=== PATIENT | female | born 1980 | race Two or more races ===

== ENCOUNTER 2020-10-05 13:57 | Outpatient (REF) | payer OTHER, SELFPAY ==
[2020-10-05 15:02] LABS: Albumin Level 4.6 g/dL (3.5-5.0); Calcium 9.5 mg/dL (8.4-10.2); Phosphorus 3.1 mg/dL (2.7-4.5)
[2020-10-05 15:25] LABS: Free T4 (Free Thyroxine) 1.21 ng/dL (0.71-1.85); Thyroid Stimulating Hormone 0.86 uIU/mL (0.32-4.0)
[2020-10-06 17:17] LABS: Calcium (PTHI) 9.5 mg/dL (8.6-10.2); PTHI 55 pg/mL (14-64)
== END 2020-10-05 13:58 | disposition home or self-care (01) ==
LOC: HO.LAB 13:57
PROVIDERS: PCP Nurse Practitioner Family; Visit Provider Internal Medicine
DX: E03.9 Hypothyroidism, unspecified (principal)
CPT/HCPCS: 36415; 82040; 82310; 83970; 84100; 84439; 84443

== ENCOUNTER → 2020-10-06 13:21 | Outpatient (BNVA) | payer OTHER, SELFPAY | PROVIDERS: PCP Nurse Practitioner Family; Visit Provider Surgery | DX: N64.52 Nipple discharge (principal); Z80.3 Family history of malignant neoplasm of breast | CPT/HCPCS: 99212 ==

== ENCOUNTER 2020-10-12 11:15 | Outpatient (REF) | payer OTHER, SELFPAY ==
--- NOTE | 2020-10-12 | MM_ITS ---
EXAMINATION: MM DIAGNOSTIC DIGITAL BREAST TOMOSYNTHESIS, BILATERAL US DIAGNOSTIC ULTRASOUND BREAST, BILATERAL CLINICAL INFORMATION: 39-year-old with chronic history bilateral nipple discharge for many years with recent bilateral retroareolar mastodynia and periareolar erythema. Remote history bilateral reduction mammoplasty and bilateral nipple piercing, both over 15 years ago. The remote history benign left breast biopsy. Family history breast cancer mother, age 58 and breast cancer history and 4 maternal aunts. Mother and aunts BRCA negative by patient history. The lifetime risk of breast cancer based on the Tyrer-Cuzick Model is 25%. COMPARISON: Mammography: 05/12/2019, 05/27/2016 TECHNIQUE: Digital breast tomosynthesis is performed in both the craniocaudal and mediolateral oblique views along with computer-aided detection (CAD). Synthesized 2D images are generated from the tomosynthesis. Ultrasound of both breasts is performed using grayscale imaging and color Doppler without and with harmonics. Both breasts are imaged retroareolar and periareolar region as well as lower outer quadrant right breast. FINDINGS: There are scattered areas of fibroglandular density (ACR BI-RADS breast composition Category b). Breast parenchymal pattern is similar to prior study. There is a stable mass with adjacent biopsy clip marker posterior 6:30 o'clock left breast. Scattered bilateral anterior breast calcifications are present and minor bilateral scarring consistent with the prior history reduction mammoplasty. There is no developing density or interval mass or architectural abnormality or abnormal calcifications. No focal skin thickening or coarsening of the Mikael's ligaments. Ultrasound of each breast demonstrates no architectural abnormality, focal duct ectasia, or intraductal lesion. There is no solid mass, skin thickening, or edema tracking in soft tissue planes. No abnormal color flow. There is a right retroareolar cyst measuring 0.5 cm. There is a left retroareolar cyst measuring 0.7 cm with fine incomplete avascular internal septations. Results are discussed with the patient at time of visit. Patient has appointment with Dr. Velazquez to follow today. Results called to medical representative (Ofe) for Dr. Velazquez at time of imaging. MM/MM diagnostic mammo BI IMPRESSION: 1. Mammography without significant change from prior studies. 2. Targeted ultrasound shows no solid mass, abscess, or focal duct ectasia. ASSESSMENT: BI-RADS 2: Benign RECOMMENDATION: 1. Patient should be managed based on the clinical impression. Decision to proceed with biopsy should be based on clinical grounds and degree of clinical concern. 2. The lifetime risk of breast cancer based on the Tyrer-Cuzick Model is 25%. Additional annual adjunct screening with breast MRI may be of benefit in women with a risk score of 20% or greater. 3. Otherwise, routine annual screening digital breast tomosynthesis. This patient's information was entered into a reminder system with a target due date for their next mammogram.
--- NOTE | 2020-10-12 11:29 | US_ITS ---
EXAMINATION: MM DIAGNOSTIC DIGITAL BREAST TOMOSYNTHESIS, BILATERAL US DIAGNOSTIC ULTRASOUND BREAST, BILATERAL CLINICAL INFORMATION: 39-year-old with chronic history bilateral nipple discharge for many years with recent bilateral retroareolar mastodynia and periareolar erythema. Remote history bilateral reduction mammoplasty and bilateral nipple piercing, both over 15 years ago. The remote history benign left breast biopsy. Family history breast cancer mother, age 58 and breast cancer history and 4 maternal aunts. Mother and aunts BRCA negative by patient history. The lifetime risk of breast cancer based on the Tyrer-Cuzick Model is 25%. COMPARISON: Mammography: 05/12/2019, 05/27/2016 TECHNIQUE: Digital breast tomosynthesis is performed in both the craniocaudal and mediolateral oblique views along with computer-aided detection (CAD). Synthesized 2D images are generated from the tomosynthesis. Ultrasound of both breasts is performed using grayscale imaging and color Doppler without and with harmonics. Both breasts are imaged retroareolar and periareolar region as well as lower outer quadrant right breast. FINDINGS: There are scattered areas of fibroglandular density (ACR BI-RADS breast composition Category b). Breast parenchymal pattern is similar to prior study. There is a stable mass with adjacent biopsy clip marker posterior 6:30 o'clock left breast. Scattered bilateral anterior breast calcifications are present and minor bilateral scarring consistent with the prior history reduction mammoplasty. There is no developing density or interval mass or architectural abnormality or abnormal calcifications. No focal skin thickening or coarsening of the Mikael's ligaments. Ultrasound of each breast demonstrates no architectural abnormality, focal duct ectasia, or intraductal lesion. There is no solid mass, skin thickening, or edema tracking in soft tissue planes. No abnormal color flow. There is a right retroareolar cyst measuring 0.5 cm. There is a left retroareolar cyst measuring 0.7 cm with fine incomplete avascular internal septations. Results are discussed with the patient at time of visit. Patient has appointment with Dr. Velazquez to follow today. Results called to medical device assembler (Ofe) for Dr. Velazquez at time of imaging. US/US breast LT limited IMPRESSION: 1. Mammography without significant change from prior studies. 2. Targeted ultrasound shows no solid mass, abscess, or focal duct ectasia. ASSESSMENT: BI-RADS 2: Benign RECOMMENDATION: 1. Patient should be managed based on the clinical impression. Decision to proceed with biopsy should be based on clinical grounds and degree of clinical concern. 2. The lifetime risk of breast cancer based on the Tyrer-Cuzick Model is 25%. Additional annual adjunct screening with breast MRI may be of benefit in women with a risk score of 20% or greater. 3. Otherwise, routine annual screening digital breast tomosynthesis. This patient's information was entered into a reminder system with a target due date for their next mammogram.
== END 2020-10-12 11:16 | disposition home or self-care (01) ==
LOC: HO.MAMMO 11:15
PROVIDERS: Visit Provider Surgery
DX: N64.52 Nipple discharge (principal); N64.4 Mastodynia; Z80.3 Family history of malignant neoplasm of breast
CPT/HCPCS: 76642; 77066; 99212

== ENCOUNTER → 2020-10-18 13:32 | Outpatient (BNVA) | payer OTHER, SELFPAY | PROVIDERS: PCP Nurse Practitioner Family; Visit Provider Surgery | DX: N61.1 Abscess of the breast and nipple (principal) | CPT/HCPCS: 99212 ==

== ENCOUNTER 2020-10-20 08:06 | Day surgery (SDC) | payer OTHER, SELFPAY ==
[2020-10-19 10:03] VITALS: BMI 24.2
--- NOTE | 2020-10-19 12:32 | HO.ANESPROP2 ---
HPI - Anesthesia Eval Consult details Narrative: 39yo F for I&D Abscess of bilateral breast s/p thyroidectomy 08/30/2020 for tx of Graves ds PMFSH Past Medical History Medical History (Updated 10/19/20 @ 12:37 by Yakelin Fox) Graves disease Hypothyroidism Interstitial cystitis Nipple discharge Family History Family History Mother Graves disease Heart disease Breast cancer Maternal Aunt History of kidney cancer Maternal Aunt Breast cancer History of carcinoma Surgical History Surgical History (Updated 10/19/20 @ 12:37 by Yakelin Fox) History of kidney surgery History of partial hysterectomy Hx of breast reduction, elective Hx of knee surgery Hx of lumpectomy S/P thyroidectomy (~08/2020) Social History Social History Alcohol intake: never Smoking Status: Current every day smoker Meds Allergies Allergy/AdvReac Type Severity Reaction Status Date / Time cephalexin [Keflex] Allergy Unknown syncope Verified 05/19/20 00:00 ciprofloxacin [Cipro] Allergy Unknown dizziness Verified 05/19/20 00:00 penicillin V Allergy Unknown Hives Verified 10/20/20 09:12 Sun Allergy Unknown Hives Uncoded 04/28/19 00:00 Home Medications Medication Instructions Recorded Confirmed Type diazepam 10 mg tablet 10 mg VAGINAL DAILY 10/06/20 10/18/20 History hydroxyzine HCl 50 mg tablet 50 mg PO BEDTIME 10/06/20 10/18/20 History Exam Exam Date and Time: October 19, 2020 1232 Height,Weight and Vital Signs: Height 5 ft 2 in Weight 60 kg Assessment and Plan Assessment Anesthesia Assessment: Chart Reviewed
--- NOTE | 2020-10-20 09:05 | MHC.SHP ---
Pre-Procedural Eval Section A The patient is an INPATIENT: No Changes since office visit: Yes Patient answered all questions; No Cold of Flu in the past 2 weeks, No New Medical Problems and No Changes in Medication The History & Physical has been completed within 30 days and I have reviewed it.: Yes Section B Chief Complaint: breast abscess Allergies: Allergies Allergy/AdvReac Type Severity Reaction Status Date / Time cephalexin [Keflex] Allergy Unknown syncope Verified 05/19/20 00:00 ciprofloxacin [Cipro] Allergy Unknown dizziness Verified 05/19/20 00:00 penicillin V Allergy Unknown Hives Unverified 05/19/20 00:00 Sun Allergy Unknown Hives Uncoded 04/28/19 00:00 Plan Diagnosis/Plan: Unchanged I have reviewed the history and physical and performed a pertinent physical examination on my patient. No changes have occurred unless specified.
[2020-10-20 09:09] VITALS: BP 102/55; PULSE 69; RESP 18; TEMP 36.6; O2SAT 99
[2020-10-20] MEDS: Lactated Ringers 1,000 ML 100 ML IVCONT (09:16)
[2020-10-20] MEDS: vancomycin HCL 1,000 MG in 0.9 % Sodium Chloride 250 ML 270 MG IV (09:16)
[2020-10-20 10:09] VITALS: BP 139/89; PULSE 109; RESP 12; TEMP 36; O2SAT 100
[2020-10-20 10:14] VITALS: BP 141/85; PULSE 94; RESP 14; O2SAT 98
[2020-10-20 10:19] VITALS: BP 122/73; PULSE 91; RESP 16; O2SAT 99
--- NOTE | 2020-10-20 10:20 | PM.OP ---
Brief Operative Note Date of Service: 10/20/20 Pre-op diagnosis: Bilateral breast abscess Post-op diagnosis: same Procedure: Incision and drainage bilateral breast abscess Implants: Non Surgeon: Chuy Velazquez MD Anesthesia: GLMA Supervisor [employer]: Shu Rucker Estimated blood loss (mL): 5 Pathology: none sent Condition: stable Disposition: PACU
--- NOTE | 2020-10-20 10:21 | P.OP_ITS ---
Operative Note Operative Note Date of Service: 10/20/20 Narrative: Preoperative diagnosis: Bilateral breast abscess Postoperative diagnosis: Same Procedure: Incision and drainage bilateral breast abscess Surgeon: Chuy Velazquez MD Senior Network Security Architect: Shu Rucker PA-C Anesthesia: General LMA Indication for procedure 39-year-old female patient presenting with recurrent bilateral breast infections found to have purulence discharge from the areola. She has a prior history of breast reduction and nipple piercings. Operative findings: Patient was found to have bilateral subareolar cavities with minimal. The material some granulation tissue. This was opened and drained. Cultures were obtained of the space and Arlington drains left in place. Specimen: Wound cultures Estimated blood loss 5 mL Complications: None Procedure details: Patient was brought to the OR and placed in a supine position. After administering general anesthesia the patient's breasts were prepped with ChloraPrep and draped in a sterile fashion. A surgical time-out was called the consent confirmed. Patient received preoperative antibiotics and Venodyne boots were placed. Local anesthesia consisting of 0.75% Sensorcaine was then infiltrated and ed areolar location in both breasts. Incision was made in the left breast at the 9 to 10 o'clock position at the nipple-areolar complex. Incision was carried down through subcutaneous tissue and retroareolar. A large cavity was identified. Cultures were obtained of this location. The granulation tissue was noted. Discharge is also noted from the previous piercing tract. This was probed with a lacrimal probe in the openings gently debrided. Wounds were then further anesthetized with the Sensorcaine. A quarter-inch Arlington drain was then placed within the hollows of this cavity and secured to the skin with a 4-0 nylon sutur e. Attention was then directed to the right breast were again a circumareolar incision was made the scalpel at the 2 to 3 o'clock position. This was carried out through subcutaneous tissue into the retroareolar space. Similar findings were noted on the right side. Wounds were further anesthetized and a Meg drain placed within the cavity. This was then secured to the skin with a 4-0 nylon suture. Sterile dressings consisting of gauze and ABD pads were then applied to both breasts followed by paper tape. Patient was woken from anesthesia and transported to PACU in stable condition. The patient tolerated the procedure well. Sponge, instrument, needle counts reported as correct.
[2020-10-20 10:24] VITALS: BP 116/67; PULSE 79; RESP 18; O2SAT 100
[2020-10-20 10:39] VITALS: BP 110/61; PULSE 81; RESP 18; TEMP 37.3; O2SAT 100
--- NOTE | 2020-10-20 11:17 | HO.POSTANES ---
Post Anesthesia Evaluation Post Anesthesia Evaluation Vital Signs: Vital Signs Temp Pulse Resp BP Pulse Ox 10/20/20 10:39 99.2 F 81 18 110/61 100 10/20/20 10:24 79 18 116/67 100 10/20/20 10:19 91 16 122/73 99 10/20/20 10:14 94 14 141/85 H 98 10/20/20 10:09 96.8 F 109 H 12 139/89 100 10/20/20 09:09 97.8 F 69 18 102/55 L 99 Anesthesia: General Mental Status: Awake Pain Control: Satisfactory Nausea/Vomiting: None Hydration: Adequate Anesthesia-Related Issues: No Anes. Related Issues
--- NOTE | 2020-10-20 11:20 | P.POSTANES_ITS ---
Post Anesthesia Evaluation Post Anesthesia Evaluation Vital Signs: Vital Signs Temp Pulse Resp BP Pulse Ox 10/20/20 10:39 99.2 F 81 18 110/61 100 10/20/20 10:24 79 18 116/67 100 10/20/20 10:19 91 16 122/73 99 10/20/20 10:14 94 14 141/85 H 98 10/20/20 10:09 96.8 F 109 H 12 139/89 100 10/20/20 09:09 97.8 F 69 18 102/55 L 99 Anesthesia: General LMA Mental Status: Awake Pain Control: Satisfactory Nausea/Vomiting: None Hydration: Adequate Anesthesia-Related Issues: No Anes. 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 Some minor bleeding noted.)
== END 2020-10-20 11:18 | disposition home or self-care (01) ==
PROVIDERS: PCP Nurse Practitioner Family; Visit Provider Surgery
PROC: (CPT 19120; principal; 2020-10-20 09:30)
DX: N61.1 Abscess of the breast and nipple (principal); Z98.890 Other specified postprocedural states
CPT/HCPCS: 19120; 87071; 87205; J1100; J2250; J2405; J3370

== ENCOUNTER → 2020-10-27 08:58 | Outpatient (BNVA) | payer MEDICAID, SELFPAY | PROVIDERS: PCP Nurse Practitioner Family; Visit Provider Internal Medicine ==

== ENCOUNTER → 2020-10-28 10:18 | Outpatient (BNVA) | payer OTHER, SELFPAY | PROVIDERS: PCP Nurse Practitioner Family; Visit Provider Surgery | DX: N61.1 Abscess of the breast and nipple (principal) | CPT/HCPCS: 99212 ==

== ENCOUNTER → 2020-11-02 15:50 | Outpatient (BNVA) | payer OTHER, SELFPAY | PROVIDERS: PCP Nurse Practitioner Family; Visit Provider Surgery | DX: N61.0 Mastitis without abscess (principal) | CPT/HCPCS: 99212 ==

== ENCOUNTER → 2020-11-25 09:55 | Outpatient (BNVA) | payer OTHER, SELFPAY | PROVIDERS: PCP Nurse Practitioner Family; Visit Provider Surgery | DX: L08.9 Local infection of the skin and subcutaneous tissue, unspecified (principal) | CPT/HCPCS: 99212 ==

== ENCOUNTER 2021-02-01 11:10 | Outpatient (REF) | payer OTHER, SELFPAY ==
[2021-02-01 12:58] LABS: Free T4 (Free Thyroxine) 0.94 ng/dL (0.71-1.85); Thyroid Stimulating Hormone 0.25 uIU/mL (0.32-4.0); Vitamin D 25-OH Total 20.9 ng/mL (>30)
[2021-02-02 09:11] LABS: Thyroglobulin Antibodies 3 IU/mL (< or = 1)
[2021-02-02 17:41] LABS: Thyroglobulin <0.1 ng/mL
== END 2021-02-01 11:11 | disposition home or self-care (01) ==
LOC: HO.LAB 11:10
PROVIDERS: Visit Provider Internal Medicine
DX: C73 Malignant neoplasm of thyroid gland (principal); E55.9 Vitamin D deficiency, unspecified
CPT/HCPCS: 36415; 82306; 84432; 84439; 84443; 86800

== ENCOUNTER → 2021-02-02 11:47 | Outpatient (BNVA) | payer OTHER, SELFPAY | PROVIDERS: PCP Nurse Practitioner Family; Visit Provider Internal Medicine ==

== ENCOUNTER 2021-02-09 14:11 | Outpatient (REF) | payer OTHER, SELFPAY ==
--- NOTE | ~2021-02-09 | US_ITS ---
EXAMINATION: US SOFT TISSUE NECK CLINICAL INFORMATION: Malignant neoplasm of thyroid gland. Status post total thyroidectomy 08/30/2020. COMPARISON: Ultrasound soft tissue head/neck thyroid dated 04/16/2019. TECHNIQUE: Ultrasound of the neck soft tissues is performed with high- frequency kirby-scale imaging and color Doppler. FINDINGS: THYROID BED: Prior thyroidectomy. No residual thyroid tissue demonstrated in the thyroid bed. No cystic or solid nodules demonstrated in the thyroid bed. RIGHT NECK SOFT TISSUES: Scattered architecturally normal nodes are present. The nodes show normal fatty hilus, normal cortical thickness, and no cystic change or calcification. No abnormal color flow. The largest nodes are as follows: Level 2: 3.0 x 0.6 x 2.1 cm. Abnormal raul architecture, likely cystic. Level 2: 0.9 x 0.3 x 0.7 cm. Normal raul architecture. Level 3:1.1 x 0.3 x 0.5 cm. Normal raul architecture. Level 5A: 0.5 x 0.3 x 0.6 cm. Normal raul architecture. LEFT NECK SOFT TISSUES: Scattered architecturally normal nodes are present. The nodes show normal fatty hilus, normal cortical thickness, and no cystic change or calcification. No abnormal color flow. The largest nodes are as follows: Level 1B: 0.8 x 0.5 x 0.9 cm. Abnormal raul architecture. Level 1B: 1.1 x 0.4 x 0.6 cm. Normal raul architecture. Level 2: 1.1 x 0.7 x 1.5 cm. Abnormal raul architecture. Internal cystic texture. Level 2:1.3 x 0.8 x 1.2 cm. Abnormal raul architecture with internal cystic texture. Level 2:1.9 x 0.7 x 1.2 cm. Abnormal raul architecture with thickened cortex and cystic texture. Level 5A: 1.4 x 0.3 x 1.2 cm. Abnormal architecture. US/US soft tiss head and/or neck IMPRESSION: 1. Total thyroidectomy with no residual thyroid seen in the thyroid bed. 2. If clinically indicated further evaluation of the neck soft tissues and nodes may be performed with CT soft tissue neck with intravenous contrast. 3. Several right and left lymph nodes with abnormal texture most of them appearing cystic. No solid lesions seen.
== END 2021-02-09 14:12 | disposition home or self-care (01) ==
LOC: HO.HMGCX 14:11
PROVIDERS: PCP Nurse Practitioner Family; Visit Provider Internal Medicine
DX: C73 Malignant neoplasm of thyroid gland (principal); E03.9 Hypothyroidism, unspecified
CPT/HCPCS: 76536

== ENCOUNTER 2021-02-22 11:21 | Outpatient (REF) | payer OTHER, SELFPAY ==
--- NOTE | ~2021-02-22 | US_ITS ---
EXAMINATION: ULTRASOUND-GUIDED LYMPH NODE BIOPSY CLINICAL INFORMATION: Thyroid cancer. COMPARISON: Previous soft tissue head and neck ultrasound most recent 02/09/2021 TECHNIQUE: Procedure and risks and benefits including bleeding and infection were discussed with the patient and informed consent was obtained. Initially, the right neck prepped and draped in usual sterile fashion. The skin and soft tissues of the right submandibular region were prepped and draped in usual sterile fashion. Using ultrasound guidance and a 25-gauge needle, access to the prominent right level 2 lymph node was obtained. 2 25-gauge FNA specimens were obtained. Subsequently, the left submandibular region was prepped and draped in the usual sterile fashion. The skin and soft tissues were anesthetized with 1% lidocaine plain. Using ultrasound guidance and a 25-gauge needle, both prominent left level 2 lymph nodes were sampled, one from the more inferior lymph node and 2 from the more superior lymph node. FINDINGS: There are prominent bilateral level 2 lymph nodes, one on the right and two on the left that were targeted for ultrasound-guided fine-needle aspiration. US/US biopsy lymph node IMPRESSION: Ultrasound-guided bilateral cervical lymph node fine-needle aspiration.
[2021-02-22] MEDS: Lidocaine HCl 1 % MPF 5 ML VIAL SUBCUT (12:54)
[2021-02-25 03:46] LABS: Thyroglobulin, Fine Needle Asp <0.1 ng/mL
== END 2021-02-22 11:22 | disposition home or self-care (01) ==
LOC: HO.US 11:21
PROVIDERS: Radiology Diagnostic Radiology; PCP Internal Medicine; Visit Provider Internal Medicine
DX: C73 Malignant neoplasm of thyroid gland (principal)
CPT/HCPCS: 36415; 38505; 76942; 88172; 88173

== ENCOUNTER 2021-04-26 13:03 | Outpatient (REF) | payer OTHER, SELFPAY ==
[2021-04-26 17:22] LABS: Free T4 (Free Thyroxine) 0.88 ng/dL (0.71-1.85); Thyroid Stimulating Hormone 29.04 uIU/mL (0.32-4.0); Vitamin D 25-OH Total 23.4 ng/mL (>30)
[2021-04-27 12:22] LABS: Thyroglobulin 0.2 ng/mL; Thyroglobulin Antibodies 1 IU/mL (< or = 1)
== END 2021-04-26 13:04 | disposition home or self-care (01) ==
LOC: HO.LAB 13:03
PROVIDERS: PCP Nurse Practitioner Family; Visit Provider Internal Medicine
DX: C73 Malignant neoplasm of thyroid gland (principal); E89.0 Postprocedural hypothyroidism; E55.9 Vitamin D deficiency, unspecified; R59.0 Localized enlarged lymph nodes; Z79.899 Other long term (current) drug therapy
CPT/HCPCS: 36415; 82306; 84432; 84439; 84443; 86800

== ENCOUNTER 2021-05-09 13:46 | Outpatient (REF) | payer OTHER, SELFPAY ==
--- NOTE | ~2021-05-09 | XR_ITS ---
EXAMINATION: XR KNEE, RIGHT CLINICAL INFORMATION: Pain. COMPARISON: None TECHNIQUE: Two views of the right knee. FINDINGS: Bones and soft tissues are normal. No fracture or joint effusion. Alignment is anatomic. Joint spaces are well maintained. No abnormal soft tissue calcification. XR/XR knee RT 2V IMPRESSION: Normal right knee.
--- NOTE | ~2021-05-09 | XR_ITS ---
EXAMINATION: XR HAND, RIGHT CLINICAL INFORMATION: Pain. COMPARISON: Right wrist March 29, 2020 TECHNIQUE: Three views of the right hand. FINDINGS: The bones and soft tissues are normal. No fracture. Alignment is anatomic. Joint spaces are maintained. No erosions or soft tissue calcifications. XR/XR hand RT min 3V IMPRESSION: Normal right hand.
--- NOTE | ~2021-05-09 | XR_ITS ---
EXAMINATION: XR HAND, LEFT CLINICAL INFORMATION: Pain. COMPARISON: None TECHNIQUE: Three views of the left hand. FINDINGS: The bones and soft tissues are normal. No fracture. Alignment is anatomic. Joint spaces are maintained. No erosions or soft tissue calcifications. XR/XR hand LT min 3V IMPRESSION: Normal left hand.
--- NOTE | ~2021-05-09 | XR_ITS ---
EXAMINATION: XR KNEE, LEFT CLINICAL INFORMATION: Pain. COMPARISON: None TECHNIQUE: Two views of the left knee. FINDINGS: Bones and soft tissues are normal. No fracture or joint effusion. Alignment is anatomic. Joint spaces are well maintained. No abnormal soft tissue calcification. XR/XR knee LT 2V IMPRESSION: Normal left knee.
[2021-05-09 16:26] LABS: MANUAL DIFF FLAG NO
[2021-05-09 16:33] LABS: Basophils Absolute Auto 0.1 X10*3/uL (0.0-0.2); Eosinophils Absolute Auto 0.2 X10*3/uL (0.0-0.4); Eosinophils Percent Auto 2.8 % (0-4); Hematocrit 37.8 % (37-47); Hemoglobin 12.5 g/dl (12.0-16.0); Imm Gran Abs Auto 0.03 X10*3/uL (0.00-0.03); Imm Gran Pct Auto 0.4 % (0.0-0.4); Lymphocytes Absolute Auto 3.1 X10*3/uL (1.2-4.9); Mean Corpuscular HGB Conc 33.1 g/dl (31.0-35.0); Mean Corpuscular Hemoglobin 31.9 pg (27.0-33.0); Mean Corpuscular Volume 96.4 fL (80-98); Mean Platelet Volume 10.7 fL (9.4-12.3); Monocytes Absolute Auto 0.4 X10*3/uL (0.1-1.2); Monocytes Percent Auto 4.7 % (2-11); Neutrophils Absolute Auto 4.3 X10*3/uL (2.0-8.3); Neutrophils Percent Auto 53.1 % (45-73); Platelet Count 313 X10*3/uL (160-400); Red Blood Count 3.92 X10*6/uL (4.20-5.50); Red Cell Distribution Width 13.2 % (11.0-16.0); White Blood Count 8.1 X10*3/uL (4.8-10.8)
[2021-05-09 16:43] LABS: Alanine Aminotransferase 9 U/L (0-31); Albumin Level 4.8 g/dL (3.5-5.0); Alkaline Phosphatase 54 U/L (39-117); Anion Gap 13 (12-20); Aspartate Amino Transferase 14 U/L (5-31); Bilirubin Total 0.4 mg/dL (0.0-1.0); Blood Urea Nitrogen 15 mg/dL (9-16); C Reactive Protein 0.06 mg/dL (< or = 0.50); Calcium 9.3 mg/dL (8.4-10.2); Carbon Dioxide 24 mmol/L (22-29); Chloride 106 mmol/L (96-108); Estimated Glomerular Filt Rate > 60; Glucose Random 111 mg/dL (60-115); Potassium 4.1 mmol/L (3.3-5.1); Sodium 139 mmol/L (135-145); Total Protein 7.3 g/dL (6.5-8.0)
[2021-05-09 17:10] LABS: Erythrocyte Sedimentation Rate 6 MM/HR (0-20)
[2021-05-09 17:56] LABS: Rheumatoid Factor < 15.0 IU/mL (<15.0)
[2021-05-10 08:12] LABS: HIV AB/AG Nonreactive (Nonreactive); HIV Num 1 0.08 S/CO (0.00-0.99)
[2021-05-10 09:51] LABS: Syphilis Screen Nonreactive (Nonreactive)
[2021-05-10 10:15] LABS: CT PCR NOT DETECTED (Not Detect.); NG PCR NOT DETECTED (Not Detect.)
[2021-05-10 21:06] LABS: Lyme Abs Screen <0.90 index
[2021-05-11 08:37] LABS: Cyclic Citrullinated Peptide <16 UNITS
[2021-05-11 14:37] LABS: Anti Nuclear Antibody Screen NEGATIVE (NEGATIVE)
[2021-05-12 14:12] LABS: Antibody to SS-A Antigen <1.0 NEG AI (<1.0 NEG); Antibody to SS-B Antigen <1.0 NEG AI (<1.0 NEG)
== END 2021-05-09 13:47 | disposition home or self-care (01) ==
LOC: HO.HMGCX 13:46
PROVIDERS: PCP Nurse Practitioner Family; Visit Provider Nurse Practitioner Family
DX: M25.50 Pain in unspecified joint (principal); Z11.3 Encounter for screening for infections with a predominantly sexual mode of transmission
CPT/HCPCS: 73130; 73560; 80053; 85025; 85652; 86038; 86039; 86140; 86200; 86235; 86431; 86617; 86618; 86780; 87389; 87491; 87591

== ENCOUNTER 2021-08-15 14:40 | Outpatient (REF) | payer OTHER, SELFPAY ==
--- NOTE | ~2021-08-15 | US_ITS ---
EXAMINATION: US SOFT TISSUE NECK CLINICAL INFORMATION: Malignant neoplasm of thyroid gland. Post total thyroidectomy. Follow up lymphadenopathy. COMPARISON: Previous neck ultrasound January 2021. TECHNIQUE: Ultrasound of the neck soft tissues is performed with high- frequency kirby-scale imaging and color Doppler. Comparison with previous exam is difficult. FINDINGS: THYROID BED: Prior thyroidectomy. No residual thyroid tissue demonstrated in the thyroid bed. No cystic or solid nodules demonstrated in the thyroid bed. RIGHT NECK SOFT TISSUES: There are 4 right cervical lymph nodes seen. The largest lymph node demonstrates abnormal morphology with slit-like are absent hilum. Remainder the lymph nodes demonstrate normal ultrasound morphology and flow. There is a newly appreciated right level 5 a lymph node. Previously identified right level 1A lymph node on January 2021 exam is not appreciated. The largest nodes are as follows: Level 1B: 2.7 x 0.6 x 1.8 cm. previous: 2.9 x 0.6 x 2.1 cm. Abnormal raul architecture with slit-like or absent hilum. Level 5A: 1.7 x 0.4 x 1.3 cm. Normal raul architecture. LEFT NECK SOFT TISSUES: There are 4 left cervical lymph nodes that were seen on previous exam. The largest lymph node demonstrates abnormal morphology with slit-like or absent hilum. The remainder of the lymph nodes demonstrate normal ultrasound morphology and flow. The largest nodes are as follows: Level 2: 1.8 x 0.7 x 1.7 cm, previous: 1.1 x 0.7 x 1.5 cm. Abnormal node architecture with slit-like or absent hilum. Level 1B: 1.7 x 0.4 x 1.4 cm, previous: 1.8 x 0.7 x 1.2. Normal raul architecture. US/US soft tiss head and/or neck IMPRESSION: Bilateral cervical lymph nodes. Comparison with prior exam is difficult. Largest right cervical lymph node that was previously sampled does not appear appreciably changed. Largest left cervical lymph node that was previously sampled is slightly increased in size.
[2021-08-15 17:29] LABS: Free T4 (Free Thyroxine) 0.88 ng/dL (0.71-1.85); Thyroid Stimulating Hormone 7.35 uIU/mL (0.32-4.0)
== END 2021-08-15 14:41 | disposition home or self-care (01) ==
LOC: HO.HMGCX 14:40
PROVIDERS: PCP Nurse Practitioner Family; Visit Provider Internal Medicine
DX: R59.0 Localized enlarged lymph nodes (principal); E89.0 Postprocedural hypothyroidism
CPT/HCPCS: 36415; 76536; 84439; 84443

== ENCOUNTER 2021-09-13 12:17 | Outpatient (REF) | payer OTHER, SELFPAY ==
[2021-09-13 13:50] LABS: MANUAL DIFF FLAG NO
[2021-09-13 13:57] LABS: Basophils Absolute Auto 0.1 X10*3/uL (0.0-0.2); Basophils Percent Auto 1.2 % (0-2); Eosinophils Absolute Auto 0.3 X10*3/uL (0.0-0.4); Eosinophils Percent Auto 4.2 % (0-4); Hematocrit 38.9 % (37.0-47.0); Hemoglobin 12.5 g/dl (12.0-16.0); Imm Gran Abs Auto 0.03 X10*3/uL (0.00-0.03); Imm Gran Pct Auto 0.4 % (0.0-0.4); Lymphocytes Absolute Auto 2.4 X10*3/uL (1.2-4.9); Lymphocytes Percent Auto 33.4 % (20-40); Mean Corpuscular HGB Conc 32.1 g/dl (31.0-35.0); Mean Corpuscular Hemoglobin 32.4 pg (27.0-33.0); Mean Corpuscular Volume 100.8 fL (80.0-98.0); Mean Platelet Volume 10.7 fL (9.4-12.3); Monocytes Absolute Auto 0.4 X10*3/uL (0.1-1.2); Monocytes Percent Auto 5.6 % (2-11); Neutrophils Percent Auto 55.2 % (45-73); Platelet Count 283 X10*3/uL (160-400); Red Blood Count 3.86 X10*6/uL (4.20-5.50); Red Cell Distribution Width 12.6 % (11.0-16.0); White Blood Count 7.3 X10*3/uL (4.8-10.8)
[2021-09-13 14:25] LABS: Alanine Aminotransferase 7 U/L (0-31); Albumin Level 4.2 g/dL (3.5-5.0); Alkaline Phosphatase 40 U/L (39-117); Anion Gap 10 (12-20); Aspartate Amino Transferase 12 U/L (5-31); Bilirubin Total 0.6 mg/dL (0.0-1.0); Blood Urea Nitrogen 12 mg/dL (9-16); Calcium 9.4 mg/dL (8.4-10.2); Carbon Dioxide 28 mmol/L (22-29); Chloride 108 mmol/L (96-108); Estimated Glomerular Filt Rate > 60; Glucose Random 60 mg/dL (60-115); Potassium 4.4 mmol/L (3.3-5.1); Sodium 142 mmol/L (135-145); Total Protein 6.3 g/dL (6.5-8.0)
[2021-09-13 14:42] LABS: Syphilis Screen Nonreactive (Nonreactive)
[2021-09-13 14:44] LABS: Free T4 (Free Thyroxine) 1.28 ng/dL (0.71-1.85)
[2021-09-13 14:47] LABS: Thyroid Stimulating Hormone 0.22 uIU/mL (0.32-4.0)
[2021-09-14 01:29] LABS: CT PCR NOT DETECTED (Not Detect.); NG PCR NOT DETECTED (Not Detect.)
[2021-09-14 08:34] LABS: HIV AB/AG Nonreactive (Nonreactive); HIV Num 1 0.08 S/CO (0.00-0.99)
[2021-09-15 05:42] LABS: Thyroglobulin <0.1 ng/mL; Thyroglobulin Antibodies 1 IU/mL (< or = 1)
== END 2021-09-13 12:18 | disposition home or self-care (01) ==
LOC: HO.HMGCLDS 12:17
PROVIDERS: Internal Medicine; PCP Nurse Practitioner Family; Visit Provider Nurse Practitioner Family
DX: Z11.4 Encounter for screening for human immunodeficiency virus [HIV] (principal); Z11.3 Encounter for screening for infections with a predominantly sexual mode of transmission; R59.0 Localized enlarged lymph nodes; E89.0 Postprocedural hypothyroidism
CPT/HCPCS: 36415; 80053; 84432; 84439; 84443; 85025; 86780; 86800; 87389; 87491; 87591

== ENCOUNTER 2021-10-16 14:56 | Outpatient (REF) | payer OTHER, SELFPAY ==
--- NOTE | ~2021-10-16 | XR_ITS ---
EXAMINATION: XR HIP, LEFT XR SI JOINTS CLINICAL INFORMATION: Left hip pain. M25.552 COMPARISON: Radiographs lumbar spine 08/21/2017 TECHNIQUE: Left hip is imaged in AP and frog-lateral projections. The sacroiliac joints are imaged in total of 3 views. There are 5 views between the 2 procedures. FINDINGS: Left hip: No fracture or dislocation or destructive process. There is no joint narrowing or erosive change or chondrocalcinosis. There is punctate mineralization in the superior lateral acetabular labrum. SI joints: The SI joints show no diastases, ankylosis, or other arthropathy. There is no erosive change or subchondral sclerosis. No visible L5 spondylolysis. XR/XR hip LT min 2V IMPRESSION: Unremarkable left hip and SI joints.
--- NOTE | ~2021-10-16 | XR_ITS ---
EXAMINATION: XR HIP, LEFT XR SI JOINTS CLINICAL INFORMATION: Left hip pain. M25.552 COMPARISON: Radiographs lumbar spine 08/21/2017 TECHNIQUE: Left hip is imaged in AP and frog-lateral projections. The sacroiliac joints are imaged in total of 3 views. There are 5 views between the 2 procedures. FINDINGS: Left hip: No fracture or dislocation or destructive process. There is no joint narrowing or erosive change or chondrocalcinosis. There is punctate mineralization in the superior lateral acetabular labrum. SI joints: The SI joints show no diastases, ankylosis, or other arthropathy. There is no erosive change or subchondral sclerosis. No visible L5 spondylolysis. XR/XR sacroiliac joint 1-2V IMPRESSION: Unremarkable left hip and SI joints.
[2021-10-16 16:25] LABS: Appearance Urine HAZY; Color Urine YELLOW; Glucose Urine UA NEG (NEG); Leukocyte Esterase Urine NEG (NEG); Nitrite Urine NEG (NEG); Specific Gravity - Urine 1.025 (1.005-1.025); Urine Blood NEG (NEG); Urine Ketones NEG (NEG); Urine Protein NEG (NEG-TRACE)
[2021-10-16 16:37] LABS: Bacteria Urine 2+ /LPF; RBC Urine 0 /HPF (0); Squamous Epithelial Cell Urine 3+ /LPF; WBC Urine 0 /HPF (0-4)
== END 2021-10-16 14:57 | disposition home or self-care (01) ==
LOC: HO.HMGCX 14:56
PROVIDERS: PCP Nurse Practitioner Family; Visit Provider Nurse Practitioner Family
DX: R30.0 Dysuria (principal); M25.562 Pain in left knee
CPT/HCPCS: 72200; 73502; 81001; 87086

== ENCOUNTER 2021-10-20 14:49 | Outpatient (REF) | payer OTHER, SELFPAY ==
--- NOTE | ~2021-10-20 | US_ITS ---
EXAMINATION: US SOFT TISSUE NECK CLINICAL INFORMATION: Thyroid cancer COMPARISON: Previous exams most recent July 2021 TECHNIQUE: Ultrasound of the neck soft tissues is performed with high- frequency kirby-scale imaging and color Doppler. FINDINGS: THYROID BED: Prior thyroidectomy. No residual thyroid tissue demonstrated in the thyroid bed. No cystic or solid nodules demonstrated in the thyroid bed. RIGHT NECK SOFT TISSUES: 2 right cervical lymph nodes are identified. These do not appear appreciably changed from previous exam. The nodes show normal fatty hilus, normal cortical thickness, and no cystic change or calcification. No abnormal color flow. Level 1B : 0.7 x 0.3 x 0.7 cm. Normal raul architecture. Level 1B : 3 x 0.5 x 2 cm. Normal raul architecture. LEFT NECK SOFT TISSUES: 3 left cervical lobe lymph nodes are identified. 2 lymph nodes do not appear appreciably changed. The nodes show normal fatty hilus, normal cortical thickness, and no cystic change or calcification. No abnormal color flow. Level 5A: 1.1 x 0.3 x 0.3 cm. Normal raul architecture. Level 2: 1.6 x 0.5 x 1.1 cm. Normal raul architecture. There is a new left level 2 lymph node measuring 0.9 x 0.7 x 1.3 cm. This demonstrates normal ultrasound morphology and flow. In the area indicated by the patient in the left occipital area there is a small superficial subcutaneous cystic lesion measuring 0.6 x 1.2 x 0.5 cm. US/US soft tiss head and/or neck IMPRESSION: Newly appreciated normal-appearing left level 2 cervical lymph node. Otherwise lymph nodes do not appear appreciably changed. Palpable abnormality in the left occipital area corresponds to a small subcutaneous cystic lesion measuring 6 x 2 x 5 mm.
[2021-10-20 17:06] LABS: Thyroid Stimulating Hormone 0.09 uIU/mL (0.32-4.0)
[2021-10-23 17:32] LABS: Thyroglobulin <0.1 ng/mL; Thyroglobulin Antibodies <1 IU/mL (< or = 1)
== END 2021-10-20 14:50 | disposition home or self-care (01) ==
LOC: HO.US 14:49
PROVIDERS: Absent Provider Internal Medicine; PCP Nurse Practitioner Family; Visit Provider Internal Medicine
DX: C73 Malignant neoplasm of thyroid gland (principal)
CPT/HCPCS: 36415; 76536; 84432; 84443; 86800

== ENCOUNTER 2022-01-04 09:48 | Outpatient (REF) | payer OTHER, SELFPAY ==
--- NOTE | ~2022-01-04 | CT_ITS ---
EXAMINATION: CT HEAD WITHOUT CONTRAST CLINICAL INFORMATION: Dizziness and giddiness. COMPARISON: There are no prior studies available comparison. TECHNIQUE: Contiguous axial imaging was performed from the skull base to vertex without intravenous administration of contrast. Coronal and sagittal reformatted images were generated at the technologist workstation. This CT examination was performed using dose optimization techniques as appropriate, variously including the following: *Automated exposure control *Adjustment of mA and/or kV according to patient size (this includes techniques or standardized protocols for targeted exams where dose is matched to indication/reason for exam; i.e. extremities or head) *Use of iterative reconstruction technique DLP: 680 mGy-cm FINDINGS: There is no evidence of acute intracranial hemorrhage or territorial infarction. No abnormal mass effect or midline shift is seen. Roman to white matter differentiation is well preserved. No extra-axial fluid collections are identified. The ventricles are normal in size. There is no abnormal attenuation within the brain parenchyma. The osseous structures and soft tissues are normal. The mastoid air cells and visualized portions of the paranasal sinuses are well aerated. CT/CT head/brain wo con IMPRESSION: 1. There are no acute bleeds or infarcts. No masses are demonstrated.
== END 2022-01-04 09:49 | disposition home or self-care (01) ==
LOC: HO.CT 09:48
PROVIDERS: PCP Nurse Practitioner Family; Visit Provider Nurse Practitioner Family
DX: R42 Dizziness and giddiness (principal)
CPT/HCPCS: 70450

== ENCOUNTER 2022-01-12 13:00 | Outpatient (RCR) | payer OTHER, SELFPAY ==
[2022-01-01 08:53] VITALS: BP 108/70
--- NOTE | 2022-01-01 10:08 | MHC.PT.EP ---
[facility] [place] Office [place] Office [place] Office [address] Tod Faith [address] [phone] F: [phone] F: [phone] F: [phone] F: [phone] Physical Therapy Plan of Care Date of Evaluation: Date of Surgery: Diagnosis: vertigo Assessment: 41 y/o F referred to PT with dizziness and giddiness. Insidious onset of dizziness began mid-September. She describes dizziness as being 'drunk' and feels like things are spinning. It can last a few minutes to all day. She has associated nausea with it and R ear 'drainage.' Reports difficulty wtih lying supine, looking up/down, looking R/L, and everything. Examination shows normal oculomotor tests, normal head thrust, impaired balance, 20/24 DGI, and (+) R BPPV. She was treated with Carleen maneuver x 2 rolls and on second roll was negative for sx and nystagmus. Will re-assess next visit. Recommend PT 3x/week for 4 weeks for vestibular rehab. Frequency and Duration: The patient will be seen 3x/week for 4 weeks Short Term Goals: 1. Compliant and I with HEP Assisted Goals: 1. Pt will be (-) for nystagmus and reports of vertigo in all diagnostic directions with resolution of BPPV in 4 weeks 2. Pt to be able to functionally move in all planes without provocation of dizziness and return to PLOF in 4 weeks 3. Pt to be educated on sx and indications to return to therapy when needed in 4. Eliminate BPPV in order to reduce risk of falls Treatment Plan: Modalities to reduce pain, spasms and effusion. Manual therapy to restore motion and function. Therapeutic exercise to improve strength and flexibility. Neuromuscular re-education for posture and balance. Therapeutic activities to return to functional activities of daily living. Electronically signed by: Dominga Barriga PT Please sign and return to therapist. Thank you for your referral.
--- NOTE | 2022-02-12 10:33 | MHC.PT.DC ---
[facility] [place] Office [place] Office [place] Office [address] Tod Faith [address] [phone] F: [phone] F: [phone] F: [phone] F: [phone] Physical Therapy Discharge Report Diagnosis: vertigo Date of Surgery: Date of Evaluation: 01/01/22 Date of Discharge: 02/12/22 Treatments to Date: 4 Cancellations to Date: 0 No Shows to Date: 2 Discharge Status: Achieved Goals Improved Function Independent with HEP Discharge Summary: At time of last visit, Re-assessed Bro-Hallpike and pt negative for nystagmus and sx all canals. Also re-assessed static balance and WNL. DGI now 23/24 (still uses rail on stairs). We kept chart open for 30 days in case of recurrence of BPPV and now will close chart Electronically signed by: Dominga Barriga PT Please sign and return to therapist. Thank you for your referral.
== END 2022-02-12 10:33 | disposition home or self-care (01) ==
LOC: HO.PTCHIC 13:00
PROVIDERS: PCP Nurse Practitioner Family; Visit Provider Nurse Practitioner Family
DX: R42 Dizziness and giddiness (principal)
CPT/HCPCS: 95992; 97112; 97161

== ENCOUNTER 2022-02-22 12:04 | Outpatient (REF) | payer OTHER, SELFPAY ==
[2022-02-22 13:58] LABS: MANUAL DIFF FLAG NO
[2022-02-22 14:02] LABS: Basophils Absolute Auto 0.1 X10*3/uL (0.0-0.2); Basophils Percent Auto 0.8 % (0-2); Eosinophils Absolute Auto 0.4 X10*3/uL (0.0-0.4); Eosinophils Percent Auto 3.3 % (0-4); Hematocrit 36.9 % (37.0-47.0); Hemoglobin 11.8 g/dl (12.0-16.0); Imm Gran Abs Auto 0.04 X10*3/uL (0.00-0.03); Imm Gran Pct Auto 0.3 % (0.0-0.4); Lymphocytes Absolute Auto 3.4 X10*3/uL (1.2-4.9); Lymphocytes Percent Auto 28.2 % (20-40); Mean Corpuscular Hemoglobin 31.8 pg (27.0-33.0); Mean Corpuscular Volume 99.5 fL (80.0-98.0); Mean Platelet Volume 10.3 fL (9.4-12.3); Monocytes Absolute Auto 0.8 X10*3/uL (0.1-1.2); Monocytes Percent Auto 6.7 % (2-11); Neutrophils Absolute Auto 7.3 x10*3/uL (2.0-8.3); Neutrophils Percent Auto 60.7 % (45-73); Platelet Count 346 X10*3/uL (160-400); Red Blood Count 3.71 X10*6/uL (4.20-5.50); Red Cell Distribution Width 12.8 % (11.0-16.0)
[2022-02-22 14:03] LABS: Appearance Urine CLEAR; Color Urine YELLOW; Glucose Urine UA NEG (NEG); Leukocyte Esterase Urine NEG (NEG); Nitrite Urine NEG (NEG); Specific Gravity - Urine 1.025 (1.005-1.025); Urine Blood NEG (NEG); Urine Ketones NEG (NEG); Urine Protein NEG (NEG-TRACE)
[2022-02-22 14:19] LABS: Alanine Aminotransferase 11 U/L (0-31); Albumin Level 4.2 g/dL (3.5-5.0); Alkaline Phosphatase 42 U/L (39-117); Anion Gap 11 (12-20); Aspartate Amino Transferase 10 U/L (5-31); Bilirubin Total 0.2 mg/dL (0.0-1.0); Blood Urea Nitrogen 18 mg/dL (9-16); Calcium 9.2 mg/dL (8.4-10.2); Carbon Dioxide 27 mmol/L (22-29); Chloride 106 mmol/L (96-108); Cholesterol 168 mg/dL; Estimated Glomerular Filt Rate > 60; Glucose Fasting 83 mg/dL (60-99); HDL Cholesterol 52 mg/dL; LDL Cholesterol Calculated 108 mg/dl; Sodium 139 mmol/L (135-145); Total Protein 6.4 g/dL (6.5-8.0); Triglycerides 40 mg/dL
[2022-02-22 14:33] LABS: Thyroid Stimulating Hormone 17.82 uIU/mL (0.32-4.0)
[2022-02-22 14:35] LABS: Vitamin D 25-OH Total 17.4 ng/mL (>30)
[2022-02-24 00:52] LABS: Thyroglobulin <0.1 ng/mL; Thyroglobulin Antibodies 1 IU/mL (< or = 1)
== END 2022-02-22 12:05 | disposition home or self-care (01) ==
LOC: HO.HMGCLDS 12:04
PROVIDERS: PCP Nurse Practitioner Family; Visit Provider Internal Medicine
DX: E89.0 Postprocedural hypothyroidism (principal); E55.9 Vitamin D deficiency, unspecified; R42 Dizziness and giddiness
CPT/HCPCS: 36415; 80053; 80061; 81003; 82306; 84432; 84439; 84443; 85025; 86800

== ENCOUNTER 2022-02-28 12:39 | Outpatient (REF) | payer OTHER, SELFPAY ==
[2022-02-28 13:44] LABS: MANUAL DIFF FLAG NO
[2022-02-28 14:00] LABS: Basophils Absolute Auto 0.1 X10*3/uL (0.0-0.2); Eosinophils Absolute Auto 0.3 X10*3/uL (0.0-0.4); Eosinophils Percent Auto 3.4 % (0-4); Hemoglobin 12.2 g/dl (12.0-16.0); Imm Gran Abs Auto 0.04 X10*3/uL (0.00-0.03); Imm Gran Pct Auto 0.4 % (0.0-0.4); Immature Retic Fraction 7.2 % (3.0-15.9); Lymphocytes Absolute Auto 3.5 X10*3/uL (1.2-4.9); Lymphocytes Percent Auto 36.9 % (20-40); Mean Corpuscular HGB Conc 32.1 g/dl (31.0-35.0); Mean Corpuscular Hemoglobin 31.9 pg (27.0-33.0); Mean Corpuscular Volume 99.2 fL (80.0-98.0); Mean Platelet Volume 10.2 fL (9.4-12.3); Monocytes Absolute Auto 0.6 X10*3/uL (0.1-1.2); Monocytes Percent Auto 6.2 % (2-11); Neutrophils Absolute Auto 4.9 x10*3/uL (2.0-8.3); Neutrophils Percent Auto 52.1 % (45-73); Platelet Count 314 X10*3/uL (160-400); Red Blood Count 3.83 X10*6/uL (4.20-5.50); Red Cell Distribution Width 12.9 % (11.0-16.0); Retic HGB Equivalent 37.1 pg (30.0-35.0); Reticulocyte Percent 1.2 % (0.5-1.8); Reticulocytes Absolute 0.044 X10*6/uL (0.026-0.095); White Blood Count 9.4 X10*3/uL (4.8-10.8)
[2022-02-28 14:51] LABS: Syphilis Screen Nonreactive (Nonreactive)
[2022-02-28 15:02] LABS: Ferritin 33 ng/mL (10-250); TSH reflex Free T4 40.22 uIU/mL (0.32-4.0)
[2022-02-28 15:06] LABS: Alanine Aminotransferase 9 U/L (0-31); Albumin Level 4.3 g/dL (3.5-5.0); Alkaline Phosphatase 45 U/L (39-117); Anion Gap 12 (12-20); Aspartate Amino Transferase 12 U/L (5-31); Bilirubin Total < 0.2 mg/dL (0.0-1.0); Blood Urea Nitrogen 17 mg/dL (9-16); Calcium 9.3 mg/dL (8.4-10.2); Carbon Dioxide 26 mmol/L (22-29); Chloride 107 mmol/L (96-108); Estimated Glomerular Filt Rate > 60; Glucose Random 97 mg/dL (60-115); Iron 75 mcg/dL (30-160); Lactate Dehydrogenase 156 U/L (122-220); Percent Iron Saturation 23 % (15-50); Potassium 3.7 mmol/L (3.3-5.1); Rheumatoid Factor < 15.0 IU/mL (<15.0); Sodium 141 mmol/L (135-145); Total Iron Binding Capacity 324 mcg/dL (228-428); Total Protein 6.7 g/dL (6.5-8.0); Unsaturated Iron Binding 249 ug/dL
[2022-02-28 15:40] LABS: Free T4 (Free Thyroxine) 0.66 ng/dL (0.71-1.85)
[2022-03-01 08:16] LABS: HBS Num1 106.75 mIU/mL (0-7.99); HBc Num1 0.08 S/CO (0.00-0.79); HBsAGNum1 0.23 S/CO (0.00-0.99); HIV AB/AG Nonreactive (Nonreactive); Hepatitis B Core Antibody Nonreactive (Nonreactive); Hepatitis B Surface Antigen Negative (Negative); ~HepC Num1 0.04 S/CO (0.00-0.79); ~Hepatitis B Surface Antibody REACTIVE (Nonreactive); ~Hepatitis C Antibody Nonreactive (Nonreactive)
[2022-03-02 05:47] LABS: Follicle Stimulating Hormone 8.8 mIU/mL
[2022-03-02 08:07] LABS: ~Hepatitis A Antibody IgM Nonreactive (Nonreactive)
[2022-03-02 22:37] LABS: Cyclic Citrullinated Peptide <16 UNITS
[2022-03-02 22:52] LABS: Lyme Abs Screen <0.90 index
[2022-03-07 16:26] LABS: Estrogen 259.5 pg/mL
== END 2022-02-28 12:40 | disposition home or self-care (01) ==
LOC: HO.HMGCLDS 12:39
PROVIDERS: PCP Nurse Practitioner Family; Visit Provider Nurse Practitioner Family
DX: D64.9 Anemia, unspecified (principal); D72.829 Elevated white blood cell count, unspecified; R79.89 Other specified abnormal findings of blood chemistry; Z11.3 Encounter for screening for infections with a predominantly sexual mode of transmission
CPT/HCPCS: 36415; 80053; 82672; 82728; 83001; 83540; 83615; 84439; 84443; 85025; 85045; 86200; 86431; 86617; 86618; 86704; 86706; 86709; 86780; 86803; 87340; 87389

== ENCOUNTER → 2022-03-01 09:10 | Outpatient (BNVA) | payer OTHER, SELFPAY | PROVIDERS: PCP Nurse Practitioner Family; Visit Provider Internal Medicine | DX: Z13.89 Encounter for screening for other disorder (principal) ==

== ENCOUNTER 2022-03-28 13:55 | Outpatient (REF) | payer OTHER, SELFPAY ==
--- NOTE | ~2022-03-28 | US_ITS ---
EXAMINATION: US SOFT TISSUE OF THE NECK CLINICAL INFORMATION: Malignant neoplasm of thyroid. Cervical lymph node mapping. COMPARISON: Ultrasound soft tissue neck 10/20/2021 and 08/15/2021. TECHNIQUE: Linear transducer grayscale and color Doppler examination of the thyroid bed and surrounding soft tissue. FINDINGS: No residual thyroid tissues are seen within the thyroid bed. The neck lymph nodes appear overall unchanged and within normal limits compared to previous ultrasound. On the right level II there is a 2.5 x 0.6 x 2.0 cm normal-appearing lymph node without thickened or lobular cortex. On the right level II there is a 9 x 3 x 7 mm normal-appearing lymph node. Within level IB on the left there is a 1.1 x 0.4 x 0.6 cm new but normal-appearing lymph node. On left level II there is a 1.1 x 0.6 x 1.4 cm normal-appearing lymph node. On the left level II there is a 1.3 x 0.5 x 1.0 cm new but normal-appearing lymph node. In level II on the left there is a 1.9 x 0.6 x 1.3 cm normal-appearing lymph node which had been previously biopsied with a benign result. On the left level VA there is a new 1.3 x 0.4 x 1.1 cm normal-appearing lymph node. US/US soft tiss head and/or neck IMPRESSION: No new suspicious neck lymph nodes.
[2022-03-28 16:26] LABS: MANUAL DIFF FLAG NO
[2022-03-28 16:43] LABS: Iron 94 mcg/dL (30-160); Percent Iron Saturation 32 % (15-50); Total Iron Binding Capacity 296 mcg/dL (228-428); Unsaturated Iron Binding 202 ug/dL
[2022-03-28 16:46] LABS: Basophils Absolute Auto 0.1 X10*3/uL (0.0-0.2); Basophils Percent Auto 0.9 % (0-2); Eosinophils Absolute Auto 0.1 X10*3/uL (0.0-0.4); Hematocrit 36.9 % (37.0-47.0); Hemoglobin 12.2 g/dl (12.0-16.0); Imm Gran Abs Auto 0.02 X10*3/uL (0.00-0.03); Imm Gran Pct Auto 0.2 % (0.0-0.4); Lymphocytes Absolute Auto 1.8 X10*3/uL (1.2-4.9); Lymphocytes Percent Auto 19.6 % (20-40); Mean Corpuscular HGB Conc 33.1 g/dl (31.0-35.0); Mean Corpuscular Hemoglobin 32.7 pg (27.0-33.0); Mean Corpuscular Volume 98.9 fL (80.0-98.0); Mean Platelet Volume 11.1 fL (9.4-12.3); Monocytes Absolute Auto 0.5 X10*3/uL (0.1-1.2); Neutrophils Absolute Auto 6.5 x10*3/uL (2.0-8.3); Neutrophils Percent Auto 72.3 % (45-73); Platelet Count 296 X10*3/uL (160-400); Red Blood Count 3.73 X10*6/uL (4.20-5.50); Red Cell Distribution Width 12.8 % (11.0-16.0)
[2022-03-28 17:04] LABS: Ferritin 45 ng/mL (10-250); Free T4 (Free Thyroxine) 1.47 ng/dL (0.71-1.85); Thyroid Stimulating Hormone 0.16 uIU/mL (0.32-4.0)
[2022-03-28 17:18] LABS: Folate 13.6 ng/mL (> or = 4.0); Vitamin B12 180 pg/mL (200-900)
[2022-03-30 01:41] LABS: Thyroglobulin <0.1 ng/mL; Thyroglobulin Antibodies 1 IU/mL (< or = 1)
== END 2022-03-28 13:56 | disposition home or self-care (01) ==
LOC: HO.HMGCX 13:55
PROVIDERS: Absent Provider Nurse Practitioner Family; PCP Nurse Practitioner Family; Visit Provider Internal Medicine
DX: D72.829 Elevated white blood cell count, unspecified (principal); C73 Malignant neoplasm of thyroid gland; E89.0 Postprocedural hypothyroidism
CPT/HCPCS: 36415; 76536; 82607; 82728; 82746; 83540; 84432; 84439; 84443; 85025; 86800

== ENCOUNTER 2022-04-30 10:19 | Outpatient (REF) | payer OTHER, SELFPAY ==
[2022-04-30 12:05] LABS: Free T4 (Free Thyroxine) 1.18 ng/dL (0.71-1.85); Thyroid Stimulating Hormone 1.31 uIU/mL (0.32-4.0)
[2022-05-02 01:32] LABS: Thyroglobulin <0.1 ng/mL; Thyroglobulin Antibodies 1 IU/mL (< or = 1)
== END 2022-04-30 10:20 | disposition home or self-care (01) ==
LOC: HO.HMGCLDS 10:19
PROVIDERS: Absent Provider Nurse Practitioner Family; PCP Nurse Practitioner Family; Visit Provider Internal Medicine
DX: E89.0 Postprocedural hypothyroidism (principal)
CPT/HCPCS: 36415; 84432; 84439; 84443; 86800

== ENCOUNTER → 2022-05-02 09:36 | Outpatient (BNVA) | payer OTHER, SELFPAY | PROVIDERS: PCP Nurse Practitioner Family; Visit Provider Internal Medicine | DX: C73 Malignant neoplasm of thyroid gland (principal); E89.0 Postprocedural hypothyroidism; E55.9 Vitamin D deficiency, unspecified; R59.0 Localized enlarged lymph nodes | CPT/HCPCS: 99212 ==

== ENCOUNTER 2022-11-01 10:03 | Outpatient (REF) | payer OTHER, SELFPAY ==
[2022-11-01 11:21] LABS: MANUAL DIFF FLAG NO
[2022-11-01 11:25] LABS: Appearance Urine Clear; Color Urine Yellow; Glucose Urine UA Negative (Negative); Leukocyte Esterase Urine Negative (Negative); Nitrite Urine Negative (Negative); Specific Gravity - Urine 1.015 (1.005-1.025); Urine Blood Negative (Negative); Urine Ketones Negative (Negative); Urine Protein Negative (Neg-Trace)
[2022-11-01 11:41] LABS: Basophils Absolute Auto 0.1 X10*3/uL (0.0-0.2); Basophils Percent Auto 1.2 % (0-2); Eosinophils Absolute Auto 0.2 X10*3/uL (0.0-0.4); Eosinophils Percent Auto 1.7 % (0-4); Hematocrit 39.3 % (37.0-47.0); Hemoglobin 13.1 g/dl (12.0-16.0); Imm Gran Abs Auto 0.03 X10*3/uL (0.00-0.03); Imm Gran Pct Auto 0.3 % (0.0-0.4); Lymphocytes Absolute Auto 2.1 X10*3/uL (1.2-4.9); Lymphocytes Percent Auto 21.5 % (20-40); Mean Corpuscular HGB Conc 33.3 g/dl (31.0-35.0); Mean Corpuscular Hemoglobin 33.3 pg (27.0-33.0); Mean Platelet Volume 10.2 fL (9.4-12.3); Monocytes Absolute Auto 0.5 X10*3/uL (0.1-1.2); Monocytes Percent Auto 5.6 % (2-11); Neutrophils Absolute Auto 6.7 x10*3/uL (2.0-8.3); Neutrophils Percent Auto 69.7 % (45-73); Platelet Count 354 X10*3/uL (160-400); Red Blood Count 3.93 X10*6/uL (4.20-5.50); Red Cell Distribution Width 11.9 % (11.0-16.0); White Blood Count 9.5 X10*3/uL (4.8-10.8)
[2022-11-01 12:21] LABS: Monotest Negative (Negative)
[2022-11-01 12:25] LABS: Alanine Aminotransferase 9 U/L (0-31); Albumin Level 4.8 g/dL (3.5-5.0); Alkaline Phosphatase 40 U/L (39-117); Anion Gap 12 (12-20); Aspartate Amino Transferase 13 U/L (5-31); Bilirubin Total 0.8 mg/dL (0.0-1.0); Blood Urea Nitrogen 14 mg/dL (9-16); Calcium 9.2 mg/dL (8.4-10.2); Carbon Dioxide 25 mmol/L (22-29); Chloride 106 mmol/L (96-108); Estimated Glomerular Filt Rate > 60; Glucose Random 86 mg/dL (60-115); Potassium 4.2 mmol/L (3.3-5.1); Sodium 139 mmol/L (135-145); Total Protein 7.2 g/dL (6.5-8.0)
[2022-11-01 12:29] LABS: TSH reflex Free T4 0.75 uIU/mL (0.32-4.0)
[2022-11-01 15:01] LABS: CT PCR NOT DETECTED (Not Detect.); NG PCR NOT DETECTED (Not Detect.)
[2022-11-02 08:50] LABS: HIV AB/AG Nonreactive (Nonreactive); HIV Num 1 0.04 S/CO (0.00-0.99)
[2022-11-02 08:52] LABS: Syphilis Screen Nonreactive (Nonreactive)
== END 2022-11-01 10:04 | disposition home or self-care (01) ==
LOC: HO.HMGCLDS 10:03
PROVIDERS: PCP Nurse Practitioner Family; Visit Provider Nurse Practitioner Family
DX: Z11.3 Encounter for screening for infections with a predominantly sexual mode of transmission (principal); Z11.4 Encounter for screening for human immunodeficiency virus [HIV]; R42 Dizziness and giddiness
CPT/HCPCS: 0353U; 80053; 81003; 84443; 85025; 86308; 86780; 87389

== ENCOUNTER 2023-02-22 10:03 | Outpatient (REF) | payer OTHER, SELFPAY ==
--- NOTE | ~2023-02-22 | US_ITS ---
EXAMINATION: US SOFT TISSUE NECK CLINICAL INFORMATION: Malignant neoplasm of thyroid gland. Cervical lymph node mapping. Previous right cervical lymph node fine-needle aspiration 02/22/2021. COMPARISON: Ultrasound soft tissue neck 03/28/2022 and 10/20/2021. TECHNIQUE: Ultrasound of the neck soft tissues is performed with high- frequency kirby-scale imaging and color Doppler. FINDINGS: RIGHT NECK SOFT TISSUES: Scattered architecturally normal nodes are present. The nodes show normal fatty hilus, normal cortical thickness, and no cystic change or calcification. No abnormal color flow. The largest nodes are as follows: Level 1:0.5 x 0.4 x 0.5 cm. Normal raul architecture. Level 2: 1.0 x 0.3 x 0.7 cm. Normal raul architecture. Level 3: 2.7 x 0.7 x 2.5 cm. Normal raul architecture. Previously measured 2.5 x 0.6 x 2.0 cm. Level 2: 0.9 x 0.3 x 0.5 cm. Normal raul architecture. Previously measured 0.9 x 0.3 x 0.6 cm. Level 3: 0.9 x 0.2 x 0.5 cm. Normal raul architecture. LEFT NECK SOFT TISSUES: Scattered architecturally normal nodes are present. The nodes show normal fatty hilus, normal cortical thickness, and no cystic change or calcification. No abnormal color flow. The largest nodes are as follows: Level Ib: 1.0 x 0.4 x 0.8 cm. Normal raul architecture. New. Level 2: 1.8 x 0.5 x 1.3 1 cm. Normal raul architecture. Previously measured 1.1 x 0.6 x 1.4 cm. Level 2: 1.0 x 0.7 x 1.0 cm. Normal raul architecture. Previously measured 1.3 x 0.5 x 1.0 cm. Level 2: 1.0 x 0.4 x 0.8 cm. Normal raul architecture. Previously measured 1.9 x 0.6 x 1.3 cm. Level 5A: 1.3 x 0.4 x 1.1 cm. Normal raul architecture. Previously measured 1.3 x 0.4 x 1.1 cm. Level 5B: 0.6 x 0.7 x 0.5 cm. Abnormal raul architecture. New. US/US soft tiss head and/or neck IMPRESSION: 1. Bilateral cervical lymph nodes as described above. These lymph nodes have normal raul architecture and have a benign appearance. It has slightly increased in size since previous ultrasound exam 03/28/2022. 2. If clinically indicated further evaluation of the neck soft tissues and nodes may be performed with CT soft tissue neck with intravenous contrast.
== END 2023-02-22 10:04 | disposition home or self-care (01) ==
LOC: HO.HMGCX 10:03
PROVIDERS: PCP Nurse Practitioner Family; Visit Provider Internal Medicine
DX: C73 Malignant neoplasm of thyroid gland (principal)
CPT/HCPCS: 76536

== ENCOUNTER 2023-03-01 08:09 | Outpatient (REF) | payer OTHER, SELFPAY ==
[2023-03-01 11:24] LABS: MANUAL DIFF FLAG NO
[2023-03-01 11:58] LABS: Basophils Absolute Auto 0.1 X10*3/uL (0.0-0.2); Eosinophils Absolute Auto 0.2 X10*3/uL (0.0-0.4); Eosinophils Percent Auto 2.5 % (0-4); Hematocrit 40.4 % (37.0-47.0); Hemoglobin 13.2 g/dl (12.0-16.0); Imm Gran Abs Auto 0.05 X10*3/uL (0.00-0.03); Imm Gran Pct Auto 0.5 % (0.0-0.4); Lymphocytes Absolute Auto 1.4 X10*3/uL (1.2-4.9); Lymphocytes Percent Auto 15.6 % (20-40); Mean Corpuscular HGB Conc 32.7 g/dl (31.0-35.0); Mean Corpuscular Hemoglobin 32.9 pg (27.0-33.0); Mean Corpuscular Volume 100.7 fL (80.0-98.0); Mean Platelet Volume 10.9 fL (9.4-12.3); Monocytes Absolute Auto 0.8 X10*3/uL (0.1-1.2); Monocytes Percent Auto 8.5 % (2-11); Neutrophils Absolute Auto 6.6 x10*3/uL (2.0-8.3); Neutrophils Percent Auto 71.9 % (45-73); Platelet Count 314 X10*3/uL (160-400); Red Blood Count 4.01 X10*6/uL (4.20-5.50); Red Cell Distribution Width 12.3 % (11.0-16.0); White Blood Count 9.2 X10*3/uL (4.8-10.8)
[2023-03-01 12:00] LABS: Appearance Urine Clear; Color Urine Yellow; Glucose Urine UA Negative (Negative); Leukocyte Esterase Urine Trace (Negative); Nitrite Urine Negative (Negative); UMIC TRIGGER UACC YES; Urine Blood Negative (Negative); Urine Ketones Negative (Negative); Urine Protein Negative (Neg-Trace)
[2023-03-01 12:06] LABS: Bacteria Urine None Seen (None Seen); Hyaline Casts Urine 0-2 /LPF (0-2); RBC Urine 0-2 /HPF (0-2); WBC Urine 0-5 /HPF (0-5)
[2023-03-01 12:50] LABS: Alanine Aminotransferase 8 U/L (0-31); Albumin Level 4.7 g/dL (3.5-5.0); Alkaline Phosphatase 43 U/L (39-117); Anion Gap 15 (12-20); Aspartate Amino Transferase 14 U/L (5-31); Bilirubin Total 0.7 mg/dL (0.0-1.0); Blood Urea Nitrogen 17 mg/dL (9-16); Calcium 9.4 mg/dL (8.4-10.2); Carbon Dioxide 23 mmol/L (22-29); Chloride 104 mmol/L (96-108); Cholesterol 178 mg/dL; Estimated Glomerular Filt Rate > 60; Glucose Fasting 83 mg/dL (60-99); HDL Cholesterol 73 mg/dL; LDL Cholesterol Calculated 89 mg/dl; Potassium 4.5 mmol/L (3.3-5.1); Sodium 137 mmol/L (135-145); Total Protein 7.6 g/dL (6.5-8.0); Triglycerides 83 mg/dL
[2023-03-01 13:06] LABS: Folate 12.4 ng/mL (> or = 4.0); Thyroid Stimulating Hormone 2.81 uIU/mL (0.32-4.0); Vitamin B12 237 pg/mL (200-900)
[2023-03-01 13:15] LABS: CT PCR NOT DETECTED (Not Detect.); NG PCR NOT DETECTED (Not Detect.)
[2023-03-01 14:29] LABS: HBS Num1 99.14 mIU/mL (0-7.99); HBc Num1 0.06 S/CO (0.00-0.79); HBsAGNum1 0.31 S/CO (0.00-0.99); HIV AB/AG Nonreactive (Nonreactive); HIV Num 1 0.06 S/CO (0.00-0.99); Hepatitis A Antibody IgM 0.22 Index (0-0.79); Hepatitis B Core Antibody Nonreactive (Nonreactive); Hepatitis B Surface Antigen Negative (Negative); ~HepC Num1 0.06 S/CO (0.00-0.79); ~Hepatitis A Antibody IgM Nonreactive (Nonreactive); ~Hepatitis B Surface Antibody REACTIVE (Nonreactive); ~Hepatitis C Antibody Nonreactive (Nonreactive)
[2023-03-01 15:18] LABS: Syphilis Screen Nonreactive (Nonreactive)
[2023-03-04 22:29] LABS: Herpes Simplex Type 1 IgG <0.90 index; Herpes Simplex Type 2 IgG 2.24 index
[2023-03-07 06:08] LABS: Thyroglobulin Antibody <1 IU/mL (<=1); Thyroglobulin Level <0.1 ng/mL
== END 2023-03-01 08:10 | disposition home or self-care (01) ==
LOC: HO.HMGCLDS 08:09
PROVIDERS: Absent Provider Internal Medicine; PCP Nurse Practitioner Family; Visit Provider Nurse Practitioner Family
DX: Z00.00 Encounter for general adult medical examination without abnormal findings (principal); E53.8 Deficiency of other specified B group vitamins; Z11.3 Encounter for screening for infections with a predominantly sexual mode of transmission; C73 Malignant neoplasm of thyroid gland
CPT/HCPCS: 0353U; 36415; 80053; 80061; 81001; 81003; 82607; 82746; 84432; 84439; 84443; 85025; 86695; 86696; 86704; 86706; 86709; 86780; 86800; 86803; 87340; 87389

== ENCOUNTER 2023-06-21 08:01 | Outpatient (REF) | payer OTHER, SELFPAY ==
--- NOTE | ~2023-06-21 | US_ITS ---
EXAMINATION: US SOFT TISSUE NECK CLINICAL INFORMATION: Nontoxic multinodular goiter. History of thyroid cancer. Complete thyroidectomy. COMPARISON: Ultrasound soft tissue neck 02/22/2023 and 03/28/2022. TECHNIQUE: Ultrasound of the neck soft tissues is performed with high-frequency kirby-scale imaging and color Doppler. FINDINGS: THYROID BED: Prior thyroidectomy. No residual thyroid tissue demonstrated in the thyroid bed. No cystic or solid nodules demonstrated in the thyroid bed. RIGHT NECK SOFT TISSUES: Scattered architecturally normal nodes are present. The nodes show normal fatty hilus, normal cortical thickness, and no cystic change or calcification. No abnormal color flow. The largest nodes are as follows: Level 3: 2.5 x 0.7 x 2 cm. Previous 2.7 x 0.7 x 2.5 cm. Normal raul architecture. Level 2: 1.1 x 0.3 x 0.9 cm. Normal raul architecture. Newly appreciated. LEFT NECK SOFT TISSUES: Scattered architecturally normal nodes are present. The nodes show normal fatty hilus, normal cortical thickness, and no cystic change or calcification. No abnormal color flow. The largest nodes are as follows: Level 2: 1.1 x 0.5 x 1.4 cm. Previous 1.8 x 0.5 x 1.3 cm Normal raul architecture. Level 2: 1.1 x 0.5 x 1 cm. Previous 1 x 0.7 x 1 Normal raul architecture. US/US soft tiss head and/or neck IMPRESSION: 1. No appreciable change in bilateral cervical lymphadenopathy. Largest lymph node is a right level 3 lymph node.
== END 2023-06-21 08:02 | disposition home or self-care (01) ==
LOC: HO.HMGCX 08:01
PROVIDERS: PCP Nurse Practitioner Family; Visit Provider Internal Medicine Endocrinology, Diabetes & Metabolism
DX: E04.2 Nontoxic multinodular goiter (principal)
CPT/HCPCS: 76536

== ENCOUNTER 2023-06-25 07:52 | Outpatient (AMB) | payer OTHER, SELFPAY ==
[2023-06-25 07:53] VITALS: BP 136/84; PULSE 71; BMI 22.5
--- NOTE | 2023-06-25 07:53 | A.OFFVIS_ITS ---
Intake Vital Signs 06/25/23 07:53 Height 5 ft 2 in Weight 122 lb 12.76 oz BMI 22.5 BP 136/84 Blood Pressure Location Lt brachial Position Sitting Pulse 71 Pulse Source Pulse Oximeter Intake Visit Reasons: F/U Thyroid nods - reminder for 7:45am/LVM Intake Note: Patient present today for thyroid nods follow up visit. Previous Dr. Garay patient. 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 Accompanied by: Self / Same As Patient Allergies cephalexin [Keflex] Allergy (Unknown, Verified 06/25/23 07:59) syncope ciprofloxacin [Cipro] Allergy (Unknown, Verified 06/25/23 07:59) dizziness penicillin V Allergy (Unknown, Verified 06/25/23 07:59) Hives Sun Allergy (Unknown, Uncoded 02/28/23 15:16) Hives Medication List - Last Reviewed 06/25/23 by Chanell Killian diazepam 10 mg vaginal DAILY PRN gabapentin 300 mg PO .4 x a day 30 days levothyroxine 88 mcg PO DAILY meclizine 25 mg PO TID PRN 10 days tizanidine 4 mg PO BID PRN HPI HPI Comments History of Present Illness Details 42 YO F with PMHx Anxiety who is seen in F/U for 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 The patient last saw Dr. Garay on 05/02/2022 She was previously followed for Grave's disease, and underwent a total thyroidectomy 08/30/[address] Aline Diez. Surgical path revealed a 0.2 + 0.1 cm focus of papillary microcarcinoma of the thyroid. There was no evidence of angio, lymphatic or perineural invasion. Margins were negative. 2/2 lymph nodes were negative for metastatic disease. This was staged as [id number]. Popsteratively she was started on Levothyroxine, and is currently taking 88 mcg PO daily. She did have an US of the neck which revealed some abnormal appearing cervical lymph nodes. She underwent FNA biopsy of the largest Right level 2 3.0 cm and Left level 2 1.9 cm lymph nodes, with no evidence of metastatic thyroid cancer. Repeat US head and neck was completed 03/28/2022 with no abnormal appearing lymph nodes identified. She reports good compliance with her thyroid hormone. She was previously taking many vitamins containing biotin, and stopped these. TSH normalized thereafter. TSH currently at goal. US Head and Neck: 03/28/2022 FINDINGS: No residual thyroid tissues are seen within the thyroid bed. The neck lymph nodes appear overall unchanged and within normal limits compared to previous ultrasound. On the right level II there is a 2.5 x 0.6 x 2.0 cm normal-appearing lymph node without thickened or lobular cortex. On the right level II there is a 9 x 3 x 7 mm normal-appearing lymph node. Within level IB on the left there is a 1.1 x 0.4 x 0.6 cm new but normal-appearing lymph node. On left level II there is a 1.1 x 0.6 x 1.4 cm normal-appearing lymph node. On the left level II there is a 1.3 x 0.5 x 1.0 cm new but normal-appearing lymph node. In level II on the left there is a 1.9 x 0.6 x 1.3 cm normal-appearing lymph node which had been previously biopsied with a benign result. On the left level VA there is a new 1.3 x 0.4 x 1.1 cm normal-appearing lymph node. US/US soft tiss head and/or neck IMPRESSION: No new suspicious neck lymph nodes. Labs: Laboratory Tests 04/30/22 04/30/22 10:25 10:25 TSH 1.31 Free T4 1.18 Thyroglobulin <0.1 L Thyroglobulin Anti body 1 feels fatigued on 88 mcg levothyroxine [facility] Medical History Breast implant status Cervical lymphadenopathy Graves disease Hypothyroidism Interstitial cystitis Nipple discharge Postoperative hypothyroidism Thyroid cancer Vitamin D deficiency Surgical History History of bladder surgery History of incision and drainage History of kidney surgery History of partial hysterectomy Hx of bilateral mastectomy Hx of breast reduction, elective Hx of knee surgery Hx of lumpectomy S/P thyroidectomy (~08/2020) Family History Mother Graves disease Heart disease Breast cancer Maternal Aunt History of kidney cancer Maternal Aunt History of carcinoma Breast cancer Maternal Grandmother Colon cancer Social History Household Members: Family Housing: House Alcohol intake: former Patient Tobacco Use Status: Former Tobacco user Quit Date: 5-6 months ago e-Cigarette/Vaping Use: Currently Using Second Hand Smoke Exposure: No Substance Use Type: Marijuana Current occupational status: employed 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 occupational exposures/hazards: Yes Cognitive needs: No Hearing needs: No Vision needs: No Physical Exam Const Other: There is a healed scar status post thyroidectomy . There is no cervical adenopathy palpated Assessment & Plan Assessment & Plan (1) Thyroid cancer: Code(s): C73 - Malignant neoplasm of thyroid gland Plan: This is a 42-year-old white female with a history of papillary microcarcinoma status post total thyroidectomy. She is currently replaced on 88 mcg levothyroxine. She is clinically and biochemically euthyroid. Thyroglobulin levels have been undetectable and ultrasound did not show any evidence of persistence or recurrence of thyroid cancer. Plan is to check neck ultrasound report when is available. Will increase levothyroxine to 100 mcg and recheck TSH and free T4 in 6 weeks time Orders: Orders Thyroid Stimulating Hormone 6 Weeks C73 - Malignant neoplasm of thyroid gland Free T4 (Free Thyroxine) 6 Weeks C73 - Malignant neoplasm of thyroid gland Medications: New levothyroxine 100 mcg PO DAILY 30 tabs 5RF Discontinued levothyroxine Discontinued Reason: Doctor's Order 88 mcg PO DAILY 90 tabs 1RF C73 - Malignant neoplasm of thyroid gland Coding Level of Care Code Est Pt Level 3 (15118) Diagnoses Thyroid cancer C73
== END 2023-06-25 08:17 | disposition home or self-care (01) ==
PROVIDERS: PCP Nurse Practitioner Family; Visit Provider Internal Medicine Endocrinology, Diabetes & Metabolism
DX: C73 Malignant neoplasm of thyroid gland (principal)
CPT/HCPCS: 99213

== ENCOUNTER → 2023-06-25 07:52 | Outpatient (BNVA) | payer OTHER, SELFPAY | PROVIDERS: PCP Nurse Practitioner Family; Visit Provider Internal Medicine Endocrinology, Diabetes & Metabolism | DX: C73 Malignant neoplasm of thyroid gland (principal) | CPT/HCPCS: 99212 ==

== ENCOUNTER 2023-07-12 08:11 | Outpatient (AMB) | payer OTHER, SELFPAY ==
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
[2023-07-12 08:31] VITALS: BP 114/76; PULSE 78; O2SAT 98; BMI 21.4
== END 2023-07-12 09:09 | disposition home or self-care (01) ==
PROVIDERS: PCP Nurse Practitioner Family; Visit Provider Physician Assistant Medical
DX: S05.01XA Injury of conjunctiva and corneal abrasion without foreign body, right eye, initial encounter (principal)
CPT/HCPCS: 99213

== ENCOUNTER 2023-07-22 09:52 | Outpatient (AMB) | payer OTHER, SELFPAY ==
--- NOTE | 2023-07-22 11:04 | AM.OFFWIN_ITS ---
Intake Vital Signs 07/22/23 11:05 Height 5 ft 2 in Weight 122 lb BMI 22.3 BP 120/76 Blood Pressure Location Rt brachial Position Sitting Pulse 73 Pulse Source Pulse Oximeter Temp 98.4 F Temp Source Temporal Artery Scan Pulse Oximetry (%) 98 Oxygen Delivery Method Room Air Intake Visit Reasons: EP, hip pain Intake Note: pt is here for c/o hip pain Patient Tobacco Use Status: Former Tobacco user Quit Date: 5-6 months ago Allergies cephalexin [Keflex] Allergy (Unknown, Verified 07/22/23 11:46) syncope ciprofloxacin [Cipro] Allergy (Unknown, Verified 07/22/23 11:46) dizziness penicillin V Allergy (Unknown, Verified 07/22/23 11:46) Hives Sun Allergy (Unknown, Uncoded 07/22/23 11:46) Hives Do you need a note to return to daycare/school/sports/work: Yes HPI EP, hip pain HPI Details 42-year-old female presents to the [facility] for a sick visit. Patient is in distress due to pain. She is reporting left hip and left knee pain. She says she has been diagnosed with rheumatoid arthritis in the past. 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 In the last 2 days she is complaining of intense pain in the hip and knee. Does not recall any fall or injury. Patient is walking with a slight limp and favoring her left hip. [facility] Medical History Breast implant status Cervical lymphadenopathy Graves disease Hypothyroidism Interstitial cystitis Nipple discharge Postoperative hypothyroidism Thyroid cancer Vitamin D deficiency Surgical History History of bladder surgery Hx of bilateral mastectomy History of incision and drainage S/P thyroidectomy (~08/2020) Hx of breast reduction, elective Hx of lumpectomy Hx of knee surgery History of kidney surgery History of partial hysterectomy Family History Mother Graves disease Heart disease Breast cancer Maternal Aunt History of kidney cancer Maternal Aunt History of carcinoma Breast cancer Maternal Grandmother Colon cancer Social History Household Members: Family Housing: House Alcohol intake: former Patient Tobacco Use Status: Former Tobacco user Quit Date: 5-6 months ago e-Cigarette/Vaping Use: Currently Using Second Hand Smoke Exposure: No Substance Use Type: Marijuana Current occupational status: employed 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 Current occupational exposures/hazards: Yes Cognitive needs: No Hearing needs: No Vision needs: No Physical Exam Vital Signs: Last Vital Signs Temp 98.4 F 07/22/23 11:05 Pulse 73 07/22/23 11:05 BP 120/76 07/22/23 11:05 Pulse Ox 98 07/22/23 11:05 Oxygen Delivery Method Room Air 07/22/23 11:05 BMI result Body Mass Index 22.3 Const General: cooperative and healthy appearing Nutritional Appearance: well nourished Orientation/consciousness: patient oriented x3 Limitations: no limitations HEENT Head: Yes normal to inspection Eyes General: appearance normal, both eyes and all related structures Neck Neck: Yes normal visual inspection Chest Chest palpation & inspection: normal palpation of entire chest wall Resp Effort & Inspection: normal respiratory effort Neuro General: patient oriented x3 Extrem Other: Left knee: Minimal discomfort on the lateral joint line. Pain on flexion. Full extension. Left hip: Internal and external rotation with minimal discomfort. Assessment & Plan Assessment & Plan (1) Arthralgia: Code(s): M25.50 - Pain in unspecified joint Plan: Despite patient's history, there is no definite diagnosis of rheumatoid arthritis. Prednisone will be given for pain relief. She was advised to follow-up with her primary care provider. A note has been sent to the primary care provider asking for a follow-up on the rheumatology appointment. Coding Level of Care Code Est Pt Level 4 (69660) Diagnoses Arthralgia M25.50
[2023-07-22 11:05] VITALS: BP 120/76; PULSE 73; TEMP 36.9; O2SAT 98; BMI 22.3
== END 2023-07-22 12:04 | disposition home or self-care (01) ==
PROVIDERS: PCP Nurse Practitioner Family; Visit Provider Internal Medicine
DX: M25.50 Pain in unspecified joint (principal)
CPT/HCPCS: 99214

== ENCOUNTER 2023-09-10 08:02 | Outpatient (AMB) | payer OTHER, SELFPAY ==
[2023-09-10 09:09] VITALS: BP 122/62; PULSE 72; TEMP 36.5; O2SAT 99; BMI 21.4
--- NOTE | 2023-09-10 09:09 | MHC.OFFWIV ---
Intake Vital Signs 09/10/23 09:09 Height 5 ft 2 in Weight 53.127 kg BMI 21.4 BP 122/62 Blood Pressure Location Rt brachial Position Sitting Pulse 72 Pulse Source Pulse Oximeter Temp 97.7 F Temp Source Temporal Artery Scan Pulse Oximetry (%) 99 Intake Visit Reasons: EP, congestion ([phone]) Intake Note: pt is here for c.o post covid 08/31/23 looking for return to work note Patient Tobacco Use Status: Former Tobacco user Quit Date: 5-6 months ago Allergies cephalexin [Keflex] Allergy (Unknown, Verified 09/10/23 09:10) syncope ciprofloxacin [Cipro] Allergy (Unknown, Verified 09/10/23 09:10) dizziness penicillin V Allergy (Unknown, Verified 09/10/23 09:10) Hives Sun Allergy (Unknown, Uncoded 07/22/23 11:46) Hives Do you need a note to return to daycare/school/sports/work: Yes HPI HPI Comments History of Present Illness Details 09 This is a 42-year-old female presenting to the clinic requesting a work note to return back status post having COVID on 08/31/2023, patient reports she is feeling much better, only having some congestion. Denies chest pain, shortness of breath, fevers, chills, nausea, vomiting, abdominal pain, headache, vision changes, dizziness and weakness Physical exam benign Patient likely recovering from viral illness. No acute findings. Other than congestion. Likely post viral. No signs of pneumonia or respiratory distress Plan at this time will give patient a work note. Educated patient on diagnosis and treatment plan, answered all question, patient verbalizes understanding. At this time patient will be discharged home, advised to return with new or worsening symptoms. Educated on worrisome signs and symptoms and when to return. At this time I feel comfortable discharge home. [facility] Medical History Breast implant status Cervical lymphadenopathy Vitamin D deficiency Postoperative hypothyroidism Thyroid cancer Nipple discharge Hypothyroidism Graves disease Interstitial cystitis Surgical History History of bladder surgery Hx of bilateral mastectomy History of incision and drainage S/P thyroidectomy (~08/2020) Hx of breast reduction, elective Hx of lumpectomy Hx of knee surgery History of kidney surgery History of partial hysterectomy Family History Mother Graves disease Heart disease Breast cancer Maternal Aunt History of kidney cancer Maternal Aunt History of carcinoma Breast cancer Maternal Grandmother Colon cancer Social History Household Members: Family Housing: House Alcohol intake: former Patient Tobacco Use Status: Former Tobacco user Quit Date: 5-6 months ago e-Cigarette/Vaping Use: Currently Using Second Hand Smoke Exposure: No Substance Use Type: Marijuana Current occupational status: 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 occupational 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/hazards: Yes Cognitive needs: No Hearing needs: No Vision needs: No Review of Systems Const Details: Constitutional : No Weight loss, No Fever, No Chills, No Fatigue, No Malaise ENT/Mouth : No sore throat, No Rhinorrhea Eyes: No Eye Pain, No Swelling, No Redness Cardiovascular : No Chest Pain, No SOB, No Dyspnea on Exertion, No Orthopnea, No Edema, No Palpitations Respiratory : No Cough, No Sputum, No Wheezing Gastrointestinal : No Nausea, No Vomiting, No Diarrhea, No Constipation, No abdominal Pain, No Hematochezia, No Melena Genitourinary : No Dysuria, No Urinary Frequency, No Hematuria, Musculoskeletal : No joint pain, No Myalgias, No Joint Swelling Skin : No Skin Lesions, No rash Neuro : No Weakness, No Numbness, No Dizziness, No Headache Psych : No Anxiety/Panic, No Depression All other systems reviewed and are negative All systems reviewed & are unremarkable except as noted in HPI and below Physical Exam Vital Signs: Last Vital Signs Temp 97.7 F 09/10/23 09:09 Pulse 72 09/10/23 09:09 BP 122/62 09/10/23 09:09 Pulse Ox 99 09/10/23 09:09 BMI result Body Mass Index 21.4 Vital signs stable Appearance: Alert.? Oriented X3.? No acute distress.? Head: Normocephalic, atraumatic, no step-offs or deformities Eyes: Pupils equal, round and reactive to light.? ENT: Pharynx normal.? Neck: Normal inspection.? Neck supple.? CVS: Normal heart rate and rhythm.? Pulses normal.? Respiratory: No respiratory distress.? Breath sounds normal.? Abdomen: Soft and nontender.? Skin: Skin warm and dry.? Normal skin color.? Normal skin turgor.? Extremities: No lower extremity edema.? No calf ttp. 5/5 strength to bilateral upper and lower extremities Neuro: Oriented X 3.? No motor deficit.? No sensory deficit. CN 2-12 intact Assessment & Plan Assessment & Plan (1) Nasal congestion: Code(s): R09.81 - Nasal congestion Plan Take your medications as prescribed. If you were prescribed antibiotics today, it is important that you take your medication to their entirety, do not skip any doses, do not finish them early. Follow-up with your primary care provider this week. Return to the emergency department with new or worsening symptoms. Such as fevers, chills, chest pain, shortness of breath, nausea, vomiting, dizziness, headache, vision changes, lethargy In case of emergency call 911 Coding Level of Care Code Est Pt Level 3 (74789) Diagnoses Nasal congestion R09.81
== END 2023-09-10 10:50 | disposition home or self-care (01) ==
PROVIDERS: PCP Nurse Practitioner Family; Visit Provider Physician Assistant
DX: R09.81 Nasal congestion (principal)
CPT/HCPCS: 99213

== ENCOUNTER 2023-10-15 13:57 | Outpatient (AMB) | payer OTHER, SELFPAY ==
[2023-10-15 14:04] VITALS: BP 96/70; PULSE 63; O2SAT 99; BMI 21.8
--- NOTE | 2023-10-15 14:04 | A.OFFVIS_ITS ---
Intake Vital Signs 10/15/23 14:04 Height 5 ft 2 in Weight 119 lb 0.794 oz BMI 21.8 BP 96/70 Blood Pressure Location Rt brachial Position Sitting Pulse 63 Pulse Source Pulse Oximeter Pulse Oximetry (%) 99 Oxygen Delivery Method Room Air Intake Visit Reasons: Joint Pain Intake Note: New pt presents today for consult. 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 Pain started approx 5 years ago. Has tried prednisone. 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 C/o bl hip pain radiating down to knees. 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: No Accompanied by: Self / Same As Patient Allergies cephalexin [Keflex] Allergy (Unknown, Verified 10/15/23 14:10) syncope ciprofloxacin [Cipro] Allergy (Unknown, Verified 10/15/23 14:10) dizziness penicillin V Allergy (Unknown, Verified 10/15/23 14:10) Hives Sun Allergy (Unknown, Uncoded 10/15/23 14:10) Hives Medication List - Last Reconciled 10/15/23 by Ana M Trejo MD diazepam 10 mg vaginal DAILY PRN diclofenac sodium 50 mg PO Q12H PRN 30 days gabapentin 300 mg PO .4 x a day 30 days levothyroxine 100 mcg PO DAILY tizanidine 4 mg PO BID PRN HPI HPI Comments History of Present Illness Details This is a 42-year-old female who presents for evaluation of polyarthralgia. Patient stated that she has had bilateral hip pain for a few years now. Worse on the left. The pain is worse when lying on her sides. On the left side it radiates down the outside of her left hip towards her knee. Tylenol does not provide any relief. She has been prescribed diclofenac which she takes twice a day which takes the edge off. She also has pain in both hands associated with morning stiffness lasting a few hours. 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 She has been having the same job for about 12 years. Patient states that she is generally hyper flexible but does not recall ever dislocating a joint. She has left-sided neck pain that intermittently travels towards her left upper extremity. She has left knee pain, worse with activity, intermittently she feels that her left knee gives out. Both her knees crack. She denies ever injuring her left knee. She has been taking diclofenac Twice daily and her knee pain is not improving. She states that she has some allergy. She developed hives when sun exposed. She denies any history of DVT/PE. She denies any fevers. She believes that her great maternal grandmother had rheumatoid arthritis. She is unaware of any swollen joints. Denies history suggestive of Raynaud's. [facility] Medical History Breast implant status Cervical lymphadenopathy Vitamin D deficiency Postoperative hypothyroidism Thyroid cancer Nipple discharge Hypothyroidism Graves disease Interstitial cystitis Surgical History History of bladder surgery Hx of bilateral mastectomy History of incision and drainage S/P thyroidectomy (~08/2020) Hx of breast reduction, elective Hx of lumpectomy Hx of knee surgery History of kidney surgery History of partial hysterectomy Family History Mother Graves disease Heart disease Breast cancer Maternal Aunt History of kidney cancer Maternal Aunt History of carcinoma Breast cancer Maternal Grandmother Colon cancer Family/Other Family history of autoimmune disorder Social History Household Members: Family Housing: House Alcohol intake: former Patient Tobacco Use Status: Former Tobacco user Quit Date: 5-6 months ago e-Cigarette/Vaping Use: Currently Using Second Hand Smoke Exposure: No Substance Use Type: Marijuana Current occupational status: employed 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 occupational 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/hazards: Yes Cognitive needs: No Hearing needs: No Vision needs: No Female Reproductive History Menstrual Total pregnancies: 3 Number of Living Children: 2 Ectopics: 1 Review of Systems Const Reports headache(s) and Reports weakness ENT Reports headache(s) and Reports neck pain GI Reports heartburn Reports difficulty voiding Musc Reports arthralgias, Reports neck pain and Reports stiffness Skin/Breast Reports photosensitivity Neuro Reports headache(s), Reports memory loss and Reports weakness Psych Reports abnormal sleep pattern, Reports anxiety and Reports memory loss Physical Exam Vital Signs: BMI result Body Mass Index 21.8 Const General: cooperative, healthy appearing and comfortable Nutritional Appearance: average body habitus Orientation/consciousness: patient oriented x3 Limitations: no limitations HEENT Head: Yes normocephalic and Yes atraumatic Mouth: moist mucous membranes Resp Effort & Inspection: normal respiratory effort and able to speak in complete sentences Auscultation: clear to auscultation bilaterally Cardio Rate: regular rate Rhythm: regular rhythm GI Inspection: No distended Palpation (GI): Soft to palpation and nontender Skin General skin exam: no rashes or lesions noted Neuro General: patient oriented x3 Extrem Other: Bilateral hyperextensible elbows Bilateral positive thumb sign Positive resisted wrist extension test on the right No swelling in both hands and wrists. Slight triggering of left hand index Right middle finger flexor tendon tenderness Normal nailfold capillaroscopy Some tingling and numbness traveling up the right forearm into the right medial epicondyle with Tinel's test. Negative Tinel's test on the left Normal range of motion of both shoulders with negative rotator cuff provocative maneuvers bilaterally Positive Spurling's test on the left Negative straight leg raise test bilaterally Right trochanteric bursa area tenderness with negative Baltazar's test Left trochanteric bursa area tenderness with positive Baltazar's test Left knee pain with flexion and extension Equivocal Rebecca's test on the left Negative MTP tenderness bilaterally Assessment & Plan Assessment & Plan (1) Arthralgia: Code(s): M25.50 - Pain in unspecified joint Qualifiers: Joint pain location: unspecified Qualified Code(s): M25.50 - Pain in unspecified joint Plan: This is a 42-year-old female who presents for evaluation of polyarthralgia. I do not see any swollen joints on exam. Patient is hyper flexible on exam. Her symptoms are likely due to mechanical and degenerative arthritis/tendinitis. Previous serologies showed negative LYUDMILA/RF/CCP/SSA/SSB Will refer patient to physical therapy for her hypermobility, greater trochanteric bursitis bilaterally and iliotibial band syndrome on the left (2) Greater trochanteric bursitis of left hip: Code(s): M70.62 - Trochanteric bursitis, left hip Plan: Refer to PT (3) Internal derangement of left knee: Code(s): M23.92 - Unspecified internal derangement of left knee Plan: History of left knee catching and locking, giving out. Left knee pain with range of motion on exam without significant swelling. Patient's symptoms and not improved with diclofenac. Previous knee x-ray was nondiagnostic. Will order left knee MRI to rule out internal derangement such as a meniscal tear (4) Paresthesia of hand, bilateral: Code(s): R20.2 - Paresthesia of skin Plan: Tingling and numbness traveling into the right medial epicondyle with tunnels test on the right hand, positive Spurling's test on the left Will order bilateral upper extremity EMG/NCV Plan I spent 61 minutes reviewing patient's chart, evaluating patient, ordering diagnostic workup, counseling patient and documenting in the chart Orders: Orders MR knee LT wo con Today M23.92 - Unspecified internal derangement of left knee PT Evaluation and Treatment Today M17.12 - Unilateral primary osteoarthritis, left knee, M35.7 - Hypermobility syndrome, M70.62 - Trochanteric bursitis, left hip, M76.32 - Iliotibial band syndrome, left leg NE electromyogram (EMG) Today R20.2 - Paresthesia of skin Coding Level of Care Code New Pt Level 5 (10287) Diagnoses Arthralgia, unspecified joint M25.50 Joint pain location: unspecified Greater trochanteric bursitis of left hip M70.62 Internal derangement of left knee M23.92 Paresthesia of hand, bilateral R20.2
== END 2023-10-15 14:54 | disposition home or self-care (01) ==
PROVIDERS: PCP Nurse Practitioner Family; Visit Provider Student in an Organized Health Care Education/Training Program
DX: M25.59 Pain in other specified joint (principal); M70.62 Trochanteric bursitis, left hip; M23.92 Unspecified internal derangement of left knee; R20.2 Paresthesia of skin
CPT/HCPCS: 99205

== ENCOUNTER → 2023-10-15 13:57 | Outpatient (BNVA) | payer OTHER, SELFPAY | PROVIDERS: PCP Nurse Practitioner Family; Visit Provider Student in an Organized Health Care Education/Training Program | DX: M25.50 Pain in unspecified joint (principal); M70.62 Trochanteric bursitis, left hip; M23.92 Unspecified internal derangement of left knee; R20.2 Paresthesia of skin | CPT/HCPCS: 99202 ==

== ENCOUNTER 2023-11-15 09:26 | Outpatient (REF) | payer OTHER, SELFPAY ==
--- NOTE | 2023-11-15 09:35 | EMG_ITS ---
Chief complaint: Polyarthralgia, hand tremors History of thyroid surgery for Graves disease, history of bilateral mastectomies, no past history of chemotherapy or radiation Reason for referral: Evaluate for ulnar neuropathy versus radiculopathy Referred by: Dr. Trejo Procedure done: Bilateral upper extremities NCS/EMG Precautions and/or limitations: Difficult tolerance of test but she was able to finish. The limb temperature was monitored continuously and remained between 32-36 degrees C during the performance of the NCS. Nerve Conduction Studies Anti Sensory Summary Table ?Stim Site NR Onset (ms) Norm Onset (ms) Peak (ms) Norm Peak (ms) O-P Amp (?V) Norm O-P Amp Site1 Site2 Delta-0 (ms) Dist (cm) Martin (m/s) Norm Martin (m/s) Left Median Anti Sensory (2nd Digit) Wrist ? 2.2 3.0 <3.6 34.8 >10 Wrist 2nd Digit 2.2 14.0 64 Right Median Anti Sensory (2nd Digit) Wrist ? 2.2 3.0 <3.6 35.8 >10 Wrist 2nd Digit 2.2 14.0 64 Right Radial Anti Sensory (Thumb) Forearm ? 1.6 2.2 <3.1 34.7 Forearm Thumb 1.6 0.0 Left Ulnar Anti Sensory (5th Digit) Wrist ? 2.2 3.0 <3.7 38.5 >15.0 Wrist 5th Digit 2.2 14.0 64 Right Ulnar Anti Sensory (5th Digit) Wrist ? 2.3 3.0 <3.7 44.6 >15.0 Wrist 5th Digit 2.3 14.0 61 Motor Summary Table ?Stim Site NR Onset (ms) Norm Onset (ms) O-P Amp (mV) Norm O-P Amp iAmp (mV) Amp (1st) (%) Site1 Site2 Delta-0 (ms) Dist (cm) Martin (m/s) Norm Martin (m/s) Left Median Motor (Abd Poll Brev) Wrist ? 3.0 <3.9 10.3 >4.5 13.3 100.0 Elbow Wrist 3.6 20.0 56 >45 Elbow ? 6.6 11.1 14.0 107.8 Right Median Motor (Abd Poll Brev) Wrist ? 3.0 <3.9 12.2 >4.5 14.9 100.0 Elbow Wrist 3.7 19.0 51 >45 Elbow ? 6.7 12.4 15.1 101.6 Left Ulnar Motor (Abd Dig Minimi) Wrist ? 2.6 <3.0 10.7 >5 13.2 100.0 B Elbow Wrist 3.0 16.5 55 >45 B Elbow ? 5.6 9.2 12.0 86.0 A Elbow B Elbow 1.5 10.0 67 >45 A Elbow ? 7.1 8.8 11.9 82.2 Right Ulnar Motor (Abd Dig Minimi) Wrist ? 3.0 <3.0 11.2 >5 14.4 100.0 B Elbow Wrist 2.9 17.0 59 >45 B Elbow ? 5.9 10.9 14.6 97.3 A Elbow B Elbow 1.7 10.0 59 >45 A Elbow ? 7.6 10.1 13.6 90.2 EMG ?Side Muscle Nerve Root Ins Act Fibs Psw Amp Dur Poly Recrt Int Pat Comment Right 1stDorInt Ulnar C8-T1 Nml Nml Nml Nml Nml 0 Nml Complete Right FlexCarRad Median C6-7 Nml Nml Nml Nml Nml 0 Nml Complete Right Biceps Musculocut C5-6 Nml Nml Nml Nml Nml 0 Nml Complete Right Triceps Radial C6-7-8 Nml Nml Nml Nml Nml 0 Nml Complete Right Deltoid Axillary C5-6 Nml Nml Nml Nml Nml 0 Nml Complete Left 1stDorInt Ulnar C8-T1 Nml Nml Nml Nml Nml 0 Nml Complete Left FlexCarRad Median C6-7 Nml Nml Nml Nml Nml 0 Nml Complete Left Biceps Musculocut C5-6 Nml Nml Nml Nml Nml 0 Nml Complete Left Triceps Radial C6-7-8 Nml Nml Nml Nml Nml 0 Nml Complete Left Deltoid Axillary C5-6 Nml Nml Nml Nml Nml 0 Nml Complete FINDINGS: All motor and sensory nerves tested showed normal latencies, amplitudes and conduction velocities. Concentric needle EMG was performed in selected muscles of the bilateral upper extremities. Study did not reveal signs of electric abnormalities as shown in the table below. IMPRESSION: 1. This is a normal study. 2. There is no electrodiagnostic evidence for median neuropathy, ulnar neuropathy, brachial plexopathy, or cervical radiculopathy. Thank you for your kind referral. Mandi Antunez MD, KATIUSKA Board Certified, [place] Board [employer] and Rehabilitation (ABPMR) Board Certified, [place] Board of Electrodiagnostic Medicine (ABEM) CODIN [id number] x 2 MTDD
== END 2023-11-15 09:27 | disposition home or self-care (01) ==
LOC: HO.NEURO 09:26
PROVIDERS: PCP Nurse Practitioner Family; Visit Provider Student in an Organized Health Care Education/Training Program
DX: R20.2 Paresthesia of skin (principal)
CPT/HCPCS: 95886; 95911

== ENCOUNTER → 2023-11-15 09:35 | Outpatient (BNV) | payer OTHER, SELFPAY | PROVIDERS: PCP Nurse Practitioner Family; Visit Provider Physical Medicine & Rehabilitation | DX: M79.641 Pain in right hand (principal); M79.642 Pain in left hand; R25.1 Tremor, unspecified; M13.0 Polyarthritis, unspecified | CPT/HCPCS: 95886; 95911 ==

== ENCOUNTER 2023-11-22 09:57 | Outpatient (REF) | payer OTHER, SELFPAY ==
[2023-11-22 13:27] LABS: MANUAL DIFF FLAG NO
[2023-11-22 13:37] LABS: Basophils Absolute Auto 0.1 X10*3/uL (0.0-0.2); Basophils Percent Auto 0.9 % (0-2); Eosinophils Absolute Auto 0.2 X10*3/uL (0.0-0.4); Eosinophils Percent Auto 3.1 % (0-4); Hematocrit 34.9 % (37.0-47.0); Hemoglobin 11.5 g/dl (12.0-16.0); Imm Gran Abs Auto 0.01 X10*3/uL (0.00-0.03); Imm Gran Pct Auto 0.1 % (0.0-0.4); Lymphocytes Absolute Auto 2.3 X10*3/uL (1.2-4.9); Mean Corpuscular Hemoglobin 32.7 pg (27.0-33.0); Mean Corpuscular Volume 99.1 fL (80.0-98.0); Mean Platelet Volume 10.6 fL (9.4-12.3); Monocytes Absolute Auto 0.5 X10*3/uL (0.1-1.2); Monocytes Percent Auto 7.1 % (2-11); Neutrophils Absolute Auto 3.7 x10*3/uL (2.0-8.3); Neutrophils Percent Auto 54.8 % (45-73); Platelet Count 293 X10*3/uL (160-400); Red Blood Count 3.52 X10*6/uL (4.20-5.50); Red Cell Distribution Width 12.6 % (11.0-16.0); White Blood Count 6.7 X10*3/uL (4.8-10.8)
[2023-11-22 13:54] LABS: Alanine Aminotransferase 8 U/L (0-31); Albumin Level 4.3 g/dL (3.5-5.0); Alkaline Phosphatase 35 U/L (39-117); Anion Gap 11 (12-20); Aspartate Amino Transferase 11 U/L (5-31); Bilirubin Total 0.5 mg/dL (0.0-1.0); Blood Urea Nitrogen 10 mg/dL (9-16); Calcium 8.8 mg/dL (8.4-10.2); Carbon Dioxide 26 mmol/L (22-29); Chloride 107 mmol/L (96-108); Estimated Glomerular Filt Rate > 60; Glucose Fasting 84 mg/dL (60-99); Iron 105 mcg/dL (30-160); Percent Iron Saturation 43 % (15-50); Potassium 3.9 mmol/L (3.3-5.1); Sodium 140 mmol/L (135-145); Total Iron Binding Capacity 244 mcg/dL (228-428); Total Protein 6.7 g/dL (6.5-8.0); Unsaturated Iron Binding 139 ug/dL
[2023-11-22 14:13] LABS: Ferritin 73 ng/mL (10-250); TSH reflex Free T4 0.05 uIU/mL (0.32-4.0)
[2023-11-22 14:24] LABS: Folate 9.1 ng/mL (> or = 4.0); Vitamin B12 294 pg/mL (200-900)
[2023-11-25 22:48] LABS: A. Phagocytphilium DNA,RT-PCR NOT DETECTED (NOT DETECTED); Babesia Microti DNA, RT-PCR NOT DETECTED (NOT DETECTED); Borrelia Miyamotoi,DNA RT-PCR NOT DETECTED (NOT DETECTED); E.Chaffeensis DNA RT-PCR NOT DETECTED (NOT DETECTED); Lyme(Borrelia ssp)DNA RT-PCR NOT DETECTED (NOT DETECTED)
== END 2023-11-22 09:58 | disposition home or self-care (01) ==
LOC: HO.HMGCLDS 09:57
PROVIDERS: PCP Nurse Practitioner Family; Visit Provider Nurse Practitioner Family
DX: R40.20 Unspecified coma (principal); R20.2 Paresthesia of skin
CPT/HCPCS: 36415; 80053; 82607; 82728; 82746; 83540; 84439; 84443; 85025; 87468; 87469; 87478; 87484; 87798

== ENCOUNTER 2023-12-02 08:46 | Outpatient (AMB) | payer OTHER, SELFPAY ==
--- NOTE | 2023-12-02 09:14 | AM.OFFWIN_ITS ---
Intake Vital Signs 12/02/23 09:17 Height 5 ft 2 in Weight 119 lb BMI 21.8 BP 112/78 Blood Pressure Location Rt brachial Position Sitting Pulse 100 Pulse Source Pulse Oximeter Pulse Oximetry (%) 98 Oxygen Delivery Method Room Air Intake Visit Reasons: EST/backpelvis pain/fell down [phone] Intake Note: patient here because she fell down this morning after her shower and now lower back pain in groin area and goes down the left leg. Patient Tobacco Use Status: Former Tobacco user Quit Date: 5-6 months ago Allergies cephalexin [Keflex] Allergy (Unknown, Verified 12/02/23 09:42) syncope ciprofloxacin [Cipro] Allergy (Unknown, Verified 12/02/23 09:42) dizziness penicillin V Allergy (Unknown, Verified 12/02/23 09:42) Hives Sun Allergy (Unknown, Uncoded 12/02/23 09:42) Hives Medication List - Last Reconciled 12/02/23 by Kev Esqueda MD diazepam 10 mg vaginal DAILY PRN diclofenac sodium 50 mg PO Q12H PRN 30 days gabapentin 300 mg PO .4 x a day 30 days levothyroxine 88 mcg PO DAILY levothyroxine 100 mcg PO DAILY tizanidine 4 mg PO BID PRN Do you need a note to return to daycare/school/sports/work: Yes HPI EST/backpelvis pain/fell down [phone] HPI Details 43-year-old female presents to the [facility] e for a sick visit. Patient reports, that she slipped on clothes left on her stairs inside the house. It was a carpeted stairs. Patient slid down the stairs and feels her left leg jammed upwards into the hip. Able to walk with a limp. [facility] Medical History Breast implant status Cervical lymphadenopathy Vitamin D deficiency Postoperative hypothyroidism Thyroid cancer Nipple discharge Hypothyroidism Graves disease Interstitial cystitis Surgical History History of bladder surgery Hx of bilateral mastectomy History of incision and drainage S/P thyroidectomy (~08/2020) Hx of breast reduction, elective Hx of lumpectomy Hx of knee surgery History of kidney surgery History of partial hysterectomy Family History Mother Graves disease Heart disease Breast cancer Maternal Aunt History of kidney cancer Maternal Aunt History of carcinoma Breast cancer Maternal Grandmother Colon cancer Family/Other Family history of autoimmune disorder Social History Household Members: Family Housing: House Alcohol intake: former Patient Tobacco Use Status: Former Tobacco user Quit Date: 5-6 months ago e-Cigarette/Vaping Use: Currently Using Second Hand Smoke Exposure: No Substance Use Type: Marijuana Current occupational 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 Current occupational exposures/hazards: Yes Cognitive needs: No Hearing needs: No Vision needs: No Physical Exam Vital Signs: Last Vital Signs Pulse 100 12/02/23 09:17 BP 112/78 12/02/23 09:17 Pulse Ox 98 12/02/23 09:17 Oxygen Delivery Method Room Air 12/02/23 09:17 BMI result Body Mass Index 21.8 Const General: cooperative and healthy appearing Nutritional Appearance: well nourished Orientation/consciousness: patient oriented x3 Limitations: no limitations HEENT Head: Yes normal to inspection Eyes General: appearance normal, both eyes and all related structures Neck Neck: Yes normal visual inspection Chest Chest palpation & inspection: normal palpation of entire chest wall Resp Effort & Inspection: normal respiratory effort Neuro General: patient oriented x3 Extrem Other: Examination done with a female electromedical equipment repairer in the room. No visible bruising. Left hip: No pain on internal and external rotation. Pain on flexion of the thigh at the hip. Inguinal area is tender. Assessment & Plan Assessment & Plan (1) Contusion of left hip: Code(s): S70.02XA - Contusion of left hip, initial encounter Plan: X-ray images personally reviewed by me. No fractures seen. Patient was advised to rest and use a heating pad. Continue the anti-inflammatory she takes for her arthritis. Note for work given. Orders: Orders XR hip LT w PEL1V Today S70.02XA - Contusion of left hip, initial encounter Coding Level of Care Code Est Pt Level 4 (35777) Diagnoses Contusion of left hip S70.02XA
[2023-12-02 09:17] VITALS: BP 112/78; PULSE 100; O2SAT 98; BMI 21.8
== END 2023-12-02 10:29 | disposition home or self-care (01) ==
PROVIDERS: PCP Nurse Practitioner Family; Visit Provider Internal Medicine
DX: S70.02XA Contusion of left hip, initial encounter (principal)
CPT/HCPCS: 99214

== ENCOUNTER 2023-12-02 09:42 | Outpatient (REF) | payer OTHER, SELFPAY ==
--- NOTE | ~2023-12-02 | XR_ITS ---
EXAMINATION: XR HIP, LEFT CLINICAL INFORMATION: Contusion of left hip. COMPARISON: 10/16/2021 TECHNIQUE: Two views of the left hip. AP view of the pelvis. FINDINGS: There is discontinuity of the left acetabular roof seen on both projections. This appears symmetric with the contralateral side. The appearance is unchanged relative to 10/16/2021. Sacrum is partially obscured by overlying bowel contents. Joint spaces are maintained. Scattered pelvic phleboliths. Sacroiliac joints and pubic symphysis are intact. XR/XR hip LT w PEL1V IMPRESSION: No acute abnormality.
== END 2023-12-02 09:43 | disposition home or self-care (01) ==
LOC: HO.HMGCX 09:42
PROVIDERS: PCP Nurse Practitioner Family; Referring Provider Nurse Practitioner Family; Visit Provider Internal Medicine
DX: S70.02XA Contusion of left hip, initial encounter (principal)
CPT/HCPCS: 73502

== ENCOUNTER 2023-12-31 15:11 | Outpatient (REF) | payer OTHER, SELFPAY ==
--- NOTE | ~2023-12-31 | US_ITS ---
EXAMINATION: US SOFT TISSUE NECK CLINICAL INFORMATION: Cervical lymphadenopathy status post thyroidectomy. History of 02/22/2021 right cervical lymph node fine-needle aspiration with benign pathology. COMPARISON: 06/21/2023, thought 02/22/2023, 03/28/2022. TECHNIQUE: Ultrasound of the neck soft tissues is performed with high- frequency kirby-scale imaging and color Doppler. FINDINGS: THYROID BED: Prior thyroidectomy. No residual thyroid tissue demonstrated in the thyroid bed. No cystic or solid nodules demonstrated in the thyroid bed. RIGHT NECK SOFT TISSUES: Bilateral lymph nodes again identified. RIGHT: Level 1B: 0.6 x 0.7 x 0.3 cm. Unremarkable morphology. This appears to correspond with 0.7 x 0.9 x 0.3 cm node seen previously. Level II: 1.8 x 3.1 x 0.5 cm. Absence of fatty hilum. Previous measurement was 2.5 x 0.7 x 2.0 cm. Level VA: 0.9 x 1.1 x 0.2 cm. Absence of fatty hilum and slitlike. Not seen previously. LEFT: Level 1A: 0.7 x 0.2 x 0.5 cm. Normal architecture. Not seen previously. Level 1A: 1.9 x 0.4 x 1.0 cm, previously similar appearing lymph node measured 1.0 x 0.4 x 0.9 cm., described as level 2. Level II: 2.1 x 0.5 x 1.3 cm, previously 1.1 x 0.5 x 1.4 cm. Absence of fatty hilum. This appears to correspond with 1.3 x 1.9 x 0.6 cm lymph node seen on 03/28/2022, previously biopsied with benign results. US/US soft tiss head and/or neck IMPRESSION: 1. Redemonstration bilateral cervical lymph nodes. Slight increase in size left left level 1A lymph node. Interval new bilateral lymph nodes, on the right level VA measuring 1.1 cm, on the left level 1A measuring 7 mm. 2. If clinically indicated further evaluation of the neck soft tissues and nodes may be performed with CT soft tissue neck with intravenous contrast.
[2023-12-31 16:18] LABS: MANUAL DIFF FLAG NO
[2023-12-31 16:30] LABS: Appearance Urine Clear; Color Urine Yellow; Glucose Urine UA Negative (Negative); Leukocyte Esterase Urine Negative (Negative); Nitrite Urine Negative (Negative); PH 7.5 (5.0-9.0); Specific Gravity - Urine 1.015 (1.005-1.025); Urine Blood Negative (Negative); Urine Ketones Negative (Negative); Urine Protein Negative (Neg-Trace)
[2023-12-31 16:30] LABS: Basophils Absolute Auto 0.1 X10*3/uL (0.0-0.2); Basophils Percent Auto 0.7 % (0-2); Eosinophils Absolute Auto 0.2 X10*3/uL (0.0-0.4); Eosinophils Percent Auto 2.1 % (0-4); Hematocrit 36.3 % (37.0-47.0); Hemoglobin 12.1 g/dl (12.0-16.0); Imm Gran Abs Auto 0.02 X10*3/uL (0.00-0.03); Imm Gran Pct Auto 0.2 % (0.0-0.4); Lymphocytes Absolute Auto 3.1 X10*3/uL (1.2-4.9); Lymphocytes Percent Auto 31.4 % (20-40); Mean Corpuscular HGB Conc 33.3 g/dl (31.0-35.0); Mean Corpuscular Hemoglobin 31.9 pg (27.0-33.0); Mean Corpuscular Volume 95.8 fL (80.0-98.0); Mean Platelet Volume 10.4 fL (9.4-12.3); Monocytes Absolute Auto 0.6 X10*3/uL (0.1-1.2); Monocytes Percent Auto 6.3 % (2-11); Neutrophils Absolute Auto 5.8 x10*3/uL (2.0-8.3); Neutrophils Percent Auto 59.3 % (45-73); Platelet Count 339 X10*3/uL (160-400); Red Blood Count 3.79 X10*6/uL (4.20-5.50); Red Cell Distribution Width 12.2 % (11.0-16.0); White Blood Count 9.7 X10*3/uL (4.8-10.8)
[2023-12-31 17:14] LABS: TSH reflex Free T4 0.23 uIU/mL (0.32-4.0); Vitamin D 25-OH Total 16.4 ng/mL (>30)
[2023-12-31 17:29] LABS: Folate 7.7 ng/mL (> or = 4.0); Vitamin B12 461 pg/mL (200-900)
[2023-12-31 18:01] LABS: Free T4 (Free Thyroxine) 0.98 ng/dL (0.71-1.85)
[2024-01-01 21:58] LABS: Prot Elec - Albumin 4.5 g/dL (3.8-4.8); Prot Elec - Alpha1 0.3 g/dL (0.2-0.3); Prot Elec - Alpha2 0.7 g/dL (0.5-0.9); Prot Elec - Beta 1 0.4 g/dL (0.4-0.6); Prot Elec - Beta 2 0.3 g/dL (0.2-0.5); Prot Elec - Gamma 0.8 g/dL (0.8-1.7); Prot Elec - Total Protein 6.9 g/dL (6.1-8.1)
[2024-01-03 08:49] LABS: Hematocrit 35.5 % (35.0-45.0); Hemoglobin 11.6 g/dL (11.7-15.5); MCH 31.6 pg (27.0-33.0); MCV 96.7 fL (80.0-100.0); RBC 3.67 Million/uL (3.80-5.10); RDW 12.1 % (11.0-15.0)
[2024-01-03 14:38] LABS: IgA 118 mg/dL (47-310); IgG 950 mg/dL (600-1640); IgM 85 mg/dL (50-300)
== END 2023-12-31 15:12 | disposition home or self-care (01) ==
LOC: HO.HMGCX 15:11
PROVIDERS: PCP Nurse Practitioner Family; Visit Provider Nurse Practitioner Family
DX: D64.9 Anemia, unspecified (principal); R59.0 Localized enlarged lymph nodes
CPT/HCPCS: 36415; 76536; 81003; 82306; 82607; 82746; 82784; 83020; 84165; 84439; 84443; 85014; 85018; 85025; 85041; 86334

== ENCOUNTER 2024-01-10 09:10 | Outpatient (REF) | payer OTHER, SELFPAY ==
--- NOTE | ~2024-01-10 | CT_ITS ---
EXAMINATION: CT SOFT TISSUE NECK WITH CONTRAST CLINICAL INFORMATION: Localized enlarged lymph nodes. COMPARISON: Ultrasound of the soft tissues of the head and neck most recent 12/31/2023. TECHNIQUE: Following the intravenous administration of 60 mL of Omnipaque 350 intravenous contrast, helical imaging was performed in the axial plane with generation of coronal and sagittal reformatted images. This CT examination was performed using dose optimization techniques as appropriate, variously including the following: *Automated exposure control *Adjustment of mA and/or kV according to patient size (this includes techniques or standardized protocols for targeted exams where dose is matched to indication/reason for exam; i.e. extremities or head) *Use of iterative reconstruction technique DLP: 182 mGy-cm FINDINGS: There is bilateral diffuse cervical lymphadenopathy. Larger lymph nodes are upper normal in size. Largest lymph node is a right level III lymph node measuring 1.1 cm in short axis axial image 54 series 2. Visualized intracranial structures are normal. The orbits are normal. Visualized paranasal sinuses, mastoid air cells and middle ears are clear. The temporomandibular joints are normal. The nasal and oropharynx are normal. The larynx is normal. The thyroid gland has been removed. The visualized submandibular gland are normal. The visualized proximal esophagus is normal. Vascular structures are normal. Mild emphysematous changes at the lung apices. 6 mm calcified right upper lobe nodule probably representing a calcified granuloma. Bony structures are normal. CT/CT soft tissue neck w IV con IMPRESSION: Diffuse bilateral cervical lymphadenopathy. Larger lymph nodes are upper normal in size. Largest lymph node is a right level III lymph node measuring 1.1 cm in short axis. Post thyroidectomy. Mild paraseptal emphysema. 6 mm calcified right upper lobe nodule probably representing a calcified granuloma.
[2024-01-10] MEDS: iohexoL 350 MG/ML 100 ML INFUS..BTL 60 ML IV (09:42)
== END 2024-01-10 09:11 | disposition home or self-care (01) ==
LOC: HO.CT 09:10
PROVIDERS: PCP Nurse Practitioner Family; Visit Provider Nurse Practitioner Family
DX: R59.0 Localized enlarged lymph nodes (principal)
CPT/HCPCS: 70491; Q9967

== ENCOUNTER 2024-02-20 06:56 | Outpatient (AMB) | payer OTHER, SELFPAY ==
--- NOTE | 2024-02-20 07:27 | MHC.PC.OV ---
Intake Visit Reasons: Discuss imaging and next steps Allergies cephalexin [Keflex] Allergy (Unknown, Verified 12/02/23 09:42) syncope ciprofloxacin [Cipro] Allergy (Unknown, Verified 12/02/23 09:42) dizziness penicillin V Allergy (Unknown, Verified 12/02/23 09:42) Hives Sun Allergy (Unknown, Uncoded 12/02/23 09:42) Hives Tobacco use date assessed: 02/28/23 HPI Discuss imaging and next steps HPI Details Pt noticed an enlarged lymph node in the left side of her neck in early December. US showed redemonstration bilateral cervical lymph nodes. Slight increase in size left left level 1A lymph node. Interval new bilateral lymph nodes, on the right level VA measuring 1.1 cm, on the left level 1A measuring 7 mm. It was recommended that pt have a CT which showed diffuse bilateral cervical lymphadenopathy. Larger lymph nodes are upper normal in size. Largest lymph node is a right level III lymph node measuring 1.1 cm in short axis. Post thyroidectomy. Mild paraseptal emphysema. 6 mm calcified right upper lobe nodule probably representing a calcified granuloma. Pt was referred to ENT who recommended a biopsy. Radiology did not believe pt needs a biopsy, though according to ENT they want a biopsy. Will reach out to radiology. 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 Denies fever, chills, and dizziness. [facility] Medical History Emphysema of lung Breast implant status Cervical lymphadenopathy Vitamin D deficiency Postoperative hypothyroidism Thyroid cancer Nipple discharge Hypothyroidism Graves disease Interstitial cystitis Surgical History History of bladder surgery Hx of bilateral mastectomy History of incision and drainage S/P thyroidectomy (~08/2020) Hx of breast reduction, elective Hx of lumpectomy Hx of knee surgery History of kidney surgery History of partial hysterectomy Family History Mother Graves disease Heart disease Breast cancer Maternal Aunt History of kidney cancer Maternal Aunt History of carcinoma Breast cancer Maternal Grandmother Colon cancer Family/Other Family history of autoimmune disorder Social History Household Members: Family Housing: House Alcohol intake: former Patient Tobacco Use Status: Former Tobacco user Quit Date: 5-6 months ago e-Cigarette/Vaping Use: Currently Using Second Hand Smoke Exposure: No Substance Use Type: Marijuana 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 Demetrio Mustafa, Cathy Boo, Francesco Zaragoza and colleagues, with an educational audrey from [employer]. Review of Systems Const Reports as per HPI Physical exam (Primary Care) Tobacco/Smoking Status: Tobacco use Status Tobacco use date assessed 02/28/23 02/20/24 07:35 Patient Tobacco Use Status Former Tobacco user 02/20/24 07:35 e-Cigarette/Vaping Use Currently Using 02/20/24 07:35 Thrive Assessment: Date of Thrive Assessment Date Thrive assessed 10/16/21 02/20/24 07:35 Const General: cooperative Orientation/consciousness: patient oriented x3 Neuro General: patient oriented x3 Psych Appearance: grossly normal Mental Status: mental status grossly normal Speech and movement: Clear speech present Affect: normal affect Attitude: cooperative Thought process: Normal thought process present Thought content: Normal thought content present Insight: Good insight present (Psych) Judgement: Good judgement present (Psych) Telehealth Telehealth Telehealth Platform: [facility] Location of provider rendering services: practice address Location of patient: address on file Patient Identification confirmed using: Name, : Yes Telehealth method: video Patient verbally consented to treatment: Yes Patient verbally consented to billing insurance company: Yes Patient informed of any privacy concerns related to visit: Yes Minutes spent on Phone/Video with Pt.: 10 Assessment and Plan Assessment & Plan (1) Cervical lymphadenopathy: Code(s): R59.0 - Localized enlarged lymph nodes Plan The patient agreed to the use of a medical physics researcher for this encounter. Scribed for SHANAE Clement by Mary Meier medical physics researcher, on 02/20/2024 at 07:30 EST. Medications: Refilled levothyroxine 100 mcg PO DAILY 90 tabs 3RF Coding Level of Care Code Tele Est Pt Level 3 (77514) Diagnoses Cervical lymphadenopathy R59.0
== END 2024-02-20 09:30 | disposition home or self-care (01) ==
LOC: HO.HMGC 06:56
PROVIDERS: PCP Nurse Practitioner Family; Visit Provider Nurse Practitioner Family
DX: R59.0 Localized enlarged lymph nodes (principal)
CPT/HCPCS: 99213

== ENCOUNTER 2024-05-22 15:35 | Outpatient (REF) | payer OTHER, SELFPAY ==
--- NOTE | ~2024-05-22 | US_ITS ---
EXAMINATION: US SOFT TISSUE HEAD/NECK CLINICAL INFORMATION: Cervical lymphadenopathy. History of total thyroidectomy. COMPARISON: CT soft tissue neck 01/10/2024. Ultrasound soft tissue neck 12/31/2023 and 06/21/2023. TECHNIQUE: Linear transducer grayscale and color Doppler examination of the thyroid bed and surrounding soft tissue. FINDINGS: THYROID BED: Prior thyroidectomy. No residual thyroid tissue demonstrated in the thyroid bed. No cystic or solid nodules demonstrated in the thyroid bed. RIGHT NECK SOFT TISSUES: Bilateral lymph nodes again identified. RIGHT: 1.1 x 0.3 x 0.8 cm right level 5A, previously 1.1 x 0.2 x 0.9 cm abnormal architecture with absence/minimal fatty hilum. 0.8 x 0.2 x 0.4 cm right level 2 and not previously visualized. 3.1 x 0.7 x 1.6 cm right level 2, previously 3.1 x 0.5 x 1.8 cm, abnormal architecture with absence of fatty hilum. 0.8 x 0.4 x 0.7 cm level 1B, previously 0.7 x 0.3 x 0.6 cm. LEFT: 0.4 x 0.2 x 0.4 cm level 1A, previously 0.7 x 0.2 x 0.5 cm. 0.7 x 0.3 x 0.4 cm level 2 and not previously visualized. 0.7 x 0.4 x 0.5 cm level 2, not previously visualized. 1.8 x 0.5 x 1.5 cm level 2, previously 2.1 x 0.5 x 1.3 cm, abnormal-appearing node with absence of fatty hilum. Correlation with biopsy results recommended to determine further management. 0.7 x 0.4 x 0.5 cm level 1B not previously visualized. US/US soft tiss head and/or neck IMPRESSION: Redemonstration of bilateral cervical lymph nodes as detailed above. There are several nodes, which were not previously measured. 3.1 x 0.7 x 1.6 cm right level 2 previously 3.1 x 0.5 x 1.8 cm abnormal architecture with absence of fatty hilum. 1.8 x 0.5 x 1.5 cm left level 2, previously 2.1 x 0.5 x 1.3 cm abnormal appearing node with absence of fatty hilum. Correlation with biopsy results recommended to determine further management. Additional evaluation with CT scan of the soft tissue neck with intravenous contrast could be obtained if clinically indicated. This study was presented today June 10, 2024 for interpretation. Stat results provided at this time as requested by referring provider. Electronically signed by: Ana Najera MD 06/10/2024 01:54 PM EDT RP
== END 2024-05-22 15:36 | disposition home or self-care (01) ==
LOC: HO.HMGCX 15:35
PROVIDERS: PCP Nurse Practitioner Family; Visit Provider Nurse Practitioner Family
DX: R90.0 Intracranial space-occupying lesion found on diagnostic imaging of central nervous system (principal)
CPT/HCPCS: 76536

== ENCOUNTER 2024-05-25 12:07 | Outpatient (REF) | payer OTHER, SELFPAY ==
[2024-05-25 13:12] LABS: MANUAL DIFF FLAG NO
[2024-05-25 13:23] LABS: Basophils Absolute Auto 0.1 X10*3/uL (0.0-0.2); Basophils Percent Auto 1.2 % (0-2); Eosinophils Absolute Auto 0.1 X10*3/uL (0.0-0.4); Eosinophils Percent Auto 1.8 % (0-4); Hematocrit 36.8 % (37.0-47.0); Hemoglobin 12.1 g/dl (12.0-16.0); Imm Gran Abs Auto 0.05 X10*3/uL (0.00-0.03); Imm Gran Pct Auto 0.6 % (0.0-0.4); Lymphocytes Absolute Auto 2.6 X10*3/uL (1.2-4.9); Lymphocytes Percent Auto 32.7 % (20-40); Mean Corpuscular HGB Conc 32.9 g/dl (31.0-35.0); Mean Corpuscular Hemoglobin 32.2 pg (27.0-33.0); Mean Corpuscular Volume 97.9 fL (80.0-98.0); Mean Platelet Volume 9.7 fL (9.4-12.3); Monocytes Absolute Auto 0.6 X10*3/uL (0.1-1.2); Monocytes Percent Auto 8.2 % (2-11); Neutrophils Absolute Auto 4.3 x10*3/uL (2.0-8.3); Neutrophils Percent Auto 55.5 % (45-73); Platelet Count 389 X10*3/uL (160-400); Red Blood Count 3.76 X10*6/uL (4.20-5.50); Red Cell Distribution Width 12.3 % (11.0-16.0); White Blood Count 7.8 X10*3/uL (4.8-10.8)
[2024-05-25 13:45] LABS: Alanine Aminotransferase 8 U/L (0-31); Alkaline Phosphatase 46 U/L (39-117); Anion Gap 10 (12-20); Aspartate Amino Transferase 12 U/L (5-31); Bilirubin Total 0.2 mg/dL (0.0-1.0); Blood Urea Nitrogen 16 mg/dL (9-16); Calcium 9.2 mg/dL (8.4-10.2); Carbon Dioxide 28 mmol/L (22-29); Chloride 109 mmol/L (96-108); Estimated Glomerular Filt Rate > 60; Glucose Random 88 mg/dL (60-115); Potassium 4.1 mmol/L (3.3-5.1); Sodium 143 mmol/L (135-145); Total Protein 6.5 g/dL (6.5-8.0)
[2024-05-25 13:51] LABS: TSH reflex Free T4 0.68 uIU/mL (0.32-4.0)
== END 2024-05-25 12:08 | disposition home or self-care (01) ==
LOC: HO.HMGCLDS 12:07
PROVIDERS: PCP Nurse Practitioner Family; Visit Provider Nurse Practitioner Family
DX: E03.9 Hypothyroidism, unspecified (principal)
CPT/HCPCS: 36415; 80053; 84443; 85025

== ENCOUNTER → 2024-05-27 14:23 | Outpatient (RCR) | payer OTHER, SELFPAY ==
[2020-10-24 08:15] VITALS: BP 120/68; PULSE 65; RESP 14; TEMP 36.2; O2SAT 98; BMI 27.1
--- NOTE | 2020-10-24 08:51 | PM.HEMONCCN ---
Subjective - Subjective Chief complaint: For family history of breast cancer Patient: new to practice Consult date: 10/24/20 Primary Care Provider: SHANAE Schaffer HPI - Consult Narrative Reason for consult: Family history of breast cancer Narrative: Sherrie Figueroa is a 39 year old female referred for evaluation of genetic counseling and possible chemoprophylaxis for increased personal risk of breast cancer. She had undergone bilateral reduction mammoplasty many years ago and had previously nipple piercings which might have caused infection of her nipple/areolar region. She states that she has had infection/abscesses of both her breasts for many years. She was never diagnosed with breast cancer but she underwent thyroidectomy for Graves disease in August and incidentally found to have tumor/thyroid cancer. Her mother was treated for breast cancer and 4 of her maternal aunts have had cancer. She was age 21 at the time of her 1st . She has never used control pills. She underwent hysterectomy several years ago for precancerous lesion of her cervix. Recent breast imaging with mammogram/ultrasound. She is currently being treated for bilateral breast abscesses and has drains in place. Review of Systems - Constitutional Reports as per HPI, Reports no additional constitutional complaints - Cardiovascular Reports no additional cardiovascular complaints - Respiratory Reports no additional respiratory complaints - Gastrointestinal Reports no additional gastrointestinal complaints Oncology Screenings - ECOG Performance Status ECOG Performance Status: 1 [facility] Medical History: Medical History (Last Updated 10/19/20 @ 12:37 by Yakelin Fox) Graves disease Hypothyroidism Interstitial cystitis Nipple discharge Family History: Family History (Last Updated 10/24/20 @ 08:19 by Sofie Patel) Mother Graves disease Heart disease Breast cancer Maternal Aunt History of kidney cancer Maternal Aunt History of carcinoma Breast cancer Maternal Grandmother Colon cancer Surgical History: Surgical History (Last Updated 10/19/20 @ 12:37 by Yakelin Fox) History of kidney surgery History of partial hysterectomy Hx of breast reduction, elective Hx of knee surgery Hx of lumpectomy S/P thyroidectomy Onset Date: ~08/2020 Social History: Social History (Last Updated 10/24/20 @ 08:20 by Sofie Patel) Alcohol History: Alcohol intake: former Alcohol History Details: Alcohol intake frequency: does not drink Tobacco History: Smoking Status: Current every day smoker Substance Use History: Use of substances other than those prescribed or required for medical reasons: Yes Substance Use Type: Marijuana Smoking status: Current every day smoker Home Medications and Allergies Home Medications Medication Instructions Recorded Confirmed Type diazepam 10 mg tablet 10 mg VAGINAL DAILY 10/06/20 10/24/20 History hydroxyzine HCl 50 mg tablet 50 mg PO BEDTIME 10/06/20 10/24/20 History Allergies Allergy/AdvReac Type Severity Reaction Status Date / Time cephalexin [Keflex] Allergy Unknown syncope Verified 05/19/20 00:00 ciprofloxacin [Cipro] Allergy Unknown dizziness Verified 05/19/20 00:00 penicillin V Allergy Unknown Hives Verified 10/20/20 09:12 Sun Allergy Unknown Hives Uncoded 04/28/19 00:00 Physical Exam Vital signs: Vital Signs Temp 97.2 F 10/24/20 08:15 Pulse 65 10/24/20 08:15 Resp 14 10/24/20 08:15 BP 120/68 10/24/20 08:15 Pulse Ox 98 10/24/20 08:15 Intake & Output 10/23/20 10/24/20 10/24/20 18:59 06:59 18:59 Other: Weight 67.2 kg Weight 67.2 kg - Constitutional Present: mild distress - Routine HEENT Exam Head: Present: normal inspection Eye: Present: EOMI - Routine Neck Exam Absent: lymphadenopathy - Routine Chest/Breast/Axilla Exam Breast: Present: tenderness, swelling, erythema - Routine Respiratory Exam Present: CTAB - Routine Cardiovascular Exam Cardiovascular: Present: S1, S2 - Routine Abdominal Exam Present: soft. Absent: tenderness - Routine Extremities Exam Absent: pedal edema - Routine Skin Exam Present: intact - Routine Neurological Exam Present: oriented X3 Assessment and Plan (1) Family hx-breast malignancy Status: Chronic 1. This is a 39-year-old premenopausal woman with extensive family history of breast and other cancers. Her mother was diagnosed with triple negative breast cancer around the age of 60. Two maternal aunts with breast cancer and 1 maternal aunt with kidney cancer. Patient states that she was diagnosed with papillary thyroid cancer incidentally at thyroidectomy for Graves disease. Based on Shikha model of breast cancer risk assessment, her personal risk of breast cancer is 1.5% for the next 5 years and 22.2% lifetime risk of developing breast cancer. Based on the MELIDA breast cancer risk calculator, her risk is slightly higher at 3.2% for next 5 years and lifetime risk is 22.9%. I briefly discussed tamoxifen for chemoprevention. At this time she would like to proceed with genetic counseling and testing for inherited breast/ovarian cancer syndromes. Based on those results, she will decide about chemoprophylaxis. She had a telephone interview with genetic counselor today. A blood sample was sent for testing. She has been made aware that the test will be performed only after getting insurance prior authorization. She will be seen in 6 weeks to discuss results.
--- NOTE | 2020-10-24 09:49 | MHC.HEMONCMA ---
Patient came in for a consult because of her family history of breast cancer, she currently has issues with her breasts due to abbesses and nipple drainage. Patients chart was reviewed, medications, allergies and medical/family history gone through to make sure it was accurate. Dr Garza wanted patient to have genetic testing done, I set patient up with the video, had her give her blood sample and sign all documents needed. Dr Garza signed and the sample was placed in outgoing mail. We will call the patient back in for a follow up to discuss her results when they come in. Patient agrees with the plan.
== END | disposition home or self-care (01) ==
LOC: HO.ONC 10-24 08:00
PROVIDERS: PCP Nurse Practitioner Family; Referring Provider Nurse Practitioner Family; Visit Provider Internal Medicine
DX: Z85.850 Personal history of malignant neoplasm of thyroid (principal); Z90.710 Acquired absence of both cervix and uterus; Z80.3 Family history of malignant neoplasm of breast
CPT/HCPCS: 99204

== ENCOUNTER 2024-06-11 13:18 | Outpatient (REF) | payer OTHER, SELFPAY ==
[2024-06-11 16:05] LABS: MANUAL DIFF FLAG NO
[2024-06-11 16:24] LABS: Basophils Absolute Auto 0.1 X10*3/uL (0.0-0.2); Eosinophils Absolute Auto 0.1 X10*3/uL (0.0-0.4); Eosinophils Percent Auto 1.5 % (0-4); Hematocrit 35.2 % (37.0-47.0); Hemoglobin 11.5 g/dl (12.0-16.0); Imm Gran Abs Auto 0.04 X10*3/uL (0.00-0.03); Imm Gran Pct Auto 0.4 % (0.0-0.4); Lymphocytes Absolute Auto 2.2 X10*3/uL (1.2-4.9); Lymphocytes Percent Auto 24.3 % (20-40); Mean Corpuscular HGB Conc 32.7 g/dl (31.0-35.0); Mean Corpuscular Hemoglobin 32.8 pg (27.0-33.0); Mean Corpuscular Volume 100.3 fL (80.0-98.0); Mean Platelet Volume 9.8 fL (9.4-12.3); Monocytes Absolute Auto 0.5 X10*3/uL (0.1-1.2); Monocytes Percent Auto 5.7 % (2-11); Neutrophils Absolute Auto 6.1 x10*3/uL (2.0-8.3); Neutrophils Percent Auto 67.1 % (45-73); Platelet Count 360 X10*3/uL (160-400); Red Blood Count 3.51 X10*6/uL (4.20-5.50); Red Cell Distribution Width 13.2 % (11.0-16.0); White Blood Count 9.2 X10*3/uL (4.8-10.8)
[2024-06-11 16:37] LABS: Alanine Aminotransferase 12 U/L (0-31); Albumin Level 4.1 g/dL (3.5-5.0); Alkaline Phosphatase 43 U/L (39-117); Anion Gap 13 (12-20); Aspartate Amino Transferase 15 U/L (5-31); Bilirubin Total 0.2 mg/dL (0.0-1.0); Blood Urea Nitrogen 14 mg/dL (9-16); Calcium 9.2 mg/dL (8.4-10.2); Carbon Dioxide 26 mmol/L (22-29); Chloride 105 mmol/L (96-108); Estimated Glomerular Filt Rate > 60; Glucose Random 75 mg/dL (60-115); Lactate Dehydrogenase 247 U/L (122-220); Potassium 4.2 mmol/L (3.3-5.1); Sodium 140 mmol/L (135-145); Total Protein 6.6 g/dL (6.5-8.0)
[2024-06-12 21:33] LABS: IgA 123 mg/dL (47-310); IgG 905 mg/dL (600-1640); IgM 73 mg/dL (50-300)
[2024-06-15 17:10] LABS: Hematocrit 34.6 % (35.0-45.0); Hemoglobin 11.4 g/dL (11.7-15.5); MCH 33.1 pg (27.0-33.0); MCV 100.6 fL (80.0-100.0); RBC 3.44 Million/uL (3.80-5.10); RDW 12.1 % (11.0-15.0)
== END 2024-06-11 13:19 | disposition home or self-care (01) ==
LOC: HO.HMGCLDS 13:18
PROVIDERS: PCP Nurse Practitioner Family; Visit Provider Nurse Practitioner Family
DX: M25.50 Pain in unspecified joint (principal); D72.829 Elevated white blood cell count, unspecified
CPT/HCPCS: 36415; 80053; 82784; 83020; 83615; 84550; 85014; 85018; 85025; 85041; 86334

== ENCOUNTER 2024-06-25 07:57 | Outpatient (AMB) | payer OTHER, SELFPAY ==
--- NOTE | 2024-06-25 07:02 | A.OFFPC_ITS ---
Intake Visit Reasons: Discuss biopsy options Allergies cephalexin [Keflex] Allergy (Unknown, Verified 12/02/23 09:42) syncope ciprofloxacin [Cipro] Allergy (Unknown, Verified 12/02/23 09:42) dizziness penicillin V Allergy (Unknown, Verified 12/02/23 09:42) Hives Sun Allergy (Unknown, Uncoded 12/02/23 09:42) Hives Medication List - Last Reconciled 06/25/24 by SHANAE Andrews diazepam 10 mg vaginal DAILY PRN diclofenac sodium 50 mg PO Q12H PRN 30 days gabapentin 300 mg PO .4 x a day 30 days levothyroxine 100 mcg PO DAILY levothyroxine 88 mcg PO DAILY tizanidine 4 mg PO BID PRN Tobacco use date assessed: 02/28/23 HPI Discuss biopsy options HPI Details cervical lymphadenopathy: Pt is seeing ENT. It was recommended that she have a biopsy. She is waiting for this to be scheduled. Pt describes right cervical lymphadenopathy and left posterior cervical lyphadenopathy. Pt was seeing hematology/oncology due to high risk of breast cancer previously. Will refer back to hematology/oncology for consult for anemia high risk carcinoma. Pt further requested seeing hematology/oncology. Will cont to follow labs. Denies fever, dizziness, and N/V. She does report chills, i'm always cold . Currently watching tsh levels as well. [facility] Medical History Emphysema of lung Breast implant status Cervical lymphadenopathy Vitamin D deficiency Postoperative hypothyroidism Thyroid cancer Nipple discharge Hypothyroidism Graves disease Interstitial cystitis Surgical History History of bladder surgery Hx of bilateral mastectomy History of incision and drainage S/P thyroidectomy (~08/2020) Hx of breast reduction, elective Hx of lumpectomy Hx of knee surgery History of kidney surgery History of partial hysterectomy Family History Mother Graves disease Heart disease Breast cancer Maternal Aunt History of kidney cancer Maternal Aunt History of carcinoma Breast cancer Maternal Grandmother Colon cancer Family/Other Family history of autoimmune disorder Social History Household Members: Family Housing: House Alcohol intake: former Patient Tobacco Use Status: Former Tobacco user e-Cigarette/Vaping Use: Currently Using Second Hand Smoke Exposure: No Substance Use Type: Marijuana Current occupational status: employed 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 occupational exposures/hazards: Yes Cognitive needs: No Hearing needs: No Vision needs: No Questionnaire Thrive Questionnaire Date Thrive assessed: 10/16/21 What is your living situation today?: I have a steady place to live Within the past 12 months, did the food you bought not last and you didn't have the money to get more?: Never true Within the past 12 months, did you worry whether your food would run out before you got money to buy more?: Never true Do you have trouble paying for medicines?: No Do you have trouble getting transportation to medical appointments?: No Do you have trouble paying your heating and electricity bill?: No Do you have trouble taking care of your child, family member or friend?: No Do you have trouble with day-to-day activities such as bathing, preparing meals, shopping, managing finances, etc.?: No Are you currently unemployed and looking for a job?: Yes Are you interested in more education?: No Please select the resources that you would like help with: None Currently or been in a relationship where the following occur: No concerns reported THRIVE Score: 0 BLESSING-7 AMB Questionnaire BLESSING-7 Date BLESSING - 7 assessed: 10/16/21 Source: Developed by Drs. Demetrio Mustafa, Cathy Boo, Francesco Zaragoza and colleagues, with an educational audrey from [employer]. Review of Systems Const Reports as per HPI Physical exam (Primary Care) Tobacco/Smoking Status: Tobacco use Status Tobacco use date assessed 02/28/23 06/25/24 07:05 Patient Tobacco Use Status Former Tobacco user 06/25/24 07:05 e-Cigarette/Vaping Use Currently Using 06/25/24 07:05 Thrive Assessment: Date of Thrive Assessment Date Thrive assessed 10/16/21 06/25/24 07:05 Currently or been in a relationship where the following occur: No concerns reported Const General: cooperative Orientation/consciousness: patient oriented x3 Neuro General: patient oriented x3 Psych Appearance: grossly normal Mental Status: mental status grossly normal Speech and movement: Clear speech present Affect: normal affect Attitude: cooperative Thought process: Normal thought process present Thought content: Normal thought content present Insight: Good insight present (Psych) Judgement: Good judgement present (Psych) Telehealth Telehealth Telehealth Platform: [employer] Location of provider rendering services: practice address Location of patient: address on file Patient Identification confirmed using: Name, : Yes Telehealth method: video Patient verbally consented to treatment: Yes Patient verbally consented to billing insurance company: Yes Patient informed of any privacy concerns related to visit: Yes Minutes spent on Phone/Video with Pt.: 15 Assessment and Plan Assessment & Plan (1) Cervical lymphadenopathy: Code(s): R59.0 - Localized enlarged lymph nodes Plan: Referred to hematology/oncology, seeing ENT, awaiting biopsy date. Pt will contact me via portal if she doesn't hear of a date and time within the next 2 weeks (2) Anemia: Code(s): D64.9 - Anemia, unspecified Plan: Labs ordered, will cont to monitor, referral to oncology/hematology placed as requested Plan The patient agreed to the use of a medical support specialist for this encounter. Scribed for LORETO Clement-HOA by Mary Meier medical support specialist, on 06/25/2024 at 07:00 EST. Orders: Orders Complete Blood Count Auto Diff Today R59.0 - Localized enlarged lymph nodes Vitamin B12 and Folate Today R59.0 - Localized enlarged lymph nodes Ferritin Today D64.9 - Anemia, unspecified, R59.0 - Localized enlarged lymph nodes IRON PROFILE Today D64.9 - Anemia, unspecified, R59.0 - Localized enlarged lymph nodes Reticulocyte Count Today D64.9 - Anemia, unspecified, R59.0 - Localized enlarged lymph nodes Referrals Hematology & Oncology Referral D64.9 - Anemia, unspecified, R59.0 - Localized enlarged lymph nodes Coding Level of Care Code Tele Est Pt Level 3 (08120) Diagnoses Cervical lymphadenopathy R59.0 Anemia D64.9
== END 2024-06-25 12:48 | disposition home or self-care (01) ==
LOC: HO.HMCC 07:57
PROVIDERS: PCP Nurse Practitioner Family; Visit Provider Nurse Practitioner Family
DX: R59.0 Localized enlarged lymph nodes (principal); D64.9 Anemia, unspecified

== ENCOUNTER → 2024-06-25 07:57 | Outpatient (BNVA) | payer OTHER, SELFPAY | PROVIDERS: PCP Nurse Practitioner Family; Visit Provider Nurse Practitioner Family | DX: R59.0 Localized enlarged lymph nodes (principal); D64.9 Anemia, unspecified ==

== ENCOUNTER 2024-07-01 13:45 | Outpatient (REF) | payer OTHER, SELFPAY ==
[2024-07-01 16:02] LABS: MANUAL DIFF FLAG NO
[2024-07-01 16:31] LABS: Basophils Absolute Auto 0.1 X10*3/uL (0.0-0.2); Eosinophils Absolute Auto 0.2 X10*3/uL (0.0-0.4); Eosinophils Percent Auto 1.9 % (0-4); Hemoglobin 11.8 g/dl (12.0-16.0); Imm Gran Abs Auto 0.03 X10*3/uL (0.00-0.03); Imm Gran Pct Auto 0.4 % (0.0-0.4); Immature Retic Fraction 4.1 % (3.0-15.9); Lymphocytes Absolute Auto 2.4 X10*3/uL (1.2-4.9); Lymphocytes Percent Auto 30.5 % (20-40); Mean Corpuscular HGB Conc 32.8 g/dl (31.0-35.0); Mean Corpuscular Hemoglobin 32.8 pg (27.0-33.0); Mean Platelet Volume 10.3 fL (9.4-12.3); Monocytes Absolute Auto 0.6 X10*3/uL (0.1-1.2); Neutrophils Absolute Auto 4.7 x10*3/uL (2.0-8.3); Neutrophils Percent Auto 59.2 % (45-73); Platelet Count 307 X10*3/uL (160-400); Red Cell Distribution Width 12.6 % (11.0-16.0); Retic HGB Equivalent 35.4 pg (30.0-35.0); Reticulocytes Absolute 0.037 X10*6/uL (0.026-0.095); White Blood Count 7.9 X10*3/uL (4.8-10.8)
[2024-07-01 16:37] LABS: Iron 115 mcg/dL (30-160); Percent Iron Saturation 38 % (15-50); Total Iron Binding Capacity 305 mcg/dL (228-428); Unsaturated Iron Binding 190 ug/dL
[2024-07-01 16:42] LABS: Ferritin 62 ng/mL (10-250)
[2024-07-01 16:56] LABS: Folate 7.6 ng/mL (> or = 4.0); Vitamin B12 275 pg/mL (200-900)
== END 2024-07-01 13:46 | disposition home or self-care (01) ==
LOC: HO.HMGCLDS 13:45
PROVIDERS: PCP Nurse Practitioner Family; Visit Provider Nurse Practitioner Family
DX: R59.0 Localized enlarged lymph nodes (principal); D64.9 Anemia, unspecified
CPT/HCPCS: 36415; 82607; 82728; 82746; 83540; 85025; 85045

== ENCOUNTER 2024-07-17 10:48 | Outpatient (REF) | payer OTHER, SELFPAY ==
--- NOTE | ~2024-07-17 | US_ITS ---
Ultrasound-guided right cervical lymph node fine-needle aspiration Indication: History of micropapillary thyroid cancer. Persistent bilateral cervical adenopathy Procedure: Informed consent was obtained from the patient prior to the procedure. During this process, the procedure and potential alternatives were explained, along with the intended outcome and benefits. The risks of the procedure, as well as the risks of not doing the procedure, were discussed. The patient was given the opportunity to ask questions regarding the procedure and appeared competent to make medical decisions. A signed consent form which documents this discussion was placed in the medical record. A timeout was performed in the room. The patient was placed in a supine position with the neck extended. The right side of the neck and chest was prepped and draped in routine sterile fashion. 1% lidocaine was used as anesthetic. Under real-time ultrasound guidance, a 25-gauge hypodermic needle was placed into the right cervical lymph node and aspiration was performed. A total of 3 aspirations were performed. The specimens were placed in CytoLyt and RPMI. Postprocedure images showed no hematoma. A Band-Aid was applied to the access site. The patient tolerated the procedure well with no immediate complications. Permanent ultrasound images were archived to the procedure. US/US guided fine needle asp Impression: Ultrasound-guided right cervical lymph node fine-needle aspiration This procedure was performed by Steve Hester PA-C, and directly supervised by Dr. Smith Electronically signed by: Alberto Sharma MD 07/27/2024 02:33 PM EDT
[2024-07-17] MEDS: Lidocaine HCl 1 % MPF 5 ML VIAL SUBCUT (12:07)
== END 2024-07-17 10:49 | disposition home or self-care (01) ==
LOC: HO.US 10:48
PROVIDERS: Pathology Anatomic Pathology & Clinical Pathology; PCP Nurse Practitioner Family; Visit Provider Otolaryngology
DX: R59.0 Localized enlarged lymph nodes (principal); E89.0 Postprocedural hypothyroidism; Z85.850 Personal history of malignant neoplasm of thyroid
CPT/HCPCS: 10005; 36415; 88173; 88184; 88185; 88300; J2003

== ENCOUNTER → 2024-07-17 10:50 | Outpatient (BNV) | payer OTHER, SELFPAY | PROVIDERS: PCP Nurse Practitioner Family; Visit Provider Physician Assistant Surgical | DX: R59.0 Localized enlarged lymph nodes (principal); Z85.850 Personal history of malignant neoplasm of thyroid | CPT/HCPCS: 10005 ==

== ENCOUNTER → 2024-08-18 15:24 | Outpatient (BNV) | payer OTHER, SELFPAY | PROVIDERS: PCP Nurse Practitioner Family; Referring Provider Nurse Practitioner Family; Visit Provider Internal Medicine | DX: D64.9 Anemia, unspecified (principal); Z85.850 Personal history of malignant neoplasm of thyroid; Z80.3 Family history of malignant neoplasm of breast | CPT/HCPCS: 99204 ==

== ENCOUNTER 2024-11-18 13:30 | Outpatient (REF) | payer OTHER, SELFPAY ==
--- OUTSIDE RECORDS SUMMARY | 2024-11-18 13:56 | XMS_ITS | Clinical Summary ---
Author Organization [facility] Address [phone] Formerly [facility] [place] [address] Care Team Providers Care Nut Tapper Name Role Phone Bryanna Norris MD Primary Care Provider [phone] Allergies Active Allergy Reactions Criticality Noted Date Comments Ibuprofen Other (See Comments) 03/21/2018 Kidney disease Penicillins 03/14/2018 Medications Medication Sig Dispensed Refills Start Date End Date Status butalbital-acetaminophe n-caff 50-300-40 mg Cap TK 1 C PO BID PRN 0 02/21/2018 Active diazePAM (VALIUM) 10 MG tablet TK 1 T PO QD 4 02/16/2018 Active tiZANidine (ZANAFLEX) 4 MG tablet TK 1 T PO BID PRN 0 03/17/2018 Active methocarbamol (ROBAXIN) 750 MG tablet TK 1 T PO BID PRN 0 01/04/2019 Acti ve CHANTIX STARTING MONTH BOX 0.5 mg (11)- 1 mg (42) tablet 11/13/2018 Active citalopram (CELEXA) 40 MG tablet TK 1 T PO QD 4 03/09/2019 Active ciprofloxacin HCl (CIPRO ORAL) Take by mouth. Active Active Problems No known active problems Social History Tobacco Use Types Packs/Day Years Used Date Smoking Tobacco: Every Day Smokeless Tobacco: Never Alcohol Use Standard Drinks/Week Comments No 0 (1 standard drink = 0.6 oz pur e alcohol) Education Answer Date Recorded Are you interested in more education? Not on elizabet e 01/25/2023 Are you concerned about learning? Not on file 01/25/2023 No 01/25/2023 No 01/25/2023 Digital Access Answer Date Recorded No 02/22/2023 No 02/22/2023 No 02/22/2023 Reliable internet access at home? Not on file 02/22/2023 Device with a working camera? Not on file Sex and Gender Information Value Date Recorded Sex Assigned at Female 01/20/2019 11:06 PM EDT Gender Identity Female 01/20/2019 11:06 PM EDT Sexual Orientation Bisexual 01/20/2019 11 :06 PM EDT Last Filed Vital Signs Vital Sign Reading Time Taken Comments Blood Pressure 160/91 04/23/2019 9:41 AM EDT Pulse 70 04/23/2019 9:41 AM EDT Temperature 36.5 ??C (97.7 ??F) 04/23/2019 9:41 AM ED T Respiratory Rate 18 04/23/2019 9:41 AM EDT Oxygen Saturation 100% 04/23/2019 9:41 AM EDT Inhaled Oxygen Concentration - - Weight 48.1 kg (106 lb) 04/23/2019 9:41 AM EDT Height 160 cm (5' 3 ) 04/23/2019 9:41 AM EDT Body Mass Index 18.78 04/23/2019 9:41 AM EDT Plan of Treatment Health Maintenance Due Date Last Done Comments DEPRESSION SCREENING 1992 SMOKING Hx and SMOKELESS TOBACCO SCREENING 1993 HEPATITIS B SCREENING 1998 HEPATITIS C SCREENING 1998 HIV ONE-TIME SCREENING (18-6 5 YEARS) 1998 PNEUMOCOCCAL VACCINES (0-49 years) (1 of 2 - PCV) 1999 PAP SMEAR 2001 MAMMOGRAM 2020 INFLUENZA VACCINE (#1) 2024 COVID-19 VACCINE (2 - 2023-2 5 season) 2024 08/22/2021 Adult Td,Tdap Booster 06/19/2026 06/19/2016 , 12/08/2012 HEPATITIS B VACCINES Completed 03/08/2017, 09/28/2016, 08/29/2016 HEPATITIS A VACCINES Aged Out No long er eligible based on patient's age to complete this topic HIB VACCINES Aged Out No longer eligi ble based on patient's age to complete this topic MENINGOCOCCAL VACCINES (ACWY) Aged Out No longer eligible based on patient's age to complete this topic Medical Devices Not on file Care Teams Nut Tapper Relationship Specialty Start Date End Date Bryanna Norris MD [address] [place] [id number] PCP - General Internal Medicine 04/23/19 Additional Source Comments The information contained in this document represents components of the legal health record. It is not the complete legal health record.[facility]
--- OUTSIDE RECORDS SUMMARY | 2024-11-18 13:56 | XMS_ITS | Clinical Summary ---
Author Organization [facility] [employer] [facility] Address [address] [facility] [place] [address] Care Team Providers Care Clinical Resource Director Name Role Phone Pcp, No Primary Care Provider [phone] Social History Tobacco Use Types Packs/Day Years Used Date Smoking Tobacco: Never Assessed Comments Unknown Sex and Gender Information Value Date Recorded Sex Assigned at Not on file Legal Sex Female 6:43 PM EDT Gender Identity Not on file Sexual Orientation Not on file Plan of Treatment Health Maintenance Due Date Last Done Comments Depression: Screening Annual ly using PHQ-2/9 in Adults 18 yrs or above (or HM Modifier)([facility]) 1998 Hepatitis C Virus Infection in Adolescents and Adults: Screening (or Modifier) ([facility]) 1998 [facility] Screening Reminder: Char de la o for all adults ([facility]) 1998 Tobacco Smoking Cessation: i n Adults excluding Women: Behavioral and Pharmacotherapy Interventions ([facility]) 1998 DTaP/Tdap/Td Vaccines ([facility]) (1 - Tdap) 1999 Lipid Screening: Once for Wo men aged 20 to 45 yrs ([facility]) 2000 Cervical Cancer Screenin 1-65 yrs of age (or Modifier) 2001 Cervical Cancer Screening: P ap every 3 yrs pts age 21-65 2001 Cervical Cancer: Pap Screeni ng with Modifier timing ([facility]) 2001 Cervical Cancer: hrHPV alone or with cotesting Pap for Pts 30-65yrs screening every 5yrs ([facility]) 2001 Flu Vaccination: Yearly for ages 18mos through 64 years (or Modifier)([facility]) 04/30/2024 COVID-19 Vaccine Screening: Initial Series and Booster Status ([facility]) (2023- season) 2024 Zoster/Shingles Vaccine Seri es Screening: Adults aged 18+ yrs (or HM Modifiers)([facility]) (1 of 2) 2030 Pneumococcal Vaccination Scr eening: Pts 0-19 & 19-64 yrs of age ([facility]) Aged Out No longer eligible based on patient's age to complete this topic Medical Devices Not on file Insurance [place] [address] Care Teams Clinical Resource Director Relationship Specialty Start Date End Date Pcp, No PCP - General Family Medicine 12/16/20
--- OUTSIDE RECORDS SUMMARY | 2024-11-18 13:56 | XMS_ITS | Clinical Summary ---
Author Organization [facility] Address [address] [place] [address] Care Team Providers Care Sales Service Professional Name Role Phone Chuy Petty NP Primary Care Provider Social History Tobacco Use Types Packs/Day Years Used Date Smoking Tobacco: Never Assessed Comments Unknown Sex and Gender Information Value Date Recorded Sex Assigned at Not on file Legal Sex Female 10:29 AM EST Gender Identity Not on file Sexual Orientation Not on file Plan of Treatment Health Maintenance Due Date Last Done Comments Breast Cancer Screening 1980 DTaP,Tdap,and Td Vaccines (1 - Tdap) 1999 Hepatitis B Vaccines (1 of 3 - 19+ 3-dose series) 1999 Cervical Cancer Screening: P ap Smear 2001 Depression Screening 08/28/2022 HIV Screening 08/28/2022 Hepatitis C Screening 08/28/2022 Social Influencers of Health Screening 08/28/2022 COVID-19 Vaccine ( - 2023-2 5 season) 2024 Influenza Vaccine (#1) 2024 HIB Vaccines Aged Out No longer eligi ble based on patient's age to complete this topic HPV Vaccines Aged Out No longer eligi ble based on patient's age to complete this topic Hepatitis A Vaccines Aged Out No long er eligible based on patient's age to complete this topic IPV Vaccines Aged Out No longer eligi ble based on patient's age to complete this topic MMR Vaccines Aged Out No longer eligi ble based on patient's age to complete this topic Meningococcal ACWY Vaccine Aged Out N o longer eligible based on patient's age to complete this topic Meningococcal B Vacine Aged Out No lo nger eligible based on patient's age to complete this topic Pneumococcal Vaccine: Pediat rics (0 to 5 Years) and At-Risk Patients (6 to 64 Years) Aged Out No longer eligible b ased on patient's age to complete this topic RSV Immunization Patients Un julianne 20 months Aged Out No longer eligible b ased on patient's age to complete this topic Varicella Vaccines Aged Out No longer eligible based on patient's age to complete this topic Care Teams Sales Service Professional Relationship Specialty Start Date End Date Chuy Petty NP [address] [facility] [place], [place] PCP - General Family Medicine 09/16/17
[2024-11-18 17:05] LABS: TSH reflex Free T4 2.47 uIU/mL (0.32-4.0)
[2024-11-19 03:05] LABS: CT PCR NOT DETECTED (Not Detect.); NG PCR NOT DETECTED (Not Detect.)
[2024-11-19 08:02] LABS: Syphilis Screen Nonreactive (Nonreactive)
[2024-11-19 08:16] LABS: HBS Num1 82.62 mIU/mL (0-7.99); HBc Num1 0.07 S/CO (0.00-0.79); HIV AB/AG Nonreactive (Nonreactive); HIV Num 1 0.06 S/CO (0.00-0.99); Hepatitis B Core Antibody Nonreactive (Nonreactive); Hepatitis B Surface Antigen Negative (Negative); ~HepC Num1 0.04 S/CO (0.00-0.79); ~Hepatitis B Surface Antibody REACTIVE (Nonreactive); ~Hepatitis C Antibody Nonreactive (Nonreactive)
== END 2024-11-18 13:31 | disposition home or self-care (01) ==
LOC: HO.HMGCLDS 13:30
PROVIDERS: PCP Nurse Practitioner Family; Visit Provider Internal Medicine
DX: Z11.3 Encounter for screening for infections with a predominantly sexual mode of transmission (principal); E03.9 Hypothyroidism, unspecified
CPT/HCPCS: 36415; 84443; 86704; 86706; 86780; 86803; 87340; 87389; 87491; 87591

== ENCOUNTER 2025-03-05 11:04 | Outpatient (AMB) | payer MEDICAID, SELFPAY ==
--- NOTE | 2025-03-05 11:07 | A.OFFVIS_ITS ---
Vital Signs 3 03/05/25 11:18 Height 5 ft 2 in Weight 105 lb BMI 19.2 BP 173/104 H Blood Pressure Location Lt brachial Position Sitting Pulse 84 Intake Visit Reasons: Bilateral cervical lymphadenopathy Intake Note: Patient is seen in office for evaluation of Bilateral cervical lymphadenopathy. Pt c/o: per pt all the lymph nodes are inflamed, getting lumps all over the skin, difficult breathing, tired, not feeling well, nausea, vomit, diarrhea, constipation, night sweats, onset of symptoms couple of months Manager Labor Relations Required: No Accompanied by: Family/Other Allergies cephalexin [Keflex] Allergy (Unknown, Verified 03/05/25 11:19) syncope ciprofloxacin [Cipro] Allergy (Unknown, Verified 03/05/25 11:19) dizziness penicillin V Allergy (Unknown, Verified 03/05/25 11:19) Hives Sun Allergy (Unknown, Uncoded 03/05/25 11:19) Hives Medication List - Last Reconciled 03/05/25 by Chuy Velazquez MD cyanocobalamin (vitamin B-12) (Vitamin B-12) 1,000 mcg PO DAILY diazepam 10 mg vaginal DAILY PRN diclofenac sodium 50 mg PO Q12H PRN 30 days gabapentin 300 mg PO .4 x a day 30 days levothyroxine 88 mcg PO DAILY levothyroxine 100 mcg PO DAILY ofloxacin 0.3% (Ocuflox) put 1-2 drps into affected eye(s) every 2-4 h x 2 days, then 1-2 drps 4 times/day days 3-7 ophthalmic (eye) tizanidine 4 mg PO BID PRN HPI Comments Details: 44-year-old female patient presenting for evaluation of bilateral cervical lymphadenopathy. She presents today complaining of multiple cutaneous lesions which reports come and go. This includes in bilateral upper and lower extremities. She previously underwent a cervical node needle biopsy which was benign without evidence of metastatic disease. She is still very concerned and on the verge of tears regarding the continued lymphadenopathy which includes in the bilateral groins especially the right groin. She presents to discuss possible cervical node biopsy. She reports fever, chills, anorexia, night sweats. She previously underwent bilateral prophylactic mastectomy with reconstruction which was complicated by an infection of the barrel planer. This was treated with antibiotics without the need to remove the barrel planer. Genetic testing revealed no clinically significant mutations and no variance of unknown significance. Her Tyrer-Zoraida remaining lifetime risk of breast cancer was above 20% although since she is s/p bilateral mastectomy, there is no role for either mammography or breast MRI. [facility] Medical History Emphysema of lung Breast implant status Cervical lymphadenopathy Vitamin D deficiency Postoperative hypothyroidism Thyroid cancer Nipple discharge Hypothyroidism Graves disease Interstitial cystitis Surgical History History of bladder surgery Hx of bilateral mastectomy History of incision and drainage S/P thyroidectomy (~08/2020) Hx of breast reduction, elective Hx of lumpectomy Hx of knee surgery History of kidney surgery History of partial hysterectomy Family History Mother Graves disease Heart disease Breast cancer Maternal Aunt History of kidney cancer FH: kidney cancer Maternal Aunt History of carcinoma Breast cancer Maternal Grandmother Colon cancer Family/Other Family history of autoimmune disorder Mother Triple negative breast carcinoma Maternal Aunt History of rectal or anal cancer Social History Household Members: Significant Other Housing: House Alcohol intake: former Patient Tobacco Use Status: Current everyday Tobacco user Tobacco use type: Cigarette e-Cigarette/Vaping Use: Currently Using Second Hand Smoke Exposure: No Substance Use Type: Marijuana Current occupational status: employed 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 occupational exposures/hazards: Yes Gender identity: Female Cognitive needs: No Hearing needs: No Vision needs: No Review of Systems Const All systems reviewed & are unremarkable except as noted in HPI and below Skin/Breast Reports changing lesions Psych Reports anxiety Simeon/Lymph Reports lymphadenopathy Physical Exam Vital Signs: Last Vital Signs Pulse 84 03/05/25 11:18 BP 173/104 H 03/05/25 11:18 BMI result Body Mass Index 19.2 Const General: no acute distress and anxious Nutritional Appearance: thin Orientation/consciousness: patient oriented x3 Limitations: no limitations HEENT Head: Yes normocephalic and Yes atraumatic Ears: hearing grossly normal bilaterally Neck Other: Several small shotty nodes palpable right greater than left. No skin changes appreciated. Trachea midline. No JVD Resp Effort & Inspection: normal respiratory effort, no audible wheezes, no cough and no respiratory distress GI Palpation (GI): Soft to palpation, nontender, no guarding, not rigid and no masses Skin Other: Multiple small soft tissue masses within the subcutaneous tissue suggestive of underlying lipoma or neurofibroma. Also noted is a fibrotic appearing skin lesion located in the left upper outer thigh measuring 2 cm in diameter. There was an underlying mass associated with this. Full body images: 2 1. Site of palpable subcutaneous mass and overlying fibroma left upper outer thigh, 2 cm diameter 2. Palpable node right groin Neuro General: patient oriented x3 Extrem Other: Normal range of motion, no edema. Examination in the groin right side is a palpable lymph node measuring approximately 2.5 cm, mobile within the subcutaneous tissue. No tenderness noted to palpation. Assessment & Plan Assessment & Plan (1) Inguinal lymphadenopathy: Code(s): R59.0 - Localized enlarged lymph nodes Category: Medical (2) Cervical lymphadenopathy: Code(s): R59.0 - Localized enlarged lymph nodes Category: Medical (3) Subcutaneous mass: Code(s): R22.9 - Localized swelling, mass and lump, unspecified Category: Medical Plan 44-year-old female patient presenting with multiple complaints of subcutaneous skin lesions which seemed to wax and wane in size with the associated lymphadenopathy noted diffusely. Patient is very concerned about lymphoma or other cancers and as a result is very anxious. I recommended excision of 1 of the skin/subcutaneous lesions as well as 1 of the enlarged lymph nodes, the largest of which I feel in the right groin. This could be performed as a short- stay surgery at her earliest convenience. After discussion of the procedure, risks, and alternatives, she consents to excision of a left thigh skin lesion and right inguinal lymph node. Coding Level of Care Code Est Pt Level 4 (39391) Diagnoses Inguinal lymphadenopathy R59.0 Cervical lymphadenopathy R59.0 Subcutaneous mass R22.9
[2025-03-05 11:18] VITALS: BP 173/104; PULSE 84; BMI 19.2
--- OUTSIDE RECORDS SUMMARY | 2025-03-05 11:57 | XMS_ITS | Clinical Summary ---
Author Organization [facility] it Address [address] [place] [address] Care Team Providers Care Manugrapher Name Role Phone Chuy Petty NP Primary [...] - 2023-2 5 season) 2024 Influenza Vaccine (Season Ended) 2025 HIB Vaccines Aged Out No longer eligi [...] age to complete this topic Meningococcal B Vaccine Aged Out No l onger eligible based on patient's age to complete [...] age to complete this topic Care Teams Manugrapher Relationship Specialty Start Date End Date [facility] [address] [facility] [place] [facility] - General Family Medicine 09/16/17
== END 2025-03-05 11:35 | disposition home or self-care (01) ==
LOC: HO.HGS 11:05
PROVIDERS: PCP Nurse Practitioner Family; Visit Provider Surgery
DX: R59.0 Localized enlarged lymph nodes (principal)
CPT/HCPCS: 99214

== ENCOUNTER → 2025-03-05 11:04 | Outpatient (BNVA) | payer OTHER, SELFPAY | PROVIDERS: PCP Nurse Practitioner Family; Visit Provider Surgery | DX: R59.0 Localized enlarged lymph nodes (principal) | CPT/HCPCS: 99212 ==

== ENCOUNTER 2025-03-16 07:15 | Outpatient (AMB) | payer OTHER, SELFPAY ==
--- OUTSIDE RECORDS SUMMARY | 2025-03-16 07:18 | XMS_ITS | Clinical Summary ---
Author Organization [facility] it Address [address] [place] [address] Care Team Providers Care Cyber Intel Planner Name Role Phone Chuy Petty NP Primary [...] age to complete this topic Care Teams Cyber Intel Planner Relationship Specialty Start Date End Date [facility]ty [facility] [place] PCP - General Family Medicine 09/16/17
--- NOTE | 2025-03-16 07:52 | A.OFFPC_ITS ---
Intake Visit Reasons: Follow Up- Biopsy Allergies cephalexin [Keflex] Allergy (Intermediate, Verified 03/16/25 07:54) syncope ciprofloxacin [Cipro] Allergy (Intermediate, Verified 03/16/25 07:54) dizziness penicillin V Allergy (Intermediate, Verified 03/16/25 07:54) Hives Sun Allergy (Intermediate, Uncoded 03/16/25 07:54) Hives from direct sunlight Medication List - Last Reconciled 03/16/25 [facility] albuterol sulfate 90 mcg/actuation (Ventolin HFA) 2 puffs inhalation Q4-6H PRN cyanocobalamin (vitamin B-12) (Vitamin B-12) 1,000 mcg PO DAILY gabapentin 300 mg PO .4 x a day PRN levothyroxine 88 mcg PO DAILY levothyroxine 100 mcg PO DAILY tizanidine 4 mg PO BID PRN Tobacco use date assessed: 02/28/23 HPI Follow Up- Biopsy HPI Details History of Present Illness The patient is a 44-year-old female presenting with cervical and inguinal lymphadenopathy. She was previously evaluated by an ENT in the fall, where a needle biopsy of the cervical lymph nodes was performed, yielding negative results. Despite this, the patient reports that the lymph nodes have increased in size, and she is experiencing tenderness in the inguinal region. Recently, the patient consulted with a general surgeon who recommended excision of the lymph nodes for further examination, scheduled to occur in two days (inguinal nodes). The patient also experienced a new onset seizure three days ago, which was witnessed by her friend and boyfriend. During the episode, she appeared catatonic, exhibited foaming at the mouth, and had convulsions. She was taken to the hospital, where extensive blood work was performed, but no CT scans or EEGs were conducted (according to pt). Postictally, the patient was disoriented and unable to recognize her friend, but she has since returned to her baseline state. She denies any further seizure activity, fevers, chills, blurred vision, headaches, or aura preceding the seizure. Review of Systems - Neurological: Reports seizure activity . Denies further seizures, blurred vision, headaches, or aura. - Lymphatic: Reports enlargement and ten derness of cervical and inguinal lymph nodes. - General: Denies fevers or chills. Plan The patient will undergo surgical excision of the lymph nodes for further pathological examination, as recommended by the general surgeon. Given the recent seizure, further neurological evaluation is considered, including the possibility of ordering additional tests such as CT scans or EEGs to investigate the cause. The patient is advised to refrain from work until further evaluation is com pleted, and FMLA paperwork will be completed to support this. Discussion Notes I discussed with the patient the need for further evaluation of her lymphadenopathy through surgical excision and the importance of investigating the recent seizure activity. We talked about the potential need for neurological consultation and additional testing, such as CT scans or EEGs, to determine the cause of the seizure. I advised her to refrain from work until these issues are further evaluated and assured her that I would complete the necessary FMLA paperwork. Patient Instructions - Follow up with the general surgeon for lymph node excision as scheduled. - Monitor for any new or worsening sympt oms and report them immediately. - Refrain from work until further evalua tion is completed. - Await further instructions regarding n eurological evaluation and potential testing. [facility] Medical History Rheumatoid arthritis Medullary sponge kidney Anxiety Emphysema of lung Breast implant status Cervical lymphadenopathy Vitamin D deficiency Postoperative hypothyroidism Thyroid cancer Graves disease Interstitial cystitis Surgical History History of bladder surgery Hx of bilateral mastectomy History of incision and drainage S/P thyroidectomy (~08/2020) Hx of breast reduction, elective Hx of lumpectomy Hx of knee surgery History of kidney surgery History of partial hysterectomy Family History Mother Graves disease Heart disease Breast cancer Maternal Aunt History of kidney cancer FH: kidney cancer Maternal Aunt History of carcinoma Breast cancer Maternal Grandmother Colon cancer Family/Other Family history of autoimmune disorder Mother Triple negative breast carcinoma Maternal Aunt History of rectal or anal cancer Social History Household Members: Significant Other Housing: House Are you a primary janitor caretaker to a significant other at home: No Do you presently have visiting nurse or other home services: No Alcohol intake: former Patient Tobacco Use Status: Current someday Tobacco user Tobacco use type: Cigarette Cigarettes Per Day: 2 Years Smoked: 29 e-Cigarette/Vaping Use: Currently Using Second Hand Smoke Exposure: No Substance Use Type: Marijuana Current occupational status: employed 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 Demetrio Mustafa, Cathy Boo, Francesco Zaragoza and colleagues, with an educational audrey from [employer]. Physical exam (Primary Care) Tobacco/Smoking Status: Tobacco use Status Tobacco use date assessed 02/28/23 06/25/24 07:05 Patient Tobacco Use Status Current someday Tobacco 03/11/25 10:27 Tobacco use type Cigarette 03/11/25 10:27 e-Cigarette/Vaping Use Currently Using 06/25/24 07:05 Thrive Assessment: Date of Thrive Assessment Date Thrive assessed 03/08/25 03/08/25 11:42 Telehealth Telehealth Telehealth Platform: Y[employer] Location of provider rendering services: practice address Location of patient: address on file Patient Identification confirmed using: Name, : Yes Telehealth method: video Patient verbally consented to treatment: Yes Patient verbally consented to billing insurance company: Yes Patient informed of any privacy concerns related to visit: Yes Minutes spent on Phone/Video with Pt.: 15 Coding Level of Care Code Tele Est Pt Level 3 (19274) Diagnoses Inguinal lymphadenopathy R59.0 LOC (loss of consciousness) R40.20 Cervical lymphadenopathy R59.0 Assessment & Plan Assessment & Plan (1) Inguinal lymphadenopathy: Code(s): R59.0 - Localized enlarged lymph nodes Category: Medical (2) LOC (loss of consciousness): Code(s): R40.20 - Unspecified coma Category: Medical (3) Cervical lymphadenopathy: Code(s): R59.0 - Localized enlarged lymph nodes Category: Medical Plan .
== END 2025-03-16 08:59 | disposition home or self-care (01) ==
LOC: HO.HMCC 07:15
PROVIDERS: PCP Nurse Practitioner Family; Visit Provider Nurse Practitioner Family
DX: R59.0 Localized enlarged lymph nodes (principal); R40.20 Unspecified coma

== ENCOUNTER → 2025-03-16 07:15 | Outpatient (BNVA) | payer OTHER, SELFPAY | PROVIDERS: PCP Nurse Practitioner Family; Visit Provider Nurse Practitioner Family | DX: Z13.89 Encounter for screening for other disorder (principal) ==

== ENCOUNTER 2025-03-17 15:36 | Outpatient (REF) | payer OTHER, SELFPAY ==
--- NOTE | ~2025-03-17 | US_ITS ---
CLINICAL HISTORY: Bilateral cervical lymphadenopathy --- Additional Notes or Special Instructions: Bilateral cervical lymphadenopathy. US neck nonvascular Comparison: 05/22/2024 per technologist worksheet Findings: Slightly bulbous cervical lymph nodes with central flow, reniform shape, cortical thickening without cortical disruption as follows: Right: Level II: 2.3 x 0.5 x 1.4 cm previously measuring 3.1 x 0.7 x 1.6 cm Level IA: 0.9 x 0.7 x 0.5 cm Left: Left IA: 0.6 x 0.5 x 0.2 cm previously measuring 0.4 x 0.2 x 0.4 cm Impression: Bulbous cervical lymph nodes as described This document has been electronically signed by: Blaise West MD on 03/18/2025 09:33:53
--- OUTSIDE RECORDS SUMMARY | 2025-03-17 17:47 | XMS_ITS | Clinical Summary ---
Author Organization [facility] it Address [address] [place] [address] Care Team Providers Care Social Services Analyst Name Role Phone Chuy Petty NP Primary Care Provider [phone] Social History Tobacco Use Types Packs/Day Years [...] age to complete this topic Care Teams Social Services Analyst Relationship Specialty Start Date End Date [facility] Petty [facility] [place] P[facility] - General Family Medicine 09/16/17
== END 2025-03-17 15:37 | disposition home or self-care (01) ==
LOC: HO.HMGCX 15:36
PROVIDERS: PCP Nurse Practitioner Family; Visit Provider Nurse Practitioner Family
DX: R59.0 Localized enlarged lymph nodes (principal); Z85.850 Personal history of malignant neoplasm of thyroid
CPT/HCPCS: 76536

== ENCOUNTER → 2025-03-17 15:43 | Outpatient (BNV) | payer OTHER, SELFPAY | PROVIDERS: PCP Nurse Practitioner Family; Visit Provider Radiology Diagnostic Radiology | DX: R59.0 Localized enlarged lymph nodes (principal) | CPT/HCPCS: 76536 ==

== ENCOUNTER → 2025-03-18 10:21 | Day surgery (SDC) | payer OTHER, SELFPAY ==
[2025-03-11 10:27] VITALS: BMI 19.6
[2025-03-11 10:34] VITALS: BP 130/90; PULSE 71; RESP 20; O2SAT 98
--- NOTE | 2025-03-11 10:43 | P.CONAN_ITS ---
HPI - Anesthesia Eval Consult details Narrative: 44yo F for Excision RIGHT inguinal Lymph node and excision LEFT leg skin lesion No recent illness Some AHN with walking, No CP. Activity limited d/t fatigue. s/p prophylactic bilateral mastectomy Graves ds s/p thyroidectomy PMFSH Active Problems Active Problems: All Active Problems Subcutaneous mass (Acute) Inguinal lymphadenopathy (Acute) LOC (loss of consciousness) (Acute) Paresthesia of hand, bilateral (Acute) Greater trochanteric bursitis of left hip (Acute) Internal derangement of left knee (Acute) Acute joint pain (Acute) Physical exam (Acute) Screening for STD (sexually transmitted disease) (Acute) B12 deficiency (Acute) Elevated TSH (Acute) Screening for STD (sexually transmitted disease) (Acute) Anemia (Acute) Leukocytosis (Acute) Vertigo (Acute) Otalgia, left ear (Acute) Left hip pain (Acute) Dysuria (Acute) Screening for STD (sexually transmitted disease) (Acute) Arthralgia (Acute) Whole body pain (Acute) Skin infection (Acute) Cyclical mastalgia (Acute) Acute mastitis of left breast (Acute) Breast abscess (Acute) Nipple discharge (Acute) Family hx-breast malignancy (Chronic) Hypothyroidism (Acute) Cervical lymphadenopathy (Acute) Vitamin D deficiency (Acute) Postoperative hypothyroidism (Acute) Thyroid cancer (Acute) Past Medical History Medical History Rheumatoid arthritis Medullary sponge kidney Anxiety Emphysema of lung Breast implant status Cervical lymphadenopathy Vitamin D deficiency Postoperative hypothyroidism Thyroid cancer Graves disease Interstitial cystitis Family History Family History Mother Graves disease Heart disease Breast cancer Maternal Aunt History of kidney cancer FH: kidney cancer Maternal Aunt History of carcinoma Breast cancer Maternal Grandmother Colon cancer Family/Other Family history of autoimmune disorder Mother Triple negative breast carcinoma Maternal Aunt History of rectal or anal cancer Family history of problems with anesthesia: No Surgical History Surgical History History of bladder surgery Hx of bilateral mastectomy History of incision and drainage S/P thyroidectomy (~08/2020) Hx of breast reduction, elective Hx of lumpectomy Hx of knee surgery History of kidney surgery History of partial hysterectomy History of Problems with Anesthesia: No Social History Social History Household Members: Significant Other Housing: House Are you a primary youth care specialist to a significant other at home: No Do you presently have visiting nurse or other home services: No Alcohol intake: former Patient Tobacco Use Status: Current someday Tobacco user Tobacco use type: Cigarette Cigarettes Per Day: 2 Years Smoked: 29 Packs per year/per ci.90 e-Cigarette/Vaping Use: Currently Using Second Hand Smoke Exposure: No Substance Use Type: Marijuana Current occupational status: employed 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 Current occupational exposures/hazards: Yes Gender identity: Female Cognitive needs: No Hearing needs: No Vision needs: No Meds Allergies Allergy/AdvReac Type Severity Reaction Status Date / Time cephalexin (Keflex) Allergy Intermediate syncope Verified 03/16/25 07:54 ciprofloxacin (Cipro) Allergy Intermediate dizziness Verified 03/16/25 07:54 penicillin V Allergy Intermediate Hives Verified 03/16/25 07:54 Sun Allergy Intermediate Hives from Uncoded 03/16/25 07:54 direct sunlight Home Medications ?Medication ?Instructions ?Recorded ?Confirmed ?Last Taken ?Type albuterol sulfate 90 mcg/actuation 2 puff inhalation Q 4-6H PRN 03/11/25 03/16/25 Unknown History aerosol inhaler (Ventolin HFA) Shortness Of Breath gabapentin 300 mg capsule 300 mg PO .4 x a day PRN Georgette n 03/11/25 03/16/25 Unknown History Exam Height,Weight and Vital Signs: Height 5 ft 2 in Weight 48.534 kg Last Vital Signs Pulse 71 03/11/25 10:34 Resp 20 03/11/25 10:34 BP 130/90 H 03/11/25 10:34 Pulse Ox 98 03/11/25 10:34 O2 Del Method Room Air 03/11/25 10:34 Pertinent Lab Results Pertinent Lab Results: Laboratory Tests 06/11/24 02/17/25 13:25 15:22 WBC 9.0 Hgb 14.2 D Hct 40.9 Plt Count 374 Sodium 140 Potassium 4.2 Chloride 105 Carbon Dioxide 26 BUN 14 Creatinine 0.71 Airway Mallampati Class: II TM Dist: >3cm Neck ROM: Full Loose/Missing/Broken Teeth: Yes (#9 loose, #8 chipped) Heart: RRR Lungs: CTAB Assessment and Plan Assessment Anesthesia Assessment: Anesthesia Plan Discussed, Smoking Cess. Discussed and PAT Visit Final Anesthetic Review Family History of Problems with Anesthesia: No History of Problems with Anesthesia: No
[2025-03-18 11:14] VITALS: BMI 20.3
[2025-03-18 11:36] VITALS: BP 117/82; PULSE 75; RESP 16; TEMP 36; O2SAT 98
--- NOTE | 2025-03-18 11:52 | PC.NURSE ---
no iv started. patient canceled due to not being medically cleared or seen by a neurologist for her seizure on Saturday. instructed patient to go back to [facility] to get her labs drawn that were ordered and to call to see where her mri will be peformed at. and needs to be cleared by a neurologist and then can be rescheduled for her procedure.
== END ==
LOC: HO.SSS 10:22
PROVIDERS: PCP Nurse Practitioner Family; Visit Provider Surgery
DX: R59.0 Localized enlarged lymph nodes (principal); Z53.8 Procedure and treatment not carried out for other reasons; L98.9 Disorder of the skin and subcutaneous tissue, unspecified

== ENCOUNTER → 2025-03-22 09:11 | Outpatient (BNV) | payer OTHER, SELFPAY | PROVIDERS: PCP Nurse Practitioner Family; Visit Provider Radiology Diagnostic Radiology | DX: R56.9 Unspecified convulsions (principal) | CPT/HCPCS: 70551 ==

== ENCOUNTER 2025-03-22 09:13 | Outpatient (REF) | payer OTHER, SELFPAY ==
--- NOTE | ~2025-03-22 | MR_ITS ---
EXAMINATION: MR BRAIN WITHOUT CONTRAST CLINICAL INFORMATION: Unspecified convulsions. 44-year-old female. New onset seizures with blurry vision. COMPARISON: None available. Correlation made with CT head 01/04/2022. TECHNIQUE: MRI of the brain was obtained using routine sequences without contrast. Examination performed on a 1.5 Elsie Siemens high-field unit. FINDINGS: There is no diffusion restriction. There is no intracranial hemorrhage, acute infarction, mass effect, or edema. Ventricles, sulci, and cisterns are normal in size and configuration for patient age. No shift of midline. No abnormal hemosiderin deposition is identified. There are no significant white matter signal abnormalities. The hippocampal formations have normal signal and volume. No evidence of hippocampal atrophy. Normal-appearing mesial temporal lobes. Temporal horns are symmetric and nondilated. No evidence of heterotopic kirby matter, or gross cortical dysplasia. Midline structures appear normally formed. Normal corpus callosum. The pituitary gland appears normal. Posterior fossa structures appear normal. Cerebellar tonsils are appropriately located. Major flow voids are preserved within the skull base. The globes and orbital contents demonstrate no abnormalities. Paranasal sinuses are clear bilaterally. Nasal septum is midline without spur. The mastoids and tympanic cavities are normally aerated. Extracranial soft tissues demonstrate no abnormalities. No suspicious bone marrow changes are evident. Atlantoaxial joint is normal. MR/MR head/brain wo con IMPRESSION: 1. No evidence of intracranial hemorrhage, acute infarction, mass effect, or edema. 2. Mesial temporal lobes are normal in signal and appearance. No atrophy. 3. No heterotopic kirby matter identified. No evidence of cortical dysplasia. 4. No significant white matter signal abnormality. Electronically signed by: Minor Yan MD 03/22/2025 11:07 AM EDT
--- OUTSIDE RECORDS SUMMARY | 2025-03-22 10:01 | XMS_ITS | Clinical Summary ---
Author Organization [facility] Address [address] [place] [address] Care Team Providers Care Gaming Pit Boss Name Role Phone Chuy Petty NP Primary [...] age to complete this topic Care Teams Gaming Pit Boss Relationship Specialty Start Date End Date Chuy Petty NP [address] [facility] [place] PCP - General Family Medicine 09/16/17
== END 2025-03-22 09:14 | disposition home or self-care (01) ==
LOC: HO.MRI 09:13
PROVIDERS: PCP Nurse Practitioner Family; Visit Provider Nurse Practitioner Family
DX: R56.9 Unspecified convulsions (principal); R40.20 Unspecified coma
CPT/HCPCS: 70551

== ENCOUNTER 2025-06-09 14:34 | Outpatient (REF) | payer OTHER, SELFPAY ==
--- NOTE | 2025-06-09 14:37 | EEG_ITS ---
Roomed Performed: 1st floor Reason:Seizure like activity History: H/O rheumatoid arthritis, medullary sponge kidney, anxiety, breast implant status, cervical lymphadenopathy, vit D deficiency, thyroid cancer, postoperative hypothyroidism, Graves disease,interstitial cystitis, h/o bilateral mastectomy, partial hysterectomy Medication:albuterol, vit b12, gabapentin, levothyroxine, tizanidine Technical Description Photic stimulation: completed Hyperventilation: performed- good effort Behavioral state: tense at times but cooperative State of Consciousness: awake with periods of brief sleep Skull defect: no Sedation: no Handedness: Right Duration of study: 33 min 20 sec Description: This is a 16 channel EEG with an EKG lead. Patient is awake with periods of sleep. Background EEG rhythm during wakefulness is about 10 hertz 5- 50 microvolt posteriorly and lower amplitude fast anteriorly. Some lead and muscle artifacts are noted. Photic stimulation does not produce any significant driving. Hyperventilation is unremarkable. Cardiac lead does not reveal any significant abnormality. No definite sharp wave spikes or paroxysmal tendency noted. Impression: No significant abnormality noted on this EEG. MTDD
== END 2025-06-09 14:35 | disposition home or self-care (01) ==
LOC: HO.NEURO 14:34
PROVIDERS: PCP Nurse Practitioner Family; Visit Provider Nurse Practitioner Family
DX: R56.9 Unspecified convulsions (principal)
CPT/HCPCS: 95816

== ENCOUNTER → 2025-06-09 14:37 | Outpatient (BNV) | payer OTHER, SELFPAY | PROVIDERS: PCP Nurse Practitioner Family; Visit Provider Psychiatry & Neurology Neurology | DX: R56.9 Unspecified convulsions (principal) | CPT/HCPCS: 95819 ==

== ENCOUNTER 2025-06-30 09:48 | Outpatient (AMB) | payer OTHER, SELFPAY ==
[2025-06-30 09:55] VITALS: BP 122/76; PULSE 95; TEMP 37.1; O2SAT 101; BMI 21.6
--- NOTE | 2025-06-30 09:55 | AM.OFFWIN_ITS ---
Intake Vital Signs 06/30/25 09:55 Height 5 ft 2 in Weight 118 lb BMI 21.6 BP 122/76 Blood Pressure Location Lt brachial Position Sitting Pulse 95 Pulse Source Pulse Oximeter Temp 98.8 F Temp Source Oral Pulse Oximetry (%) 101 H Oxygen Delivery Method Room Air Intake Visit Reasons: EP Lump on right side of body Intake Note: pt presents with a lump on left rib rib cage, sometimes aches. also c/o irritated lesion right posterior scalp. Patient Tobacco Use Status: Current everyday Tobacco user Allergies cephalexin (Keflex) Allergy (Intermediate, Verified 06/30/25 10:05) syncope ciprofloxacin (Cipro) Allergy (Intermediate, Verified 06/30/25 10:05) dizziness penicillin V Allergy (Intermediate, Verified 06/30/25 10:05) Hives Sun Allergy (Intermediate, Uncoded 03/16/25 07:54) Hives from direct sunlight Medication List - Last Reconciled 06/30/25 by Arnol Simon MD albuterol sulfate 90 mcg/actuation (Ventolin HFA) 2 puffs inhalation Q4-6H PRN cyanocobalamin (vitamin B-12) (Vitamin B-12) 1,000 mcg PO DAILY gabapentin 300 mg PO .4 x a day PRN levothyroxine 88 mcg PO DAILY levothyroxine 100 mcg PO DAILY tizanidine 4 mg PO BID PRN Do you need a note to return to daycare/school/sports/work: No HPI EP Lump on right side of body HPI Details History of Present Illness The patient is a 44-year-old female presenting with respiratory issues and a lump on the side. Left side Respiratory issues: - The patient reports experiencing a per sistent cough for four days. - The patient describes a heavy feeling in the chest but denies any sputum production. - The patient has a smoking history and mentions having COPD and emphysema. . Lump on the side: - The patient reports having a lump on h er side lateral chest left side for a while, which causes discomfort. Off and on and has been present chronically On examination it feels like a lipoma Patient has a history of thyroid cancer she also have a enlarged lymph node behind right ear that need to be re-evaluated after treatment with antibiotic Medical History: - Chronic Obstructive Pulmonary Disease (COPD) - Emphysema - Thyroid cancer with a history of surge ry - Seizures Surgical History: - Thyroidectomy Social History: - The patient smokes. Problem list COPD exacerbation with chest infection Lymphadenopathy behind right ear History of thyroid cancer with thyroidectomy Lipoma left chest Patient Instructions - Take the prescribed steroid and antibi otics as directed. - Use the prescribed inhaler for difficu lty breathing. - Schedule an appointment with your [facility] physician for further examination of the lump. - Follow up with the neurologist for dean pena as planned. - Return for a checkup if symptoms do no t improve after taking medications. Review of Systems - Neurological: No headaches no dizziness - Ear nose throat: No sore throat no hearing difficulty no ear pain - Cardiovascular: No syncope, no chest pain, no palpitations - Gastrointestinal: No nausea vomiting or diarrhea Physical Exam General: No acute distress HEENT: Single enlarged lymph node behind right ear Neck: Supple, Respiratory system: Breathing comfortably mild wheezing present posteriorly no audible wheeze Chest small area of fat accumulation lateral left side lower chest Gastrointestinal: No pain Extremities: No new findings SECOND FACING BASTER: Alert awake oriented x3 motor intact Skin: Normal turgor PFSH Medical History Seizure Rheumatoid arthritis Medullary sponge kidney Anxiety Emphysema of lung Breast implant status Cervical lymphadenopathy Vitamin D deficiency Postoperative hypothyroidism Thyroid cancer Graves disease Interstitial cystitis Surgical History History of bladder surgery Hx of bilateral mastectomy History of incision and drainage S/P thyroidectomy (~08/2020) Hx of breast reduction, elective Hx of lumpectomy Hx of knee surgery History of kidney surgery History of partial hysterectomy Family History Mother Graves disease Heart disease Breast cancer Maternal Aunt History of kidney cancer FH: kidney cancer Maternal Aunt History of carcinoma Breast cancer Maternal Grandmother Colon cancer Family/Other Family history of autoimmune disorder Mother Triple negative breast carcinoma Maternal Aunt History of rectal or anal cancer Social History Household Members: Significant Other Housing: House Are you a primary home care administrator to a significant other at home: No Do you presently have visiting nurse or other home services: No Alcohol intake: former Patient Tobacco Use Status: Current everyday Tobacco user Tobacco use type: Smokeless Tobacco Cigarettes Per Day: 2 Years Smoked: 29 e-Cigarette/Vaping Use: Currently Using Second Hand Smoke Exposure: No Substance Use Type: Marijuana Current occupational status: employed 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 occupational exposures/hazards: Yes Gender identity: Female Cognitive needs: No Hearing needs: No Vision needs: No Physical Exam Vital Signs: Last Vital Signs Temp 98.8 F 06/30/25 09:55 Pulse 95 06/30/25 09:55 BP 122/76 06/30/25 09:55 Pulse Ox 101 H 06/30/25 09:55 Oxygen Delivery Method Room Air 06/30/25 09:55 BMI result Body Mass Index 21.6 Assessment & Plan Assessment & Plan (1) COPD exacerbation: Code(s): J44.1 - Chronic obstructive pulmonary disease with (acute) exacerbation (2) Lymphadenopathy: Code(s): R59.1 - Generalized enlarged lymph nodes Plan History of Present Illness The patient is a 44-year-old female presenting with respiratory issues and a lump on the side. Left side Respiratory issues: - The patient reports experiencing a persistent cough for four days. - The patient describes a heavy feeling in the chest but denies any sputum production. - The patient has a smoking history and mentions having COPD and emphysema. . Lump on the side: - The patient reports having a lump on her side lateral chest left side for a while, which causes discomfort. Off and on and has been present chronically On examination it feels like a lipoma Patient has a history of thyroid cancer she also have a enlarged lymph node behind right ear that need to be re-evaluated after treatment with antibiotic Medical History: - Chronic Obstructive Pulmonary Disease (COPD) - Emphysema - Thyroid cancer with a history of surgery - Seizures Surgical History: - Thyroidectomy Social History: - The patient smokes. Problem list COPD exacerbation with chest infection Lymphadenopathy behind right ear History of thyroid cancer with thyroidectomy Lipoma left chest Patient Instructions - Take the prescribed steroid and antibiotics as directed. - Use the prescribed inhaler for difficulty breathing. - Schedule an appointment with your primary care physician for further examination of the lump. - Follow up with the neurologist for seizures as planned. - Return for a checkup if symptoms do not improve after taking medications. Medications: New azithromycin Take 2 tablets today then 1 daily 250 mg PO ONCE 6 tabs 0RF 5 days J06.9 - Acute upper respiratory infection, unspecified prednisone 20 mg PO DAILY 5 tabs 0RF 5 days Coding Level of Care Code Est Pt Level 4 (59502) Diagnoses COPD exacerbation J44.1 Lymphadenopathy R59.1
== END 2025-06-30 10:40 | disposition home or self-care (01) ==
PROVIDERS: PCP Nurse Practitioner Family; Visit Provider Internal Medicine
DX: J44.1 Chronic obstructive pulmonary disease with (acute) exacerbation (principal); R59.1 Generalized enlarged lymph nodes

== ENCOUNTER → 2025-06-30 09:48 | Outpatient (BNVA) | payer OTHER, SELFPAY | PROVIDERS: PCP Nurse Practitioner Family; Visit Provider Internal Medicine | DX: R59.1 Generalized enlarged lymph nodes (principal); J44.9 Chronic obstructive pulmonary disease, unspecified | CPT/HCPCS: 99212 ==

== ENCOUNTER 2025-07-13 09:29 | Outpatient (AMB) | payer OTHER, SELFPAY ==
--- NOTE | 2025-07-13 09:49 | MHC.OFFVIS ---
Vital Signs 07/13/25 09:50 Height 5 ft 2 in Weight 118 lb BMI 21.6 BP 112/68 Blood Pressure Location Rt brachial Position Sitting Respiration 16 Pulse 71 Pulse Source Pulse Oximeter Pulse Oximetry (%) 98 Oxygen Delivery Method Room Air Intake Visit Reasons: Seizure like activities Allergies cephalexin (Keflex) Allergy (Intermediate, Verified 07/13/25 09:49) syncope ciprofloxacin (Cipro) Allergy (Intermediate, Verified 07/13/25 09:49) dizziness penicillin V Allergy (Intermediate, Verified 07/13/25 09:49) Hives Sun Allergy (Intermediate, Uncoded 07/13/25 09:49) Hives from direct sunlight HPI Comments Details: Sherrie is a 44-year-old female patient with a past medical history of thyroid CA, bilateral mastectomy, who was here for evaluation of new onset seizures starting in January of 2025. In addition to the seizure activity, she brings concerns for new onset of lymphadenopathy and masses on her skin of unknown etiology that started after onset of her seizures. She tells me that starting in January, she had episodes of tonic-clonic events that started with the prodrome of confusion/cognitive slowing and developed into whole-body shaking with foaming at the mouth lasting 7-8 minutes as witnessed by others around her. She does have postictal confusion. This happened a few times and aside from this she has had other ?partial seizure events that include a strange sensation and sense of impending doom with shaking of her whole-body afterward. The shaking is bilateral and she is aware during this event though she tells me that she can not respond to others during this event. This lasts several minutes and afterwards she will feel extremely tired. In total, she has had an average of 10 seizure-like events since January. She has had a workup here including an EEG and an MRI of the brain both of which have been unrevealing. She continues to have intermittent lymph swelling to the neck, axilla, and groin as well as new arising small areas of skin lesion with brown/dark discoloration which are typically round and slightly raised. They are painless. She plans to have excision of some of the lump/lesions by our general surgeon however she needs clearance from Neurology to have these surgical procedures performed. Seizure background information: Onset of seizures: January of 2025 Seizure type:Tonic-clonic Aura/warning signs:Cogitative slowing Postictal period:Confusion Triggers: Stress Last brain imagin02/2025 Last EE02/2025 History of brain infection:None History of significant illness or hospitalization: Age 15 for kidney disease. History of stroke of brain bleed: None History of pre-term :None History of learning disability:Does have dyslexia Family history of seizure: Not that she is aware of Prior workup: MRI brain 02/2025 IMPRESSION: 1. No evidence of intracranial hemorrhage, acute infarction, mass effect, or edema. 2. Mesial temporal lobes are normal in signal and appearance. No atrophy. 3. No heterotopic kirby matter identified. No evidence of cortical dysplasia. 4. No significant white matter signal abnormality. 06/09/2025 EEG Description: This is a 16 channel EEG with an EKG lead. Patient is awake with periods of sleep. Background EEG rhythm during wakefulness is about 10 hertz 5-50 microvolt posteriorly and lower amplitude fast anteriorly. Some lead and muscle artifacts are noted. Photic stimulation does not produce any significant driving. Hyperventilation is unremarkable. Cardiac lead does not reveal any significant abnormality. No definite sharp wave spikes or paroxysmal tendency noted. Impression: No significant abnormality noted on this EEG. [facility] Medical History Seizure Rheumatoid arthritis Medullary sponge kidney Anxiety Emphysema of lung Breast implant status Cervical lymphadenopathy Vitamin D deficiency Postoperative hypothyroidism Thyroid cancer Graves disease Interstitial cystitis Surgical History History of bladder surgery Hx of bilateral mastectomy History of incision and drainage S/P thyroidectomy (~08/2020) Hx of breast reduction, elective Hx of lumpectomy Hx of knee surgery History of kidney surgery History of partial hysterectomy Family History Mother Graves disease Heart disease Breast cancer Maternal Aunt History of kidney cancer FH: kidney cancer Maternal Aunt History of carcinoma Breast cancer Maternal Grandmother Colon cancer Family/Other Family history of autoimmune disorder Mother Triple negative breast carcinoma Maternal Aunt History of rectal or anal cancer Social History Household Members: Significant Other Housing: House Are you a primary career services coordinator to a significant other at home: No Do you presently have visiting nurse or other home services: No Alcohol intake: former Patient Tobacco Use Status: Current everyday Tobacco user Tobacco use type: Smokeless Tobacco Cigarettes Per Day: 2 Years Smoked: 29 e-Cigarette/Vaping Use: Currently Using Second Hand Smoke Exposure: No Substance Use Type: Marijuana Current occupational status: employed 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 occupational exposures/hazards: Yes Gender identity: Female Cognitive needs: No Hearing needs: No Vision needs: No Review of Systems Const All systems reviewed & are unremarkable except as noted in HPI and below Physical Exam Vital Signs: Last Vital Signs Pulse 71 07/13/25 09:50 Resp 16 07/13/25 09:50 BP 112/68 07/13/25 09:50 Pulse Ox 98 07/13/25 09:50 Oxygen Delivery Method Room Air 07/13/25 09:50 BMI result Body Mass Index 21.6 Const General: cooperative, healthy appearing, comfortable and no acute distress Nutritional Appearance: well nourished Orientation/consciousness: patient oriented x3 Limitations: no limitations HEENT Head: Yes normal to inspection and Yes normocephalic Eyes General: appearance normal, both eyes and all related structures Visual Cueva: normal visual cueva by confrontation Alignment and Position: alignment normal Periorbital: periorbital findings normal Eyelids: Yes eyelids normal Conjunctivae: conjunctivae normal Sclerae: sclerae normal Skin Other: Some notable small dark/hyperpigmented raised lesions of the skin Neuro General: patient oriented x3, tone normal and deep tendon reflexes 2+ bilaterally Cranial nerves: Yes CN's II-XII intact bilaterally and Yes Facial sensation intact/muscles of mastication intact Cognition (Neuro): normal cognition Gait exam (Neuro): Normal gait present Motor exam (neuro): 5/5 motor strength present throughout and no tremor noted Sensory Exam: double simultaneous stimulation for sensation normal Romberg Test: Negative Pupils: Normal pupillary reactivity/response: bilateral Psych Appearance: grossly normal Mental Status: mental status grossly normal Speech and movement: Normal speech and movement present and Clear speech present Affect: normal affect Attitude: cooperative Thought process: Normal thought process present Thought content: Normal thought content present Insight: Good insight present (Psych) Judgement: Good judgement present (Psych) Assessment & Plan Assessment & Plan (1) Seizure-like activity: Code(s): R56.9 - Unspecified convulsions Category: Medical Plan Sherrie is a 44-year-old female patient with a past medical history of thyroid CA, bilateral mastectomy, who was here for evaluation of new onset seizures starting in January of 2025. In addition to the seizure activity, she brings concerns for new onset of lymphadenopathy and masses on her skin of unknown etiology that started after onset of her seizures. Her seizure workup has so far been normal though EEG was a routine study and we could perform an ambulatory study in efforts to capture some of these events. Her brain MRI was within normal limits though not performed with IV contrast. We could consider IV contrast MRI to evaluate for any possibility of smaller lesions not otherwise identified on her initial MRI of the brain. We did discuss together the possibility of an underlying functional neurological disorder/possible psychogenic nonepileptic seizure events. I think reasonably, before making this determination, it is fair to pursue a more in-depth workup to rule out seizure events. If this more in-depth workup is normal, I do not think there would be any reason to hold off on her surgical procedures. -48 hour ambulatory EEG -MRI of the brain with and without contrast Coding Level of Care Code New Pt Level 4 (17649) Diagnoses Seizure-like activity R56.9
[2025-07-13 09:50] VITALS: BP 112/68; PULSE 71; RESP 16; O2SAT 98; BMI 21.6
== END 2025-07-13 10:30 | disposition home or self-care (01) ==
LOC: HO.HSM 09:30
PROVIDERS: PCP Nurse Practitioner Family; Visit Provider Nurse Practitioner
DX: R56.9 Unspecified convulsions (principal)
CPT/HCPCS: 99204

== ENCOUNTER → 2025-07-13 09:29 | Outpatient (BNVA) | payer OTHER, SELFPAY | PROVIDERS: PCP Nurse Practitioner Family; Visit Provider Nurse Practitioner | DX: R56.9 Unspecified convulsions (principal); Z85.850 Personal history of malignant neoplasm of thyroid | CPT/HCPCS: 99202 ==

== ENCOUNTER → 2025-08-23 10:34 | Outpatient (BNV) | payer OTHER, SELFPAY | PROVIDERS: PCP Nurse Practitioner Family; Visit Provider Radiology Diagnostic Radiology | DX: R56.9 Unspecified convulsions (principal) | CPT/HCPCS: 70553 ==

== ENCOUNTER 2025-08-23 10:41 | Outpatient (REF) | payer OTHER, SELFPAY ==
--- NOTE | ~2025-08-23 | MR_ITS ---
EXAMINATION: MR BRAIN WITHOUT AND WITH CONTRAST CLINICAL INFORMATION: Unspecified convulsions. Seizures started in last January. Grand mal minimally seizures. 44-year-old female. COMPARISON: 03/22/2025 MRI brain without contrast. TECHNIQUE: Multiplanar, multisequence MRI of the brain was obtained before and after the intravenous administration of 5 mL Gadavist. Examination performed on a 1.5 Elsie Siemens high-field unit, utilizing standard sequences. FINDINGS: There is no diffusion restriction. There is no intracranial hemorrhage, acute infarction, mass effect, or edema. Ventricles, sulci, and cisterns are normal in size and configuration for patient age. No shift of midline. No abnormal hemosiderin deposition is identified. There are no significant white matter signal abnormalities. No abnormal intra or extra-axial enhancement after the administration of contrast. The hippocampal formations have normal signal and volume. No evidence of heterotopic kirby matter or gross cortical dysplasia. Midline structures appear normally formed. Normal corpus callosum. The pituitary gland appears normal. Posterior fossa structures appear normal. Cerebellar tonsils are appropriately located. Major flow voids are preserved within the skull base. The globes and orbital contents demonstrate no abnormalities. Paranasal sinuses are clear bilaterally. The mastoids and tympanic cavities are normally aerated. Extracranial soft tissues demonstrate no abnormalities. No suspicious bone marrow changes are evident. Atlantoaxial joint is normal. MR/MR head/brain wo/w con IMPRESSION: 1. No evidence of intracranial hemorrhage, acute infarction, mass effect, or edema. No pathologic intra or extra-axial contrast enhancement. 2. Mesial temporal lobes are normal in signal and appearance. 3. No heterotopic kirby matter identified. No evidence of cortical dysplasia. Electronically signed by: Minor Yan MD 08/23/2025 01:15 PM EST
== END 2025-08-23 10:42 | disposition home or self-care (01) ==
LOC: HO.MRI 10:41
PROVIDERS: PCP Nurse Practitioner Family; Visit Provider Nurse Practitioner
DX: R59.1 Generalized enlarged lymph nodes (principal); R56.9 Unspecified convulsions
CPT/HCPCS: 70553; A9585

== ENCOUNTER 2025-09-04 07:42 | Outpatient (REF) | payer OTHER, SELFPAY ==
--- NOTE | ~2025-09-04 | US_ITS ---
EXAMINATION: US SOFT TISSUE HEAD AND NECK CLINICAL INFORMATION: Follow-up lymphadenopathy. COMPARISON: Previous head and neck soft tissue ultrasound February [address] of the neck December 2023 TECHNIQUE: Linear transducer kirby-scale and color Doppler examination of the soft tissues of the neck. FINDINGS: Right: Level 1B lymph node measuring 2.6 x 0.6 x 1.8 cm. This is decreased from 3.1 x 0.7 x 1.6 cm. This has normal ultrasound morphology and with a echogenic fatty hilum and normal hilar flow. Level 2 lymph node measuring 0.8 x 0.3 x 0.6 cm. This measures 0.8 x 0.2 x 0.4 cm on prior exam and is not appreciably changed in size. This is normal in size and has normal ultrasound morphology and flow. 1.1 x 0.3 x 0.6 cm newly appreciated level 3 lymph node. This is normal in size and has normal ultrasound morphology and flow. Level 5A 0.9 x 0.2 x 0.6 cm lymph node. This is decreased in size from 1.1 x 0.3 x 0.8 cm on prior exam. This is normal in size and has normal ultrasound morphology and flow. 0.5 x 0.2 x 0.5 cm right level 5B lymph node. This is newly appreciated from prior exam. This has normal ultrasound morphology and flow. Left: Level 1B 1.5 x 0.6 x 1.3 cm lymph node. This is newly appreciated from previous exam. Morphology and flow not optimally assessed. Level 1B 1.1 x 0.6 x 1.1 cm lymph node. This may be decreased in size from 1.8 x 0.5 x 1.5 cm on previous exam. Morphology and flow not optimally assessed. US/US soft tiss head and/or neck IMPRESSION: Overall interval decrease in size in bilateral cervical lymph nodes from February 2025 exam. There are several newly appreciated normal-appearing bilateral cervical lymph nodes. Electronically signed by: Susan More MD 09/06/2025 08:22 AM [facility] [place]
== END 2025-09-04 07:43 | disposition home or self-care (01) ==
LOC: HO.US 07:42
PROVIDERS: PCP Nurse Practitioner; Visit Provider Otolaryngology
DX: Z00.00 Encounter for general adult medical examination without abnormal findings (principal); R59.0 Localized enlarged lymph nodes
CPT/HCPCS: 76536

== ENCOUNTER → 2025-09-04 07:44 | Outpatient (BNV) | payer OTHER, SELFPAY | PROVIDERS: PCP Nurse Practitioner; Visit Provider Radiology Diagnostic Radiology | DX: R59.0 Localized enlarged lymph nodes (principal) | CPT/HCPCS: 76536 ==

== ENCOUNTER 2025-09-16 06:50 | Outpatient (AMB) | payer OTHER, SELFPAY ==
--- NOTE | 2025-09-16 07:30 | MHC.PC.OV ---
Intake Visit Reasons: Lymph node f/u Allergies cephalexin (Keflex) Allergy (Intermediate, Verified 07/13/25 09:49) syncope ciprofloxacin (Cipro) Allergy (Intermediate, Verified 07/13/25 09:49) dizziness penicillin V Allergy (Intermediate, Verified 07/13/25 09:49) Hives Sun Allergy (Intermediate, Uncoded 07/13/25 09:49) Hives from direct sunlight Medication List - Last Reconciled 09/16/25 by TRACY AndrewsP- albuterol sulfate 90 mcg/actuation (Ventolin HFA) 2 puffs inhalation Q4-6H PRN cyanocobalamin (vitamin B-12) (Vitamin B-12) 1,000 mcg PO DAILY gabapentin 300 mg PO .4 x a day PRN levothyroxine 100 mcg PO DAILY tizanidine 4 mg PO BID PRN Tobacco use date assessed: 02/28/23 HPI Lymph node f/u HPI Details History of Present Illness The patient is a 44 year old female presenting for a telehealth follow-up for ongoing cervical, inguinal, and axillary lymphadenopathy. A recent neck ultrasound this month showed a decrease in the size of bilateral cervical lymph nodes compared to February, but also revealed several newly appreciated, normal-appearing bilateral cervical lymph nodes. The patient recently developed what appears to be possible seizures, which has paused the planned general surgery workup for lymph node biopsies. She now requires clearance from neurology before she can undergo anesthesia for the biopsies. he did report a new lymph node popping up, pointing to her left lateral torso. I am unable to see it, because the video encounter is blurry today. She reports this was seen previously by a medical provider, they told me it was a lipoma . The patient denies any fevers but reports experiencing chills. Lab work, including a CBC, TSH, and CMP, was ordered in February but has not yet been completed. She continues to actively smoke cigarettes. Review of Systems - Constitutional: Reports chills, denies fevers. - Neurological: Reports possible seizures. - Lymphatic: Reports ongoing cervical, inguinal, and axillary lymphadenopathy. Plan 1. Generalized Lymphadenopathy The patient has ongoing cervical, inguinal, and axillary lymphadenopathy. The plan for surgical biopsies is currently paused pending neurological clearance for possible seizure activity. Once cleared by neurology, she will be scheduled with general surgery to have biopsies performed on multiple nodes under anesthesia. The provider will assist with scheduling the surgical appointment if necessary. 2. Seizure Disorder, Unspecified The patient has developed symptoms concerning for possible seizures, requiring evaluation and clearance by neurology. The next step is a 48-hour EEG scheduled for next month. The patient will follow up after the EEG and her neurology appointment. 3. Pending Lab Work Lab work including a CBC, TSH, and CMP ordered in February was not completed. The patient will get these labs done in the near future. Discussion Notes I conducted a telehealth follow-up with the patient regarding her ongoing generalized lymphadenopathy and new onset of possible seizures. I explained that the surgical plan for lymph node biopsies has been paused until she receives clearance from neurology. We discussed that the next step is a 48-hour EEG scheduled for next month, after which we can proceed with arranging the biopsies with general surgery. I instructed her to contact me after the EEG and her neurology appointment, and I will assist with scheduling the surgery if needed. I also reminded her to complete the outstanding lab work from February, including a CBC, TSH, and CMP, which she agreed to do. Patient Instructions - You are scheduled for a 48-hour EEG test next month to investigate the cause of your recent seizure-like events. - You must complete this test and be cleared by your neurology specialist before you can have surgery to biopsy your lymph nodes. - Please go to the lab to get the blood tests (CBC, TSH, and CMP) that were ordered for you back in February. - Please contact our office after your EEG and neurology appointment to coordinate the next steps in your care. [facility] Medical History Seizure Rheumatoid arthritis Medullary sponge kidney Anxiety Emphysema of lung Breast implant status Cervical lymphadenopathy Vitamin D deficiency Postoperative hypothyroidism Thyroid cancer Graves disease Interstitial cystitis Surgical History History of bladder surgery Hx of bilateral mastectomy History of incision and drainage S/P thyroidectomy (~08/2020) Hx of breast reduction, elective Hx of lumpectomy Hx of knee surgery History of kidney surgery History of partial hysterectomy Family History Mother Graves disease Heart disease Breast cancer Maternal Aunt History of kidney cancer FH: kidney cancer Maternal Aunt History of carcinoma Breast cancer Maternal Grandmother Colon cancer Family/Other Family history of autoimmune disorder Mother Triple negative breast carcinoma Maternal Aunt History of rectal or anal cancer Social History Household Members: Significant Other Housing: House Are you a primary director of career resources to a significant other at home: No Do you presently have visiting nurse or other home services: No Alcohol intake: former Patient Tobacco Use Status: Current everyday Tobacco user Tobacco use type: Smokeless Tobacco Cigarettes Per Day: 2 Years Smoked: 29 e-Cigarette/Vaping Use: Currently Using Second Hand Smoke Exposure: No Substance Use Type: Marijuana Current occupational status: employed 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 occupational exposures/hazards: Yes Gender identity: Female Cognitive needs: No Hearing needs: No Vision needs: No Questionnaire Thrive Questionnaire Date Thrive assessed: 03/08/25 I am a: Patient What is your living situation today?: I do not have a steady places to live I choose not to answer this question Within the past 12 months, did the food you bought not last and you didn't have the money to get more?: Sometimes True Within the past 12 months, did you worry whether your food would run out before you got money to buy more?: I choose not to answer this question Do you have trouble paying for medicines?: I choose not to answer this question Do you have trouble getting transportation to medical appointments?: No Do you have trouble paying your heating and electricity bill?: I choose not to answer this question Do you have trouble taking care of your child, family member or friend?: I choose not to answer this question Do you have trouble with day-to-day activities such as bathing, preparing meals, shopping, managing finances, etc.?: I choose not to answer this question Are you currently unemployed and looking for a job?: I choose not to answer this question Are you interested in more education?: I choose not to answer this question Please select the resources that you would like help with: Housing/Care Home Currently or been in a relationship where the following occur: No concerns reported THRIVE Score: 2 BLESSING-7 AMB Questionnaire BLESSING-7 Date BLESSING - 7 assessed: 10/16/21 Source: Developed by Drs. Demetrio Mustafa, Francesco Laboy and colleagues, with an educational audrey from [employer]. Physical exam (Primary Care) Tobacco/Smoking Status: Tobacco use Status Tobacco use date assessed 02/28/23 03/16/25 07:54 Patient Tobacco Use Status Current everyday Tobacco 06/30/25 09:57 Tobacco use type Smokeless Tobacco 03/18/25 11:14 e-Cigarette/Vaping Use Currently Using 03/16/25 07:54 Thrive Assessment: Date of Thrive Assessment Date Thrive assessed 03/08/25 03/16/25 07:54 Currently or been in a relationship where the following occur: No concerns reported Telehealth Telehealth Telehealth Platform: [employer] Location of provider rendering services: practice address Location of patient: address on file Patient Identification confirmed using: Name, : Yes Telehealth method: video Patient verbally consented to treatment: Yes Patient verbally consented to billing insurance company: Yes Patient informed of any privacy concerns related to visit: Yes Minutes spent on Phone/Video with Pt.: 15 Coding Level of Care Code Tele Est Pt Level 3 ([id number]) Diagnoses Seizure-like activity R56.9 Lymphadenopathy R59.1 Assessment & Plan Assessment & Plan (1) Seizure-like activity: Code(s): R56.9 - Unspecified convulsions Category: Medical (2) Lymphadenopathy: Code(s): R59.1 - Generalized enlarged lymph nodes Category: Medical Plan . Medications: Discontinued levothyroxine Discontinued Reason: Doctor's Order 88 mcg PO DAILY 90 caps 1RF
== END 2025-09-16 08:12 | disposition home or self-care (01) ==
LOC: HO.HMCC 06:50
PROVIDERS: PCP Nurse Practitioner; Visit Provider Nurse Practitioner Family
DX: R56.9 Unspecified convulsions (principal); R59.1 Generalized enlarged lymph nodes

== ENCOUNTER 2025-09-21 07:22 | Outpatient (REF) | payer OTHER, SELFPAY ==
[2025-09-21 10:41] LABS: MANUAL DIFF FLAG NO
[2025-09-21 10:51] LABS: Hematocrit 37.0 % (37.0-47.0); Hemoglobin 12.2 g/dl (12.0-16.0); Imm Gran Abs Auto 0.06 X10*3/uL (0.00-0.03); Imm Gran Pct Auto 0.4 % (0.0-0.4); Lymphocytes Absolute Auto 2.9 X10*3/uL (1.2-4.9); Mean Corpuscular HGB Conc 33.0 g/dl (31.0-35.0); Mean Corpuscular Hemoglobin 32.0 pg (27.0-33.0); Mean Corpuscular Volume 97.1 fL (80.0-98.0); NRBC Abs Auto 0.000 X10*3/uL (0.0-0.012); NRBC Pct Auto 0.0 /100WBC (0.0-0.2); Platelet Count 349 X10*3/uL (160-400); Red Blood Count 3.81 X10*6/uL (4.20-5.50); White Blood Count 13.5 X10*3/uL (4.8-10.8)
[2025-09-21 11:15] LABS: Alanine Aminotransferase 10 U/L (0-31); Albumin Level 4.1 g/dL (3.5-5.0); Alkaline Phosphatase 42 U/L (39-117); Anion Gap 9 (12-20); Aspartate Amino Transferase 20 U/L (5-31); Blood Urea Nitrogen 12 mg/dL (9-16); Calcium 8.8 mg/dL (8.4-10.2); Carbon Dioxide 28 mmol/L (22-29); Chloride 108 mmol/L (96-108); Estimated Glomerular Filt Rate > 60; Magnesium 2.2 mg/dL (1.6-2.6); Potassium 3.7 mmol/L (3.3-5.1); Sodium 141 mmol/L (135-145); Total Protein 5.9 g/dL (6.5-8.0)
[2025-09-21 12:04] LABS: Free T4 (Free Thyroxine) 0.72 ng/dL (0.71-1.85)
== END 2025-09-21 07:23 | disposition home or self-care (01) ==
LOC: HO.HMGCLDS 07:22
PROVIDERS: PCP Nurse Practitioner Family; Visit Provider Nurse Practitioner Family
DX: R56.9 Unspecified convulsions (principal); R40.20 Unspecified coma
CPT/HCPCS: 36415; 80053; 83735; 84439; 84443; 85025